=== PATIENT | male | born 1945 | race Caucasian/White ===

== ENCOUNTER 2024-04-16 18:08 | Emergency (ER) | payer OTHER, SELFPAY ==
[2024-04-16] VITALS (7 sets, daily range): BP systolic 122–151; BP diastolic 74–101; PULSE 83–89; BMI 29.6
--- NOTE | 2024-04-16 18:21 | ED.GENMED ---
History of Present Illness
General
Chief Complaint: Fainting/Passed Out
Source: patient
Exam Limitations: none
Time Seen by Provider: 04/16/24 18:09
History of Present Illness
History of Present Illness:
This is a 78 year old male that comes in with c/o dizziness and near syncope. States that he was carving the [place] and everything started to go black. States that he sat down in a chair and he was shaking. States that he remembers people around him
and putting a cool cloth on his head. States that they were asking him if he could hear them and the told them he could. States that he felt like he was outside of his body. States that he was dizzy. States that he felt a little SOB, had some dry
heaves, slight headache and dizziness. States that he was sweating. Denies any fever, chills, chest pain, abd pain, nausea, diarrhea, urinary burning
Past History
Past History
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
ED Past Surgical History: Cholecystectomy, Orthopedic (Bilateral knee surgery) and Tonsilectomy
Social History
Tobacco: Former smoker
Alcohol: None
Personal:
Living: with family
Family History
Family History: Unable to obtain
Review of Systems
Review of Systems
All Other Systems: ROS reviewed and negative except as documented in HPI and ROS
Constitutional: Reports other (Sweating, ); Denies fever or chills
EENT: Reports no symptoms
Respiratory: Reports trouble breathing; Denies cough
Cardiac: Reports no symptoms; Denies chest pain
ABD/GI: Reports other (Dry heaves); Denies abdominal pain, nausea or diarrhea
: Reports no symptoms; Denies dysuria, frequency or urgency
Musculoskeletal: Reports no symptoms
Skin: Reports no symptoms
Neurological: Reports dizzy and headache (Slight)
Psychiatric: Reports no symptoms
Phy Exam
General Physical Exam
General Presentation: no apparent distress
General age: appears stated age
General Skin: warm and dry
General Habitus: elderly
General Mental: alert
General Hydration: appears well hydrated
ENT Exam
ENT Exam: TM's normal, pharynx normal and neck supple
Eye Exam
Eye Exam: EOMI
Cardiovascular Exam
Cardiovascular Exam: regular rate/rhythm, no edema, no murmur and normal peripheral pulses
Pulmonary Exam
Pulmonary Exam: no respiratory distress, no rales, chest non tender, no crackles, no rhonchi, no cough and other (Faint exp wheezing noted on the left)
Gastrointestinal Exam
Gastrointestinal Exam: normal bowel sounds, non tender, soft, no organomegaly, no pulsatile mass and non distended
Musculoskeletal Exam
Musculoskeletal Exam: full ROM and no edema
Skin Exam
Skin Exam: normal color, warm/dry, no rash and no petechia
Psychiatric Exam
Psychiatric Exam: normal mood/affect
Course
Orders/Labs/Results
Orders:
Orders
04/16/24 18:15
Electrocardiogram (*1) Urgent
Reason for Study: Syncope
04/16/24 18:16
EKG- Treatment ONCE
04/16/24 18:20
0.9% Sodium Chloride 1000 ml [Nss] 1,000 ml IV BOLUS
04/16/24 18:21
CT Head W/o Iv Contrast Urgent
Comment:
Reason For Exam: Dizzines, headache
Urinalysis Reflex To Culture Urgent
04/16/24 18:30
Basic Metabolic Panel Urgent
Complete Blood Count/With Diff Urgent
04/16/24 19:21
Add On- LAB Urgent
Tests Added?: Liver enzymes
04/16/24 21:00
Troponin I Urgent
04/16/24 21:47
Comprehensive Metabolic Panel Urgent
04/16/24 21:54
Orthostatic VS- Treatment ONCE
Abnormal Lab Results
04/16/24 04/16/24
18:30 18:38
RBC 3.74 L 10^6/uL
(4.70-6.10)
Hgb 12.7 L g/dL
(13.0-18.0)
Hct 37.5 L %
(39.0-52.0)
MCV 100.3 H fL
(80.0-94.0)
MCH 34.0 H pg
(27.0-31.0)
MPV 10.6 H fL
(7.4-10.4)
Carbon Dioxide 20 L mmol/L
(22-30)
Glucose 122 H mg/dl
(70-99)
POC Glucose 116 H mg/dl
(70-99)
04/16/24 18:30
h/h SLIGHTLY LOW. Anemic, hyperglycemia. troponin <0.012,
Vital Signs
Initial and Last Documented VS:
Initial Vital Signs
Temp Pulse Resp Pulse Ox
98.7 F 71 16 100
04/16/24 18:10 04/16/24 18:10 04/16/24 18:10 04/16/24 18:10
Last Documented Vital Signs
Temp Pulse Resp BP Pulse Ox
98.7 F 73 17 139/101 99
04/16/24 18:10 04/16/24 20:00 04/16/24 20:00 04/16/24 20:00 04/16/24 20:00
MDM/Problems Addressed
Differential Diagnosis Includes:
Dehydration, Syncope, Hypoglycemia
MDM/Problems Addressed:
This is a 78 year old male that comes in with c/o near syncope. 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 States that he sat down in the chair. States that he is not sure if he passed out but EMS told nursing that
the patient did pass out
Will check labs, CT head, give IV fluids, ECG.
Back into see patient. Explained that the CT of his head is normal. Patient states that he is not dizzy any longer. Explained to patient that he needs to eat and drink during the day so his body has something to work with. Patient was able to get
OOB and walk around the room and is very stable. Will discharge home.
Chronic conditions affecting care:
history of CVA,
Acute Exacerbation and/or Progression of Chronic Illness:
NA
*Radiology
Radiology exam reviewed: radiology read reviewed (CT head- night hawk- No acute intracranial process. No intracranial bleed. No calvarial fracture. Unchanged mild parenchymal volume loss)
*Pulse Oximetry
Patient hypoxic: no
*[employer] Interpretation
Rate: normal
Heart Rate: 79
Rhythm: sinus
*Critical Care Note
Total Time (30-74mins, 75-104mins- exclusive of procedures): Not Applicable
ED Attending Note
-
Portions of this chart may have been created with voice recognition software.� Occasional wrong word or��sound alike� substitutions may have occurred due to the inherent limitations of voice recognition software.
Discharge Plan
Departure
Patient Disposition: Home (Routine Discharge)
Date of Disposition: 04/16/24
Time of Disposition: 22:08
Patient with high blood pressure during this ER visit?: Yes
Condition: Good
Covid-19: Not Applicable
Discharge Problem:
Near syncope, Dizziness
Instructions: Syncope (Fainting) (DC), Dizziness, Nonvertigo, (DC), BLOOD PRESSURE
Prescriptions:
No Action
simvastatin [Zocor] 10 mg Tablet
10 mg PO HS
amlodipine [Norvasc] 5 mg Tablet
5 mg PO DAILY
famotidine [Pepcid] 20 mg Tablet
20 mg PO DAILYPRN PRN (Reason: gerd)
levothyroxine [Synthroid] 50 mcg Tablet
50 mcg PO DAILY
montelukast [Singulair] 10 mg Tablet
10 mg PO HS
allopurinol 300 mg Tablet
300 mg PO DAILY
albuterol sulfate [ProAir HFA] 90 mcg/actuation Hfa Aerosol Inhaler
2 puff INHALATION R QIDPRN PRN (Reason: sob)
lisinopril 40 mg Tablet
40 mg PO DAILY
fluoxetine 20 mg Capsule
20 mg PO BID
Referrals:
Jessica Do, DO [Family Provider] - Call in 1-3 days for appt
Activity Restrictions/Additional Instructions:
As discussed, your CT of the head is negative for any acute process. Your Blood work shows that you are a little anemic but otherwise normal. Please increase your water intake to 8-8oz glasses daily. Please eat three meals daily or 6 small meals
daily as your body needs something to work with. Follow up with the family doctor for recheck. IF YOU HAVE INCREASED DIZZINESS, OR YOU HAVE ANY OTHER CONCERNS PLEASE RETURN TO THE EMERGENCY ROOM.
Interventions
Interventions:
*Risk Screen - Suicide Last Done: 04/16/24 18:10
*General Assessment Last Done: 04/16/24 18:10
*Neglect/Abuse Screening Last Done: 04/16/24 18:10
*ED COVID-19 Vaccine History Last Done: 04/16/24 18:10
ED- Cardiac Assessment Last Done: 04/16/24 18:48
ED- Neurological Assessment Last Done: 04/16/24 18:48
Discharge Date and Time
Print Language: TURKMEN
[2024-04-16] MEDS: NSS 1000 IV (18:28)
[2024-04-16 18:39] LABS: % Basophils 0.9 % (0-2); % Eosinophils 1.3 % (0-6); % Immature Granulocytes 0.4 % (0-0.5); % Lymphocytes 20.9 % (20.5-51.1); % Monocytes 6.9 % (1.7-9.3); % Neutrophils 69.6 % (42.2-75.2); Absolute Basophils 0.1 10^3/uL (0-0.2); Absolute Eosinophils 0.1 10^3/uL (0-0.7); Absolute Monocytes 0.6 10^3/uL (0.1-0.6); Absolute Neutrophils 6.5 10^3/uL (1.4-6.5); Hematocrit 37.5 % (39.0-52.0); Hemoglobin 12.7 g/dL (13.0-18.0); Mean Corp Hgb Conc. 33.9 g/dL (33.0-37.0); Mean Corpuscular Volume 100.3 fL (80.0-94.0); Mean Platelet Volume 10.6 fL (7.4-10.4); Nucleated Red Blood Cells % 0.2 % (-); Platelet Count 196 10^3/uL (130-400); Red Blood Cell Count 3.74 10^6/uL (4.70-6.10); Red Cell Dist. Width 13.2 % (11.5-14.5); White Blood Cell Count 9.3 10^3/uL (4.8-10.8)
[2024-04-16 18:40] LABS: Glucose - Point of Care 116 mg/dl (70-99)
[2024-04-16 18:56] LABS: Blood Urea Nitrogen 19 mg/dl (9-20); Calcium 9.5 mg/dl (8.4-10.2); Carbon Dioxide 20 mmol/L (22-30); Chloride 104 mmol/L (98-107); Estimated Creatinine Clearance 47 ml/min; Glucose 122 mg/dl (70-99); Sodium 139 mmol/L (135-145); eGFR 55.53
[2024-04-16 21:27] LABS: Troponin I < 0.012 ng/ml
== END 2024-04-16 23:13 | disposition home or self-care (01) ==
LOC: EMR 18:08
PROVIDERS: Clinical Nurse Specialist Family Health; EMERGENCY PHYSICIAN Emergency Medicine; FAMILY PHYSICIAN Family Medicine
DX: R55 Syncope and collapse (principal); R42 Dizziness and giddiness; I10 Essential (primary) hypertension; Z87.891 Personal history of nicotine dependence
CPT/HCPCS: 96360; 70450; 80048; 82962; 84484; 85025; 93005; 99285

== ENCOUNTER 2024-06-15 22:33 | Inpatient (IN) | payer OTHER, SELFPAY ==
[2024-06-15] VITALS (7 sets, daily range): BP systolic 133–161; BP diastolic 58–84; BMI 29.5
--- NOTE | 2024-06-15 16:44 | ED.GENMED ---
ED Provider Triage
<David Pizano PA-C - Last Filed: 06/15/24 16:45>
-
Patient seen by provider in Triage?: Seen in Triage
Attestation: A medical screening examination has been initiated by a qualified medical provider. Based on the assessment performed at this time, it has been determined that an emergent medical condition may exist and the patient has been informed
that further medical evaluation and possible additional diagnostic testing may be needed.
HPI: 79-year-old male sent to the emergency department by primary care provider for URI-like symptoms x 1 week. At office today found to be hypoxic. Sent to the ER for further evaluation. Pulse ox 86% on room air here. Placed on 2 L via nasal
cannula. Labs and chest x-ray ordered.
GENERAL: Alert , in no apparent distress
EYE: No visual abnormalities.
NECK: Trachea midline
ENT: No visible abnormalities.
LUNGS: No acute respiratory distress
NEUROLOGICAL: Alert and oriented
SKIN: Skin intact. No visible changes.
MUSCULOSKELETAL: Moving extremities normally
PSYCH: Normal and appropriate interaction.
This is a medical evaluation conducted in person to initiate diagnostic evaluation and provide initial therapeutics. Please see further documentation by the treating clinician.
History of Present Illness
<David Pizano PA-C - Last Filed: 06/15/24 16:45>
General
Chief Complaint: Breathing Problem
Time Seen by Provider: 06/15/24 18:20
<Dhruv Weinstein MD - Last Filed: 06/15/24 21:13>
General
Source: patient, family (Daughter) and physician (Discussed directly with his primary physician)
Exam Limitations: none
Nursing documentation reviewed up to this point in time: agreed with
History of Present Illness
History of Present Illness:
79-year-old male with a past medical history of hypertension and hyperlipidemia, mild asthma presents to the emergency room with his daughter�referred by his primary physician for evaluation of worsening cough and dyspnea, hypoxia. Patient reports
that he started feeling unwell with 'a cold' about 2 weeks ago�he says that he had nasal congestion/rhinorrhea, watery eyes. About a week later he started to develop a cough and he was seen by his primary doctor and prescribed benzonatate and
Robitussin DM for symptomatic relief and told to use a [place] pot. He says that he did these things but unfortunately he has had worsening cough and shortness of breath and so he scheduled a follow-up appointment. According to his primary
physician at the follow-up appointment he was labored with his breathing and hypoxic and he was referred directly to the ER. In addition to respiratory complaints he also reports nausea with occasional vomiting and diarrhea over the past week. He
says that he noticed some swelling around his ankles. He has not noted any fever. He denies any chest pain. He denies any abdominal pain. He denies any other complaints.
Past History
<David Pizano PA-C - Last Filed: 06/15/24 16:45>
Past History
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
ED Past Surgical History: Cholecystectomy, Orthopedic (Bilateral knee surgery) and Tonsilectomy
Social History
Tobacco: Former smoker
Alcohol: None
Personal:
Living: with family
Family History
Family History: Unable to obtain
Review of Systems
<Dhruv Weinstein MD - Last Filed: 06/15/24 21:13>
Review of Systems
All Other Systems: ROS reviewed and negative except as documented in HPI and ROS
Constitutional: Reports fatigue; Denies fever
EENT: Reports runny nose
Respiratory: Reports cough and trouble breathing
Cardiac: Denies chest pain or palpitations
ABD/GI: Reports nausea, vomiting and diarrhea; Denies abdominal pain
: Denies flank pain
Musculoskeletal: Reports edema; Denies neck pain or back pain
Neurological: Denies dizzy or headache
Phy Exam
<Dhruv Weinstein MD - Last Filed: 06/15/24 21:13>
Physical Exam
Physical Exam:
General: Awake, alert, oriented x3; no acute distress
Head: Normocephalic, atraumatic
Eyes: Conjunctiva normal
Throat: Airway intact, handling secretions
Neck: Trachea midline, supple without meningismus
Lungs: Mild tachypnea, normal work of breathing; pulse ox in the 80s requiring 6 L nasal cannula here; he has rales at the lung bases right greater than left and hacking cough throughout exam
Heart: Regular rate and rhythm, no murmurs, gallops, or rubs
Abd: Soft, non distended, nontender
Neuro: No gross deficits
Extremities: Trace edema around the ankles, equal pulses in all extremities
Scores
<Dhruv Weinstein MD - Last Filed: 06/15/24 21:13>
Heart Failure Risk
Heart Failure Risk Score: Not Applicable
Heart Score for Chest Pain Patients
STEMI patient?: Not applicable
Withdrawal Assessment of Alcohol
Withdrawal Assessment Completed?: Not applicable
Course
<David Pizano PA-C - Last Filed: 06/15/24 16:45>
Orders/Labs/Results
Orders:
Orders
06/15/24 17:02
COVID-19 Antigen Urgent
Source: Nasal Swab
Complete Blood Count/With Diff Urgent
Comprehensive Metabolic Panel Urgent
NT-proBNP Urgent
Influenza A+B Rapid Molecular Urgent
PHANI Source: Nasal Swab
Specimen Description:
06/15/24 18:21
CR Chest Portable - 1 View Urgent
Comment:
Reason For Exam: sob
Reason Study Needs to be Portable: Unable to Transport
06/15/24 18:44
Electrocardiogram (*1) Urgent
Reason for Study: Shortness of Breath
EKG- Treatment ONCE
06/15/24 19:07
Troponin I Urgent
06/15/24 19:48
CT Chest PE Study Urgent
Comment:
Reason For Exam: sob, hypoxia
PTT Urgent
Prothrombin Time Urgent
06/15/24 20:27
Cefepime HCl [Maxipime] 1,000 mg IV NOW STA
Vancomycin [Vancocin] 2,000 mg 0.9% Sodium Chloride 500 ml [Nss] 500 ml IV NOW
06/15/24 20:28
0.9% Sodium Chloride 1000 ml [Nss] 1,000 ml IV BOLUS
06/15/24 20:30
Blood Culture Q30M
PHANI Source: Blood/Venous
Specimen Description:
06/15/24 21:00
Blood Culture Q30M
PHANI Source: Blood/Venous
Specimen Description:
06/15/24 21:01
Ipratropium/Albuterol Sulfate [Duoneb] 3 ml INH R NOW ONE
Abnormal Lab Results
06/15/24 06/15/24
17:02 19:07
RBC 3.34 L 10^6/uL
(4.70-6.10)
Hgb 11.3 L g/dL
(13.0-18.0)
Hct 33.0 L %
(39.0-52.0)
MCV 98.8 H fL
(80.0-94.0)
MCH 33.8 H pg
(27.0-31.0)
Absolute Neuts (auto) 7.5 H 10^3/uL
(1.4-6.5)
Absolute Lymphs (auto) 0.9 L 10^3/uL
(1.2-3.4)
Absolute Monos (auto) 0.9 H 10^3/uL
(0.1-0.6)
Neutrophils % 79.9 H %
(42.2-75.2)
Lymphocytes % 9.7 L %
(20.5-51.1)
Monocytes % 10.0 H %
(1.7-9.3)
Sodium 132 L mmol/L
(135-145)
Chloride 94 L mmol/L
(98-107)
BUN 46 H mg/dl
(9-20)
Creatinine 1.6 H mg/dL
(0.7-1.3)
Glucose 126 H mg/dl
(70-99)
Troponin I 1.110 H* ng/ml
06/15/24 17:02
06/15/24 17:02
Vital Signs
Initial and Last Documented VS:
Initial Vital Signs
Temp Pulse Resp BP Pulse Ox
37.1 C 87 20 133/64 93
06/15/24 16:44 06/15/24 16:44 06/15/24 16:44 06/15/24 16:44 06/15/24 16:44
Last Documented Vital Signs
Temp Pulse Resp BP Pulse Ox
37.1 C 99 27 153/58 90
06/15/24 16:44 06/15/24 19:45 06/15/24 19:45 06/15/24 19:00 06/15/24 19:30
<Dhruv Weinstein MD - Last Filed: 06/15/24 21:13>
Orders/Labs/Results
Orders:
Orders
06/15/24 17:02
COVID-19 Antigen Urgent
Source: Nasal Swab
Complete Blood Count/With Diff Urgent
Comprehensive Metabolic Panel Urgent
NT-proBNP Urgent
Influenza A+B Rapid Molecular Urgent
PHANI Source: Nasal Swab
Specimen Description:
06/15/24 18:21
CR Chest Portable - 1 View Urgent
Comment:
Reason For Exam: sob
Reason Study Needs to be Portable: Unable to Transport
06/15/24 18:44
Electrocardiogram (*1) Urgent
Reason for Study: Shortness of Breath
EKG- Treatment ONCE
06/15/24 19:07
Troponin I Urgent
06/15/24 19:48
CT Chest PE Study Urgent
Comment:
Reason For Exam: sob, hypoxia
PTT Urgent
Prothrombin Time Urgent
06/15/24 20:27
Cefepime HCl [Maxipime] 1,000 mg IV NOW STA
Vancomycin [Vancocin] 2,000 mg 0.9% Sodium Chloride 500 ml [Nss] 500 ml IV NOW
06/15/24 20:28
0.9% Sodium Chloride 1000 ml [Nss] 1,000 ml IV BOLUS
06/15/24 20:30
Blood Culture Q30M
PHANI Source: Blood/Venous
Specimen Description:
06/15/24 21:00
Blood Culture Q30M
PHANI Source: Blood/Venous
Specimen Description:
06/15/24 21:01
Ipratropium/Albuterol Sulfate [Duoneb] 3 ml INH R NOW ONE
Abnormal Lab Results
06/15/24 06/15/24
17:02 19:07
RBC 3.34 L 10^6/uL
(4.70-6.10)
Hgb 11.3 L g/dL
(13.0-18.0)
Hct 33.0 L %
(39.0-52.0)
MCV 98.8 H fL
(80.0-94.0)
MCH 33.8 H pg
(27.0-31.0)
Absolute Neuts (auto) 7.5 H 10^3/uL
(1.4-6.5)
Absolute Lymphs (auto) 0.9 L 10^3/uL
(1.2-3.4)
Absolute Monos (auto) 0.9 H 10^3/uL
(0.1-0.6)
Neutrophils % 79.9 H %
(42.2-75.2)
Lymphocytes % 9.7 L %
(20.5-51.1)
Monocytes % 10.0 H %
(1.7-9.3)
Sodium 132 L mmol/L
(135-145)
Chloride 94 L mmol/L
(98-107)
BUN 46 H mg/dl
(9-20)
Creatinine 1.6 H mg/dL
(0.7-1.3)
Glucose 126 H mg/dl
(70-99)
Troponin I 1.110 H* ng/ml
06/15/24 17:02
06/15/24 17:02
Vital Signs
Initial and Last Documented VS:
Initial Vital Signs
Temp Pulse Resp BP Pulse Ox
37.1 C 87 20 133/64 93
06/15/24 16:44 06/15/24 16:44 06/15/24 16:44 06/15/24 16:44 06/15/24 16:44
Last Documented Vital Signs
Temp Pulse Resp BP Pulse Ox
37.1 C 99 27 153/58 90
06/15/24 16:44 06/15/24 19:45 06/15/24 19:45 06/15/24 19:00 06/15/24 19:30
<Dhruv Weinstein MD - Last Filed: 06/15/24 21:13>
MDM/Problems Addressed
Differential Diagnosis Includes:
Pneumonia, bronchitis, myocarditis with CHF, PE less likely
MDM/Problems Addressed:
79-year-old male presents for evaluation of worsening cough and shortness of breath in the setting of recent URI symptoms. Found to be hypoxic and tachypneic at PCPs office. Vitals and exam as above. Will send off labs including a CBC and a CMP.
Check proBNP and troponin. Will check COVID swab and flu. Will check chest x-ray. Check an EKG. Monitor closely reassess after the above.
Labs reviewed: CBC shows no leukocytosis, marginal anemia. CMP shows creatinine of 1.6�mild CHELSEA compared to baseline. Elevated BUN as well suggesting possible dehydration. Chest x-ray reviewed by me appears to show left retrocardiac pneumonia.
COVID and flu negative. Will send off blood cultures and cover with antibiotics. Certainly this would account for his hypoxia and cough/shortness of breath however his troponin came back markedly elevated at 1.11�certainly this could be demand
ischemia in the setting of marked hypoxia and renal insufficiency however given this finding we will check a CTA to rule out pulmonary embolism as well.
CTA negative for pulmonary embolism but does confirm multifocal pneumonia. Patient given fluids and antibiotics. CAD was noted on CT and troponin was elevated but patient is not having any chest pain and has had profound hypoxia from multifocal
pneumonia which I think is causing a demand ischemia; low suspicion for acute coronary syndrome but will trend troponins. Case discussed with hospitalist for admission.
Chronic conditions affecting care:
Asthma
<Dhruv Weinstein MD - Last Filed: 06/15/24 21:13>
*Radiology
Radiology exam reviewed: preliminary read by ED provider (Left retrocardiac pneumonia) and radiology read reviewed
*Pulse Oximetry
Patient hypoxic: yes
*EKG
Interpreted by ED Provider?: Yes
Heart Rate: 101
Rate: tachycardiac
Rhythm: sinus tachycardia
[place]: normal axis
Interval: normal interval
QRS Pattern: right bundle branch block
Ischemia: non-specific ST changes
*Critical Care Note
Total Time (30-74mins, 75-104mins- exclusive of procedures): 30
comment:
Critical care statement: A total of 30 minutes of critical care time was provided for this patient. This includes management of unstable vital signs, evaluation of the patient at bedside, frequent reassessment, discussion with
consultants/hospitalist, and review of pertinent medical records. This time was separate from time utilized to perform any aforementioned documented procedures
Data Reviewed
Review of Other/Old Records Reveals: Labs and Records
Source: patient, records and physician
<Dhruv Weinstein MD - Last Filed: 06/15/24 21:13>
Patient Management
Discussion with other providers: Hospitalist (Discussed with hospitalist)
Escalation/DeEscalation of care consider admission/obs:
Admission indicated
ED Attending Note
<David Pizano PA-C - Last Filed: 06/15/24 16:45>
-
Portions of this chart may have been created with voice recognition software.� Occasional wrong word or��sound alike� substitutions may have occurred due to the inherent limitations of voice recognition software.
Discharge Plan
Departure
Patient Disposition: Admit
Date of Disposition: 06/15/24
Time of Disposition: 21:11
Admit to doctor: [facility]
Presentation/result/management discussed w/ accepting MD/DO: Hospitalist
Discharge Problem:
Acute hypoxic respiratory failure, Pneumonia, Elevated troponin
Prescriptions:
No Action
simvastatin [Zocor] 10 mg Tablet
10 mg PO HS
amlodipine [Norvasc] 5 mg Tablet
5 mg PO DAILY
famotidine [Pepcid] 20 mg Tablet
20 mg PO DAILYPRN PRN (Reason: gerd)
levothyroxine [Synthroid] 50 mcg Tablet
50 mcg PO DAILY
montelukast [Singulair] 10 mg Tablet
10 mg PO HS
allopurinol 300 mg Tablet
300 mg PO DAILY
albuterol sulfate [ProAir HFA] 90 mcg/actuation Hfa Aerosol Inhaler
2 puff INHALATION R QIDPRN PRN (Reason: sob)
lisinopril 40 mg Tablet
40 mg PO DAILY
fluoxetine 20 mg Capsule
20 mg PO BID
Referrals:
Jessica Do, [Family Provider] -
Interventions
Interventions:
*Risk Screen - Suicide Last Done: 06/15/24 18:05
*General Assessment Last Done: 06/15/24 16:44
*Neglect/Abuse Screening Last Done: 06/15/24 18:05
ED- Fall Risk Assessment Last Done: 06/15/24 18:05
*ED COVID-19 Vaccine History Last Done: 06/15/24 18:05
ED- Cardiac Assessment Last Done: 06/15/24 18:05
ED- Pulmonary Assessment Last Done: 06/15/24 18:05
Discharge Date and Time
Print Language: FINNISH
[2024-06-15 17:22] LABS: Hemoglobin 11.3 g/dL (13.0-18.0); Mean Corp Hgb Conc. 34.2 g/dL (33.0-37.0); Mean Corpuscular Hgb 33.8 pg (27.0-31.0); Mean Corpuscular Volume 98.8 fL (80.0-94.0); Mean Platelet Volume 10.3 fL (7.4-10.4); Platelet Count 176 10^3/uL (130-400); Red Blood Cell Count 3.34 10^6/uL (4.70-6.10); Red Cell Dist. Width 13.3 % (11.5-14.5); White Blood Cell Count 9.4 10^3/uL (4.8-10.8)
[2024-06-15 17:40] LABS: % Basophils 0.2 % (0-2); % Immature Granulocytes 0.2 % (0-0.5); % Lymphocytes 9.7 % (20.5-51.1); % Neutrophils 79.9 % (42.2-75.2); Absolute Lymphocytes 0.9 10^3/uL (1.2-3.4); Absolute Monocytes 0.9 10^3/uL (0.1-0.6); Absolute Neutrophils 7.5 10^3/uL (1.4-6.5); Nucleated Red Blood Cells % 0 % (-)
[2024-06-15 17:41] LABS: NT-proBNP 922 pg/ml
[2024-06-15 17:59] LABS: COVID-19 Antigen Negative (Negative)
[2024-06-15 18:12] LABS: ALT (SGPT) 37 U/L (0-50); AST (SGOT) 41 U/L (17-59); Albumin 3.9 g/dl (3.5-5.0); Alkaline Phosphatase 98 U/L (38-126); Blood Urea Nitrogen 46 mg/dl (9-20); Calcium 8.9 mg/dl (8.4-10.2); Carbon Dioxide 25 mmol/L (22-30); Chloride 94 mmol/L (98-107); Estimated Creatinine Clearance 37 ml/min; Glucose 126 mg/dl (70-99); Potassium 4.2 mmol/L (3.5-5.1); Sodium 132 mmol/L (135-145); Total Bilirubin 1.1 mg/dl (0.2-1.3); Total Protein 6.6 g/dl (6.3-8.2); eGFR 43.02
[2024-06-15] MEDS: MAXIPIME 1000 MG IV (21:18)
[2024-06-15] MEDS: DUONEB 3 ML INH (21:19)
[2024-06-15] MEDS: NSS 1000 IV (21:19)
[2024-06-15 21:31] LABS: PT 15.5 Sec (11.4-14.6)
[2024-06-15 21:32] LABS: APTT 29.8 Sec (23.4-35.0)
[2024-06-15] MEDS: VANCOCIN 540 MG IV (21:42)
[2024-06-15 22:06] LABS: Troponin I 0.802 ng/ml
--- NOTE | 2024-06-15 22:12 | HPS.HSE ---
Family Physician
-
Family Physician: Jessica Do
Chief Complaint
-
upper respiratory symptoms
History of Present Illness
79-year-old male past medical history of hypertension, hyperlipidemia, mild asthma, skin cancer, CVA balance difficulty on right side, depression, back pain, herniated disc/bulging disc, IBS, eczema, presenting with URI symptoms for 1 week. He was
found to be hypoxemic at office today. Sent to the ER. Pulse ox 86% on room air. Patient been having cough, shortness of breath and hypoxia. He started feeling like he had a cold 2 weeks ago with nasal congestion, rhinorrhea and watery eyes. A
week later he developed cough and was seen by his primary care doctor prescribed benzonatate and Robitussin for symptomatic relief and told to use [place] pot. He has had worsening symptoms despite this. As per primary he had labored breathing and
hypoxia so was sent to the ER.
He is also been having chills and intermittent fevers, sore throat.
He also has nausea, occasional vomiting and diarrhea over the past week. Denies abdominal pain. He has some swelling around the ankles. Denies any chest pain.
He does not smoke. He quit alcohol 4 years ago.
His daughter and their family recently had upper respiratory symptoms and recently had flu.
Medical History
Past Medical History
Past Medical History: Reports Other (hypertension, hyperlipidemia, mild asthma, skin cancer, CVA balance difficulty on right side, depression, back pain, herniated disc/bulging disc, IBS, eczema)
Past Surgical History: Reports Other (Cholecystectomy, Orthopedic (Bilateral knee surgery) and Tonsilectomy)
Social History
Tobacco: Non-smoker
Alcohol: Former
Drug: None
Family History
Family History: Not pertinent
Allergies / Home Medications
Allergies reflects when Allergies were last updated in [facility].
Home Medications with original date entered in [facility]
Allergy/Medication List:
Allergies
Allergy/AdvReac Type Severity Reaction Status Date / Time
No Known Allergies Allergy Verified 06/15/24 16:44
Home Medications
albuterol sulfate 90 mcg/actuation aerosol inhaler 2 puff inhalation R QIDPRN PRN sob 04/16/24
allopurinol 300 mg tablet 300 mg PO DAILY 04/16/24
amlodipine 5 mg tablet (Norvasc) 5 mg PO DAILY 04/16/24
famotidine 20 mg tablet (Pepcid) 20 mg PO DAILYPRN PRN gerd 04/16/24
fluoxetine 20 mg capsule 20 mg PO BID 04/16/24
levothyroxine 50 mcg tablet (Synthroid) 50 mcg PO DAILY 04/16/24
lisinopril 40 mg tablet 40 mg PO DAILY 04/16/24
montelukast 10 mg tablet (Singulair) 10 mg PO HS 04/16/24
simvastatin 10 mg tablet (Zocor) 10 mg PO HS 04/16/24
Review of Systems
-
History Source: Patient
A 12 point ROS was completed and negative except as noted: Yes
Constitutional: Reports No Symptoms
EENT: Reports No Symptoms
Respiratory: Reports See HPI
Cardiac: Reports No Symptoms
Abdomen/GI: Reports No Symptoms
: Reports No Symptoms
Musculoskeletal: Reports No Symptoms
Skin: Reports No Symptoms
Neurological: Reports No Symptoms
Endocrine: Reports No Symptoms
Hematologic/Lymphatic: Reports No Symptoms
Psych: Reports No Symptoms
Physical Exam
Vital Signs
Vital Signs
Temp Pulse Resp BP Pulse Ox
98.7 F 119 32 147/60 88
06/15/24 16:44 06/15/24 21:45 06/15/24 21:45 06/15/24 21:02 06/15/24 21:45
Physical Exam
General: Well Developed, Well Nourished and No Apparent Distress
HEENT: NormoCephalic, Moist mucous membranes and Atraumatic
Respiratory: Wheezes
Cardiac: S1/S2 and Regular Rhythm; No Murmur or Rub
GI: Soft, Non Tender, Non Distended and Normal Bowel Sounds; No Organomegaly
Rectal: Deferred by Provider
Musculoskeletal: No Clubbing, No Cyanosis and No Edema
Skin: No Rash
Neuro: Nonfocal/grossly intact
Laboratory Results
-
06/15/24 17:02
06/15/24 17:02
Laboratory Results
PT 15.5 Sec (11.4-14.6) H 06/15/24 21:09
INR 1.20 06/15/24 21:09
APTT 29.8 Sec (23.4-35.0) 06/15/24 21:09
Total Bilirubin 1.1 mg/dl (0.2-1.3) 06/15/24 17:02
AST 41 U/L (17-59) 06/15/24 17:02
ALT 37 U/L (0-50) 06/15/24 17:02
Alkaline Phosphatase 98 U/L (38-126) 06/15/24 17:02
Troponin I 0.802 ng/ml H* D 06/15/24 21:20
Data Reviewed
-
Lab Data: Labs Reviewed by me
Impression/Plan
-
IMPRESSION:
PLAN:
# Multifocal pneumonia/acute viral bronchitis
-Patchy parenchymal opacity within both lung lobes as per chest x-ray
-CT PE shows confluent parenchymal airspace opacity within both lower lobes likely multifocal pneumonia
-COVID and influenza negative
-Blood cultures pending
-IV fluids
-Sputum culture
-Vancomycin/cefepime given in ER will switch to ceftriaxone/doxycycline
-Check strep antigen, Legionella, MRSA
-DuoNebs every 6 hours
# Acute kidney injury
-Continue IV fluids
-Hold lisinopril
# Nonischemic myocardial injury
-Troponin of 1
-Trend troponins
-No chest pain
-EKG shows sinus tachycardia with right bundle branch block, right bundle is old
Mild asthma
-Continue albuterol
-Continue montelukast
Essential hypertension
-Continue amlodipine
-Hold lisinopril
Hyperlipidemia
-Continue statin
Skin cancer
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
Depression
-Continue fluoxetine
Chronic back pain
Herniated disc/bulging disc
History of IBS
Eczema
Gout
-Continue allopurinol
Hypothyroidism
-Continue levothyroxine
Full code
DVT prophylaxis�heparin
Regular diet
[2024-06-16] VITALS (24 sets, daily range): BP systolic 118–156; BP diastolic 50–88; BMI 28.3
[2024-06-16] MEDS: NSS 1000 IV (03:31)
[2024-06-16] MEDS: VIBRAMYCIN 260 MG IV ×2 (04:20→16:50)
[2024-06-16] MEDS: STERILE WATER FOR INJECTION 10 ML IV (06:27)
[2024-06-16] MEDS: ROCEPHIN 1000 MG IV (06:27)
[2024-06-16 07:15] LABS: Hematocrit 29.3 % (39.0-52.0); Mean Corp Hgb Conc. 34.1 g/dL (33.0-37.0); Mean Corpuscular Hgb 33.6 pg (27.0-31.0); Mean Corpuscular Volume 98.3 fL (80.0-94.0); Platelet Count 170 10^3/uL (130-400); Red Blood Cell Count 2.98 10^6/uL (4.70-6.10); White Blood Cell Count 9.7 10^3/uL (4.8-10.8)
[2024-06-16 07:24] LABS: ALT (SGPT) 35 U/L (0-50); AST (SGOT) 53 U/L (17-59); Albumin 2.8 g/dl (3.5-5.0); Alkaline Phosphatase 84 U/L (38-126); Blood Urea Nitrogen 36 mg/dl (9-20); Carbon Dioxide 22 mmol/L (22-30); Chloride 103 mmol/L (98-107); Estimated Creatinine Clearance 54 ml/min; Glucose 107 mg/dl (70-99); Potassium 3.8 mmol/L (3.5-5.1); Sodium 136 mmol/L (135-145); Total Bilirubin 0.7 mg/dl (0.2-1.3); Total Protein 5.3 g/dl (6.3-8.2); eGFR > 60.00
[2024-06-16] MEDS: HEPARIN 5000 UNITS SC (08:23)
[2024-06-16] MEDS: LOW STRENGTH ASPIRIN 324 MG PO (08:47)
[2024-06-16 09:08] LABS: APTT 31.7 Sec (23.4-35.0)
--- NOTE | 2024-06-16 09:20 | CON.CAR ---
Addendum entered and electronically signed by Carlos Gtz MD 06/16/24 09:41:
I saw and examined the patient.
The BOOKS BINDER's note was reviewed and I agree with the note.
Comment: 79-year-old male with hypertension, dyslipidemia, and asthma who presented to the emergency department with hypoxia. He saw his PCP, Dr. Jessica Do and was found to be hypoxic. In the ER he has been found to have multifocal pneumonia
and troponin elevation to 8.
He does not endorse symptoms of angina or other concerning symptoms for ACS. I suspect this is likely due to his significant multifocal PNA and significant hypoxia requiring oxygen. However, we will obtain an echocardiogram and place him on
heparin for 48 hrs, and give him aspirin. Pending echocardiogram likely outpt stress test unless significant LV dysfunction.
- echo pending, if significant LV dysfunction then would plan for coronary angiography while in hospital, but recovering from multifocal PNA
- heparin gtt 48 hrs
- aspirin statin for risk factor modification
Original Note:
Consultation
Consultation Request
Date/Time Consultation Requested: 06/16/2024 08:30
Date/Time Consultation Performed: 06/16/2024 08:45
Requesting Provider: Dr. Laughlin
Performing Provider: HAZEL Liu for Dr. Tucker
Reason for Consultation: Abnormal troponin
Medical History
-
Chief Complaint: Shortness of breath
History of Present Illness:
Seymour Landa is an 79-year-old male with hypertension, dyslipidemia, and asthma who presented to the emergency department with hypoxia. He saw his PCP, Dr. Jessica Do and was found to be hypoxic. Seymour reports feeling unwell for almost 2 weeks.
He had a viral illness and thought every day he would get better but he actually continued to worsen. He has been very weak and using a wheelchair. He is admitted with multifocal pneumonia. Cardiology was consulted for an abnormal troponin.
Troponin currently 8.109. He has no chest pain. He has a chronic right bundle branch block on his EKG.
Past Medical History
Past Medical History: Asthma, HTN, Hypercholesterolemia and Hypothyroidism
Past Surgical History: Cholecystectomy and Tonsilectomy
Social History
Tobacco: Former Smoker
Personal:
Living: With Family (Daughter)
Employment: Retired (Finance)
Family History
Family History: Reviewed & Not Pertinent
Allergies / Home Medications
Allergy/AdvReac Type Severity Reaction Status Date / Time
No Known Allergies Allergy Verified 06/15/24 16:44
�Medication �Instructions �Recorded �Confirmed �Type
albuterol sulfate 90 mcg/actuation 2 puff inhalation R QIDPRN PRN sob 04/16/24 06/16/24 History
aerosol inhaler
allopurinol 300 mg tablet 300 mg PO DAILY 04/16/24 06/16/24 History
amlodipine 5 mg tablet (Norvasc) 5 mg PO DAILY 04/16/24 06/16/24 History
famotidine 20 mg tablet (Pepcid) 20 mg PO DAILYPRN PRN gerd 04/16/24 06/16/24 History
fluoxetine 20 mg capsule 20 mg PO BID 04/16/24 06/16/24 History
levothyroxine 50 mcg tablet 50 mcg PO DAILY 04/16/24 06/16/24 History
(Synthroid)
lisinopril 40 mg tablet 40 mg PO DAILY 04/16/24 06/16/24 History
montelukast 10 mg tablet 10 mg PO DAILYPRN PRN SOB 04/16/24 06/16/24 History
(Singulair)
simvastatin 10 mg tablet (Zocor) 10 mg PO HS 04/16/24 06/16/24 History
Review of Systems
-
History Source: Patient
All other systems: Negative unless noted
Constitutional: Fatigue and Chills
EENT: No Symptoms
Respiratory: Cough and Trouble Breathing
Cardiac: No Symptoms
Abdomen/GI: No Symptoms
: No Symptoms
Musculoskeletal: No Symptoms
Skin: No Symptoms
Neurological: Weakness
Endocrine: No Symptoms
Hematologic/Lymphatic: No Symptoms
Physical Exam
Vital Signs
Temp Pulse Resp BP Pulse Ox
98.7 F 98 24 146/81 93
06/15/24 16:44 06/16/24 08:21 06/16/24 07:38 06/16/24 08:21 06/16/24 08:21
Lab Results
06/16/24 06:42
Troponin I 8.190 ng/ml H* D 06/16/24 06:42
Plh-J-Sswescztirp Pept 922 pg/ml 06/15/24 17:02
Physical Exam
General: Well Developed, Well Nourished and Comfortable
HEENT: Normocephalic, Anicteric and Moist Mucous Membranes
Respiratory: Rhonchi and Accessory Resp Muscle Use
Cardiac: S1/S2, Regular Rhythm and Peripheral Edema (+1 B/L LE edema)
Breast: Deferred by me
GI: Soft, Non Tender, Non Distended and Normal Bowel Sounds
Rectal: Deferred by Provider
Genito-urinary: No Costovertebral Tender
Musculoskeletal: No Clubbing and No Cyanosis
Skin: Warm and Dry
Neuro: AO x 3
Hematologic/Lymphatic: No Lymphadenopathy
Psych: Calm
Impression / Plan
-
IMPRESSION/PLAN: 79M with hypertension, dyslipidemia, and asthma who presented to the emergency department with hypoxia
Acute hypoxemic respiratory failure - in the setting of multifocal pneumonia
-Requiring 15 L nasal cannula
-Antibiotics per primary
Abnormal troponin, likely type II HI in the setting of demand ischemia
-He has no chest pain
-Trend troponin to peak
-ASA 324 x 1 now, start heparin drip
-Echocardiogram
Hypertension
-BP slightly elevated, continue amlodipine, hold Linsionopril
Dyslipidemia, fasting lipid panel in a.m.
Coronary artery calcifications on CT
Former smoker, continue cessation recommended
Data Reviewed
-
EKG: Report Reviewed by me
CT Scan: Report Reviewed by me
Labs: Labs Reviewed by me
Old Records: Reviewed
[2024-06-16] MEDS: HEPARIN 25000 UNITS/250 ML IV (09:34)
[2024-06-16 10:22] LABS: Absolute Neutrophils -Man Diff 8.4 10^3/uL (1.4-6.5); Band Neutrophils 31 % (0-3); Lymphocytes 5 % (20-51); Metamyelocytes 4 % (-); Monocytes 4 % (2-9); Normal RBC Morphology Yes; Platelets Checked Yes; Segmented Neutrophils 56 % (42-75); Total Cells Counted 100
[2024-06-16] MEDS: NORVASC 5 MG PO (13:07)
[2024-06-16] MEDS: ROBITUSSIN DM 10 ML PO ×2 (13:49→23:41)
--- NOTE | 2024-06-16 15:07 | W.PN.HOSP.TC ---
Today's Communication/Plan
-
abx
incentive dinesh, acapella
hep ggt, asa
anticipate LHC
Assessment / Plan
Assessment / Plan
Physical Exam
General: Well Developed, Well Nourished and No Apparent Distress
HEENT: NormoCephalic, Moist mucous membranes and Atraumatic
Respiratory: Wheezes
Cardiac: S1/S2 and Regular Rhythm; No Murmur or Rub
GI: Soft, Non Tender, Non Distended and Normal Bowel Sounds; No Organomegaly
Rectal: Deferred by Provider
Musculoskeletal: No Clubbing, No Cyanosis and No Edema
Skin: No Rash
Neuro: Nonfocal/grossly intact
#Acute hypoxic respiratory failure
# Multifocal pneumonia
-CT PE shows confluent parenchymal airspace opacity within both lower lobes likely multifocal pneumonia
-COVID and influenza negative
-Blood cultures pending
-IVF
-Sputum culture
-Vancomycin/cefepime given in ER will switch to ceftriaxone/doxycycline
-strep antigen, Legionella negative;
-DuoNebs every 6 hours
-Incentive dinesh
#NSTEMI
-LV ejection fraction is approximately 55%. Apical akinesis/dyskinesis. Severe
basal inferior hypokinesis.
-Hep ggt
-ASA
-Cards consulted
-anticipate LHC
�Trend to peak
# Acute kidney injury, resolved
-Continue IV fluids
-Hold lisinopril
Mild asthma
-Continue albuterol
-Continue montelukast
Essential hypertension
-Continue amlodipine
-Hold lisinopril
Hyperlipidemia
-Continue statin
Skin cancer
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
Depression
-Continue fluoxetine
Chronic back pain
Herniated disc/bulging disc
History of IBS
Eczema
Gout
-Continue allopurinol
Hypothyroidism
-Continue levothyroxine
Full code
DVT prophylaxis�heparin
Regular diet
Total time spent on today's encounter was 50 minutes which included time spent in counseling the patient/family regarding diagnosis and treatment plan as listed above, goals of care, and symptom management. Case was discussed with nursing staff,
specialists, and care coordinators/case management. All labs and imaging personally reviewed by me. Remainder the time spent in detailed review of previous records, lab data, imaging, and other medical provider documentation.
Anticipated Discharge: > 48 hours
Subjective/Interval History
-
Date of Service: June 16, 2024
Requiring increased oxygen, 15 L, multifocal pneumonia
Objective Data
-
Labs:
Laboratory Results
06/16/24 06/16/24 06/16/24
06:42 08:28 08:44
WBC 9.7 Pending
Hgb 10.0 L Pending
Hct 29.3 L Pending
Plt Count 170 Pending
APTT 31.7
Sodium 136
Potassium 3.8
Chloride 103
Carbon Dioxide 22
BUN 36 H
Creatinine 1.1
Glucose 107 H
Calcium 8.0 L
Total Bilirubin 0.7
AST 53
ALT 35
Alkaline Phosphatase 84
06/16/24
15:04
WBC
Hgb
Hct
Plt Count
APTT Pending
Sodium
Potassium
Chloride
Carbon Dioxide
BUN
Creatinine
Glucose
Calcium
Total Bilirubin
AST
ALT
Alkaline Phosphatase
Vital Signs:
Vital Signs
Temp Pulse Resp BP Pulse Ox
98.7 F 86 24 122/88 94
06/15/24 16:44 06/16/24 09:59 06/16/24 07:38 06/16/24 13:07 06/16/24 13:58
Review of Systems
-
History Source: Patient
All other systems: Not reviewed unless documented
Data Reviewed
-
Diagnostic Radiology: Report Reviewed by me
CT Scan: Report Reviewed by me
Medical Tests (Nuc Med, Echo etc): Report Reviewed by me
Labs: Labs Reviewed by me
[2024-06-16 15:24] LABS: APTT 38.3 Sec (23.4-35.0)
--- NOTE | 2024-06-16 16:20 | PTCARENOTE ---
Pt received on 15L MFNC. Breath sounds with rhonchi nursing home up. Pt complains of frequent cough productive of dark sputum per pt. Pt assisted up to the chair with a 1 person standby assist. After getting into the chair, coached pt on the use of IS.
Now able to wean pt down on his O2, currently 12L MFNC. Family at bedside, all questions answered.
[2024-06-16 22:08] LABS: APTT 67.5 Sec (23.4-35.0)
[2024-06-17] VITALS (27 sets, daily range): BP systolic 93–146; BP diastolic 42–105
--- NOTE | 2024-06-17 01:11 | W.PN.UPDATE ---
Addendum entered and electronically signed by HAZEL Ashford 06/17/24 06:07:
At approx 5:45, patient back in afib, HR 140's. Cardizem gtt started.
Original Note:
Update Note
Progress Note Update
Approximately 0014, patient HR increased to 120-140's, EKG showed afib w/RVR and RBBB. No hx of afib, confirmed with patient. TT Cardiology, reviewed with Dr. Salamanca, appreciate her recommendations. Ordered Cardizem gtt.
TT received from RN, patient converted back to NSR at approx 1:30 am. Cardizem gtt was not initiated, RN was just about to hang. Will continue to monitor off Cardizem gtt for now.
[2024-06-17] MEDS: CARDIZEM IV (01:38)
[2024-06-17] MEDS: TESSALON PERLES 100 MG PO ×2 (01:38→09:10)
--- NOTE | 2024-06-17 02:12 | PTCARENOTE ---
Pt noted to be in rapid afib at 00:15. OUT PATIENT THERAPIST notified via [facility]. EKG showed afib with RVR and R BBB. Pt slightly more SOB but otherwise asymptomatic. HR sustaining 140-150s. Cardizem gtt ordered and verified by pharmacy at 01:30. Pt converted to
NSR spontaneously at 01:35, before the cardizem gtt was started. OUT PATIENT THERAPIST notified. EKG done to verify. EKG showed NSR with R BBB. HR 93. All other VSS. Cardizem gtt held at this time.
[2024-06-17 04:39] LABS: Hemoglobin 10.4 g/dL (13.0-18.0); Mean Corp Hgb Conc. 34.7 g/dL (33.0-37.0); Mean Corpuscular Hgb 33.8 pg (27.0-31.0); Mean Corpuscular Volume 97.4 fL (80.0-94.0); Mean Platelet Volume 10.8 fL (7.4-10.4); Platelet Count 199 10^3/uL (130-400); Red Blood Cell Count 3.08 10^6/uL (4.70-6.10); Red Cell Dist. Width 13.1 % (11.5-14.5); White Blood Cell Count 15.1 10^3/uL (4.8-10.8)
[2024-06-17 04:53] LABS: APTT 66.8 Sec (23.4-35.0)
[2024-06-17 05:10] LABS: ALT (SGPT) 43 U/L (0-50); AST (SGOT) 64 U/L (17-59); Albumin 2.9 g/dl (3.5-5.0); Alkaline Phosphatase 102 U/L (38-126); Blood Urea Nitrogen 32 mg/dl (9-20); Calcium 7.9 mg/dl (8.4-10.2); Carbon Dioxide 22 mmol/L (22-30); Chloride 102 mmol/L (98-107); Estimated Creatinine Clearance 60 ml/min; Glucose 106 mg/dl (70-99); Magnesium 2.3 mg/dl (1.6-2.3); Potassium 3.8 mmol/L (3.5-5.1); Sodium 135 mmol/L (135-145); Total Bilirubin 0.8 mg/dl (0.2-1.3); Total Protein 5.3 g/dl (6.3-8.2); eGFR > 60.00
[2024-06-17] MEDS: VIBRAMYCIN 260 MG IV ×2 (05:11→17:28)
[2024-06-17] MEDS: STERILE WATER FOR INJECTION 10 ML IV (05:14)
[2024-06-17] MEDS: ROCEPHIN 1000 MG IV (05:14)
[2024-06-17] MEDS: CARDIZEM 125 IV ×2 (05:44→12:44)
[2024-06-17] MEDS: HEPARIN 25000 UNITS/250 ML IV ×2 (05:50→21:26)
--- NOTE | 2024-06-17 06:01 | PTCARENOTE ---
Pt back in afib @ 05:30. Cardizem gtt started.
--- NOTE | 2024-06-17 08:19 | W.PN.CD ---
Today's Communication / Plan
-
- Discontinue Amlodipine
- Hold Losartan
- Start Diltiazem 60 tid
- Digoxin 250 IV x1 and then PO
- Start Metoprolol 12.5 mg BID
- Continue ASA and heparin
- Plan for cath before discharge after PNA treatment.
Impression / Plan
-
IMPRESSION/PLAN: 79M with hypertension, dyslipidemia, and asthma who presented to the emergency department with hypoxia
Atrial fibrillation
- AF / flutter with RVR
- Now in atypical atrial flutter with variable conduction with mostly 2:1 at 150 bpm
- On heparin and Diltiazem gtt
- Rates are poorly controlled.
- Cr and K is normal, will start Digoxin and wean off Dilt gtt
- ECHO 06/16/24 - LV ejection fraction is approximately 55%. Apical akinesis/dyskinesis. Severe basal inferior hypokinesis.
Acute hypoxemic respiratory failure - in the setting of multifocal pneumonia
-Requiring 15 L nasal cannula
-Antibiotics per primary
Abnormal troponin, likely type II UT in the setting of demand ischemia
-He has no chest pain
-Trop went from 1.7 to peaked at 8.1 and then 7.1 on 06/16
-s/p ASA 324
-Now on ASA and heparin drip
-Echocardiogram 06/16/24 - LV ejection fraction is approximately 55%. Apical akinesis/dyskinesis. Severe basal inferior hypokinesis.
-Treating PNA now. Will need cardiac cath before discharge.
Hypertension
-BP stable now
- Hold amlodipine, and Lisinopril
- Weill switch amlodipine to Diltiazem
- Add Metoprolol and Digoxin.
Dyslipidemia, fasting lipid panel in a.m.
Coronary artery calcifications on CT
Former smoker, continue cessation recommended
Physical Exam
Vital Signs/Labs
Vital Signs
Temp Pulse Resp BP Pulse Ox
98.1 F 141 24 114/69 92
06/17/24 04:45 06/17/24 06:30 06/17/24 06:30 06/17/24 06:30 06/17/24 06:30
06/16/24 06/17/24 06/18/24
06:59 06:59 06:59
Actual Weight 93.1 kg 89.358 kg
06/17/24 04:28
06/17/24 04:28
PT 15.5 Sec (11.4-14.6) H 06/15/24 21:09
INR 1.20 06/15/24 21:09
APTT 66.8 Sec (23.4-35.0) H 06/17/24 04:28
Magnesium 2.3 mg/dl (1.6-2.3) 06/17/24 04:28
06/15/24
17:02
Hqq-Q-Txrflhnwmep Pept 922
LAB Results
06/15/24 06/15/24 06/16/24
19:07 21:20 01:25
Troponin I 1.110 H* 0.802 H* D 1.770 H* D
06/16/24 06/16/24
06:42 15:05
Troponin I 8.190 H* D 7.100 H*
Physical Exam
Constitutional: No acute distress, Comfortable and Other (cough and on oxygen)
EENT: Anicteric and Moist mucous membranes
Cardiovascular: Rhythm/rate is irregular, JVD present and Systolic murmur present
Respiratory: Labored respirations, Crackles Present and Rhonchi Present
GI: Soft, Non tender and Normal bowel sounds
Neuro/Psych: Alert, Oriented and AO x 3
Data Reviewed
-
Date of Service: June 17, 2024
Medical Decision Making: Reviewed Test Results, Test Interpretation and Review of Case with other Provider
EKG: Tracing Personally Visualized and interpreted
Echo: Report Reviewed by me
Labs: Labs Reviewed by me
Old Records: Reviewed
Critical Care Time (in minutes): 35
[2024-06-17] MEDS: ASPIR LOW (ENTERIC COATED) 81 MG PO (09:11)
[2024-06-17] MEDS: LOPRESSOR 12.5 MG PO ×2 (09:11→20:14)
[2024-06-17] MEDS: LANOXIN 250 MCG IV (09:11)
[2024-06-17] MEDS: NORVASC PO (09:14)
[2024-06-17] MEDS: ROBITUSSIN DM 10 ML PO ×4 (09:15→21:27)
--- NOTE | 2024-06-17 10:24 | PTCARENOTE ---
Received this am tele shows AFib rates 130s-150s, BP 130/60 RR 26 on 14L midflow O2 sao2 94%- Relayed to providers. IV Digoxin, po Metoprolol given as ordered currently Tele shows AF 70s-80s BP 105/72 RR 19. Condom cath placed for energy
conservation. Constantly feeling like he needs to have bm attempted bedpan unsuccessful- will try to get up once rates stable. Freq. harsh non prod cough- PRN Robitussin and Tessalon Perles given.
[2024-06-17] MEDS: LANOXIN 250 MCG PO (12:44)
[2024-06-17 12:50] LABS: APTT 60.6 Sec (23.4-35.0)
--- NOTE | 2024-06-17 13:36 | PTCARENOTE ---
AFIB rates 70s-80s - tapered IV Cardizem to 10mg/hr.
--- NOTE | 2024-06-17 14:45 | W.PN.HOSP.TC ---
Today's Communication/Plan
-
wean o2 as tolerated
incentive dinesh
Repeat blood cultures
Antibiotics
A-fib control as per cardiology
Aspirin, heparin drip
Ultimately, will need left heart cath prior to discharge
Assessment / Plan
Assessment / Plan
Physical Exam
General: Well Developed, Well Nourished and No Apparent Distress
HEENT: NormoCephalic, Moist mucous membranes and Atraumatic
Respiratory: exp Wheezes
Cardiac: S1/S2 and irregular Rhythm; No Murmur or Rub
GI: Soft, Non Tender, Non Distended and Normal Bowel Sounds; No Organomegaly
Rectal: Deferred by Provider
Musculoskeletal: No Clubbing, No Cyanosis and No Edema
Skin: No Rash
Neuro: Nonfocal/grossly intact
#Acute hypoxic respiratory failure
# Multifocal pneumonia
-CT PE shows confluent parenchymal airspace opacity within both lower lobes likely multifocal pneumonia
-COVID and influenza negative
-Blood cultures pending
-IVF
-Sputum culture
-Vancomycin/cefepime given in ER will switch to ceftriaxone/doxycycline
-strep antigen, Legionella negative;
-MRSA negative
-DuoNebs every 6 hours
-Incentive dinesh
#Sepsis
-Multifocal Pneumonia
-Bacteremia
-Staph aureus in the blood, f/u final cultures
-repeat blood cultures
-cont abx
-MRSA neg
#NSTEMI
-LV ejection fraction is approximately 55%. Apical akinesis/dyskinesis. Severe
basal inferior hypokinesis.
-Hep ggt
-ASA
-Cards consulted
-anticipate LHC once hypoxia improves
#Afib
-hep ggt
-Diltiazem ggt
-Start diltiazem 60mg tid
-dig x 1 then PO
-Toprol 12.mg bid
# Acute kidney injury, resolved
-Continue IV fluids
-Hold lisinopril
Mild asthma
-Continue albuterol
-Continue montelukast
Essential hypertension
-Continue amlodipine
-Hold lisinopril
Hyperlipidemia
-Continue statin
Skin cancer
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
Depression
-Continue fluoxetine
Chronic back pain
Herniated disc/bulging disc
History of IBS
Eczema
Gout
-Continue allopurinol
Hypothyroidism
-Continue levothyroxine
Full code
DVT prophylaxis�heparin
Regular diet
Total time spent on today's encounter was 55 minutes which included time spent in counseling the patient/family regarding diagnosis and treatment plan as listed above, goals of care, and symptom management. Case was discussed with nursing staff,
specialists, and care coordinators/case management. All labs and imaging personally reviewed by me. Remainder the time spent in detailed review of previous records, lab data, imaging, and other medical provider documentation.
Anticipated Discharge: > 48 hours
Subjective/Interval History
-
Date of Service: June 17, 2024
ppm placed, ascitic fluid and stool on ct
Objective Data
-
Labs:
Laboratory Results
06/17/24 06/17/24 06/17/24
04:28 12:28 19:30
WBC 15.1 H
Hgb 10.4 L
Hct 30.0 L
Plt Count 199
APTT 66.8 H 60.6 H Pending
Sodium 135
Potassium 3.8
Chloride 102
Carbon Dioxide 22
BUN 32 H
Creatinine 1.0
Glucose 106 H
Calcium 7.9 L
Total Bilirubin 0.8
AST 64 H
ALT 43
Alkaline Phosphatase 102
Vital Signs:
Vital Signs
Temp Pulse Resp BP Pulse Ox
98.2 F 84 24 120/58 93
06/17/24 11:00 06/17/24 12:01 06/17/24 12:01 06/17/24 12:01 06/17/24 12:01
I&O
06/16/24 06/17/24 06/18/24
06:59 06:59 06:59
Intake Total 880 / 880
Output Total 450 / 450
Balance 430 / 430
Review of Systems
-
History Source: Patient
All other systems: Not reviewed unless documented
Data Reviewed
-
Diagnostic Radiology: Report Reviewed by me
CT Scan: Report Reviewed by me
Medical Tests (Nuc Med, Echo etc): Report Reviewed by me
Labs: Labs Reviewed by me
[2024-06-17] MEDS: CARDIZEM 60 MG PO ×2 (17:25→21:27)
[2024-06-17] MEDS: TESSALON PERLES 200 MG PO ×2 (17:28→21:27)
--- NOTE | 2024-06-17 18:38 | PTCARENOTE ---
AFib rates remained 70s-80s- IV Cardizem gtt tapered down then po dose Cardizem given then dcd. IV Heparin gtt per protocol. BC drawn and sent to lab. OROSCOE to chair this pm assist x1. Condom cath fell off- will replace if needed when back in
bed. No stool today. Appetite poor- being very cautious. Tolerating po fluids.
[2024-06-17 20:06] LABS: APTT 72.7 Sec (23.4-35.0)
[2024-06-18] VITALS (12 sets, daily range): BP systolic 116–149; BP diastolic 49–126; BMI 28.8
--- NOTE | 2024-06-18 01:19 | PTCARENOTE ---
assumed care of patient. pt is AAOx3, able to make needs known. pt remains on 14L MF, oxygen 91-94%. pt can be SOB on exertion but more so when coughing. pt does have a dry moist cough. PRN meds given. pt sitting in chair at beginning of shift, went
back to bed x1 assist. no c/o pain. care ongoing.
[2024-06-18 03:38] LABS: Hematocrit 29.4 % (39.0-52.0); Hemoglobin 10.4 g/dL (13.0-18.0); Mean Corp Hgb Conc. 35.4 g/dL (33.0-37.0); Mean Corpuscular Hgb 33.8 pg (27.0-31.0); Mean Corpuscular Volume 95.5 fL (80.0-94.0); Mean Platelet Volume 10.6 fL (7.4-10.4); Platelet Count 239 10^3/uL (130-400); Red Blood Cell Count 3.08 10^6/uL (4.70-6.10); Red Cell Dist. Width 13.2 % (11.5-14.5); White Blood Cell Count 18.8 10^3/uL (4.8-10.8)
[2024-06-18 03:51] LABS: ALT (SGPT) 49 U/L (0-50); AST (SGOT) 55 U/L (17-59); Albumin 2.7 g/dl (3.5-5.0); Alkaline Phosphatase 117 U/L (38-126); Blood Urea Nitrogen 35 mg/dl (9-20); Calcium 8.2 mg/dl (8.4-10.2); Carbon Dioxide 20 mmol/L (22-30); Chloride 103 mmol/L (98-107); Estimated Creatinine Clearance 60 ml/min; Glucose 108 mg/dl (70-99); Magnesium 2.3 mg/dl (1.6-2.3); Potassium 3.7 mmol/L (3.5-5.1); Sodium 134 mmol/L (135-145); Total Bilirubin 0.7 mg/dl (0.2-1.3); Total Protein 5.3 g/dl (6.3-8.2); eGFR > 60.00
[2024-06-18] MEDS: VIBRAMYCIN 260 MG IV (04:43)
[2024-06-18] MEDS: ROCEPHIN 1000 MG IV (04:45)
[2024-06-18] MEDS: STERILE WATER FOR INJECTION 10 ML IV (04:45)
--- NOTE | 2024-06-18 05:32 | PTCARENOTE ---
pt continues with dry hacking cough throughout the night. pt refusing cough medicine at this time. states it makes him 'nauseous' and 'it doesn't work anyways.' pt remains on 14L MF 92-96%.
[2024-06-18] MEDS: ASPIR LOW (ENTERIC COATED) 81 MG PO (07:55)
[2024-06-18] MEDS: LOPRESSOR 12.5 MG PO ×2 (07:55→20:19)
[2024-06-18] MEDS: CARDIZEM 60 MG PO (07:55)
[2024-06-18] MEDS: TESSALON PERLES 200 MG PO ×2 (10:15→20:20)
[2024-06-18 10:25] LABS: APTT 59.9 Sec (23.4-35.0)
--- NOTE | 2024-06-18 10:52 | CM ---
Patient with Dx PNA, Afib, VT. O2 14-15L midflow. Receiving IV Abx, Heparin gtt, Cardizem now PO. Per nursing, has been OOB to chair.
Met with patient and spoke with daughter Neva by phone;
the patient resides with his daughter in a 2 story condo with 1 [address] and 14 inside stairs.
He has been independent in ADLs and ambulation.
The patient was active, driving, going out shopping on his own.
The patient has no DME.
No prior VN or SNF.
PCP - Jessica oD
Pharmacy - [facility]
Patient may benefit from PT Eval when less medically acute.
Plan follow patient's mobility and O2 needs.
Plan probable home.
--- NOTE | 2024-06-18 12:35 | W.PN.CD ---
Today's Communication / Plan
-
- Switch short acting dilt to 240 mg QD.
- Plan for cardiac cath before discharge
Impression / Plan
-
IMPRESSION/PLAN: 79M with hypertension, dyslipidemia, and asthma who presented to the emergency department with hypoxia
Atrial fibrillation
- AF / flutter with RVR - now in sinus
- at 11 am converted to sinus.
- On heparin
- Will stop Diltiazem gtt
- Will switch Diltiazem to 240 mg qd.
- Continue Digoxin and Metoprolol
- ECHO 06/16/24 - LV ejection fraction is approximately 55%. Apical akinesis/dyskinesis. Severe basal inferior hypokinesis.
Acute hypoxemic respiratory failure - in the setting of multifocal pneumonia
-Requiring 15 L nasal cannula
-Antibiotics per primary
Abnormal troponin, likely type II PR in the setting of demand ischemia
-He has no chest pain
-Trop went from 1.7 to peaked at 8.1 and then 7.1 on 06/16
-s/p ASA 324
-Now on ASA and heparin drip
-Echocardiogram 06/16/24 - LV ejection fraction is approximately 55%. Apical akinesis/dyskinesis. Severe basal inferior hypokinesis.
-Treating PNA now. Will need cardiac cath before discharge.
Hypertension
- BP stable now
- Hold amlodipine, and Lisinopril
- Weill switch amlodipine to Diltiazem
- Continue Metoprolol and Digoxin.
Dyslipidemia, fasting lipid panel in a.m.
Coronary artery calcifications on CT
Former smoker, continue cessation recommended
Physical Exam
Vital Signs/Labs
Vital Signs
Temp Pulse Resp BP Pulse Ox
98.4 F 86 20 121/71 93
06/18/24 07:36 06/18/24 10:12 06/18/24 10:12 06/18/24 10:12 06/18/24 10:12
06/17/24 06/18/24 06/19/24
06:59 06:59 06:59
Actual Weight 89.358 kg 91.2 kg
06/18/24 02:29
06/18/24 02:29
PT 15.5 Sec (11.4-14.6) H 06/15/24 21:09
INR 1.20 06/15/24 21:09
APTT 59.9 Sec (23.4-35.0) H 06/18/24 09:19
Magnesium 2.3 mg/dl (1.6-2.3) 06/18/24 02:29
06/15/24
17:02
Fcx-A-Kyukntrjfel Pept 922
LAB Results
06/15/24 06/15/24 06/16/24
19:07 21:20 01:
Troponin I 1.110 H* 0.802 H* D 1.770 H* D
06/16/24 06/16/24
06:42 15:05
Troponin I 8.190 H* D 7.100 H*
Physical Exam
Constitutional: No acute distress and Comfortable
EENT: Anicteric and Moist mucous membranes
Cardiovascular: Rhythm & rate is regular, Pedal edema is absent, JVD present and Systolic murmur present
Respiratory: Respiratory effort normal and Crackles Present
GI: Soft, Non tender and Normal bowel sounds
Neuro/Psych: Alert, Oriented, AO x 3 and Motor deficits absent
Data Reviewed
-
Date of Service: June 18, 2024
Medical Decision Making: Reviewed Test Results, Test Interpretation and Review of Case with other Provider
EKG: Tracing Personally Visualized and interpreted
Echo: Report Reviewed by me
Labs: Labs Reviewed by me
Old Records: Reviewed
--- NOTE | 2024-06-18 12:37 | PN.CDI ---
CDI
- -
CDI:
Physician Documentation Request
Admit Date: 06/15/24 22:33
Dear Doctor Truman,
Patient admitted for multifocal pneumonia 06/15.
06/17 hospitalist progress note contains a diagnosis of sepsis.
Patient had remained afebrile.
06/15 HR ranged 87-116,
Presenting respiratory rates 18-40
Laboratory Tests
06/15/24 06/16/24 06/17/24
17:02 06:42 04:28
WBC 9.4 9.7 15.1 H
06/18/24
02:
WBC 18.8 H
Please clarify the following:
Sepsis was present on admission
Sepsis was not present on admission
Unable to determine
Use of terms such as suspected, likely, concern for, or probable (associated with a specific diagnosis that is being evaluated, monitored, or treated as if it exists) are acceptable and can be coded in the inpatient setting, when documented at the
time of discharge.
Thank you,
Mary Sosa RN, BSN
CDI Specialist
tiger text
Please use your independent medical judgment in providing your response.
[2024-06-18] MEDS: LANOXIN 250 MCG PO (12:44)
--- NOTE | 2024-06-18 12:45 | PN.CDI ---
CDI
- -
CDI:
Physician Documentation Request
Admit Date: 06/15/24 22:33
Dear Doctor Truman,
Patient admitted for management of pneumonia.
initial sodium results :
Laboratory Tests
06/15/24 06/16/24
17:02 06:42
Sodium 132 L 136
Could you please provide a diagnosis that supports the above lab abnormalities and additional evaluation/monitoring:
Hyponatremia
Abnormal lab value clinically insignificant
Other
Use of terms such as suspected, likely, concern for, or probable (associated with a specific diagnosis that is being evaluated, monitored, or treated as if it exists) are acceptable and can be coded in the inpatient setting, when documented at the
time of discharge.
Thank you,
Mary Sosa RN, BSN
CDI Specialist
tiger text
Please use your independent medical judgment in providing your response.
[2024-06-18] MEDS: HEPARIN 25000 UNITS/250 ML IV (13:11)
--- NOTE | 2024-06-18 14:44 | W.PN.HOSP.TC ---
Today's Communication/Plan
-
wean o2 as tolerated
xr
hep ggt
dilt PO to transition off of drip
Assessment / Plan
Assessment / Plan
Physical Exam
General: Well Developed, Well Nourished and No Apparent Distress
HEENT: NormoCephalic, Moist mucous membranes and Atraumatic
Respiratory: exp Wheezes
Cardiac: S1/S2 and irregular Rhythm; No Murmur or Rub
GI: Soft, Non Tender, Non Distended and Normal Bowel Sounds; No Organomegaly
Rectal: Deferred by Provider
Musculoskeletal: No Clubbing, No Cyanosis and No Edema
Skin: No Rash
Neuro: Nonfocal/grossly intact
#Acute hypoxic respiratory failure
# Multifocal pneumonia
-CT PE shows confluent parenchymal airspace opacity within both lower lobes likely multifocal pneumonia
-COVID and influenza negative
-Blood cultures pending
-IVF
-Sputum culture
-Vancomycin/cefepime given in ER will switch to ceftriaxone/doxycycline - if wbc continues to trend up will change to zosyn
-strep antigen, Legionella negative;
-MRSA negative
-DuoNebs every 6 hours
-Incentive dinesh
-CXR today
#Sepsis
-Multifocal Pneumonia
-Bacteremia
-Staph aureus in the blood, f/u final cultures
-repeat blood cultures
-cont abx
-MRSA neg
#NSTEMI
-LV ejection fraction is approximately 55%. Apical akinesis/dyskinesis. Severe
basal inferior hypokinesis.
-Hep ggt
-ASA
-Cards consulted
-anticipate LHC once hypoxia improves
#Afib
-hep ggt
-Diltiazem ggt
-Start diltiazem 60mg tid
-dig x 1 then PO
-Toprol 12.mg bid
# Acute kidney injury, resolved
-Continue IV fluids
-Hold lisinopril
#Hyponatremia
-most likely siadh
-monitor
Mild asthma
-Continue albuterol
-Continue montelukast
Essential hypertension
-Continue amlodipine
-Hold lisinopril
Hyperlipidemia
-Continue statin
Skin cancer
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
Depression
-Continue fluoxetine
Chronic back pain
Herniated disc/bulging disc
History of IBS
Eczema
Gout
-Continue allopurinol
Hypothyroidism
-Continue levothyroxine
Full code
DVT prophylaxis�heparin
Regular diet
Total time spent on today's encounter was 51 minutes which included time spent in counseling the patient/family regarding diagnosis and treatment plan as listed above, goals of care, and symptom management. Case was discussed with nursing staff,
specialists, and care coordinators/case management. All labs and imaging personally reviewed by me. Remainder the time spent in detailed review of previous records, lab data, imaging, and other medical provider documentation.
Anticipated Discharge: > 48 hours
Subjective/Interval History
-
Date of Service: June 18, 2024
no acute events
Objective Data
-
Labs:
Laboratory Results
06/18/24 06/18/24 06/18/24
02:29 09:19 16:48
WBC 18.8 H
Hgb 10.4 L
Hct 29.4 L
Plt Count 239 D
APTT 87.0 H 59.9 H Pending
Sodium 134 L
Potassium 3.7
Chloride 103
Carbon Dioxide 20 L
BUN 35 H
Creatinine 1.0
Glucose 108 H
Calcium 8.2 L
Total Bilirubin 0.7
AST 55
ALT 49
Alkaline Phosphatase 117
Vital Signs:
Vital Signs
Temp Pulse Resp BP Pulse Ox
98.2 F 68 20 121/71 93
06/18/24 11:40 06/18/24 12:44 06/18/24 10:12 06/18/24 10:12 06/18/24 10:12
I&O
06/17/24 06/18/24 06/19/24
06:59 06:59 06:59
Intake Total 880 / 880 1220 / 1220
Output Total 450 / 450 950 / 950
Balance 430 / 430 270 / 270
Review of Systems
-
History Source: Patient
All other systems: Not reviewed unless documented
Data Reviewed
-
Diagnostic Radiology: Report Reviewed by me
CT Scan: Report Reviewed by me
Medical Tests (Nuc Med, Echo etc): Report Reviewed by me
Labs: Labs Reviewed by me
[2024-06-18] MEDS: CARDIZEM CD 240 MG PO (15:19)
[2024-06-18 18:59] LABS: APTT 25.4 Sec (23.4-35.0)
--- NOTE | 2024-06-18 19:20 | VATNOTE ---
Called by pt's primary RN to check pt's R arm IV as she stated some swelling noted. Upon assessment, this VAT RN noticed R arm was grossly swollen above and below pt's IV site. Pt had been getting heparin infusion through that IV. Infusion stopped
and IV D/C'd. R arm elevated and it was recommended that ice be applied to R arm. Will continue to monitor.
--- NOTE | 2024-06-18 19:49 | PTCARENOTE ---
Patient IV heparin infiltrated at right INT site, very swollen. IV team notified. Right arm elevated with two pillows and ice pack applied. Report passed to night RN. IV heparin infusing via left FA.
[2024-06-18] MEDS: VIBRAMYCIN 100 MG PO (20:20)
--- NOTE | 2024-06-18 22:25 | PTCARENOTE ---
assumed care of patient. pt sitting in chair with daughter at bedside. IV heparin site had infiltrated, unsure how long patient not getting IV heparin. PTT drawn at 1830, result came back low 25.4, IV heparin increased per protocol. notified [place]
covering CAMPGROUND MANAGER of above. PTT was due for 0120, but changed to 2300 to check sooner. pt aware of above. condom cath #25 fell off, replaced. pt with no complaints of pain. dry cough noted. PRN cough medication given per JUL. pt wanting to sit in
recliner for night as it helps with his breathing. still on 14L MF, 95%, SOB on exertion. call damon within reach, care ongoing.
[2024-06-18 23:30] LABS: APTT 75.8 Sec (23.4-35.0)
[2024-06-19] VITALS (15 sets, daily range): BP systolic 101–143; BP diastolic 44–85
[2024-06-19] MEDS: HEPARIN 25000 UNITS/250 ML IV (01:58)
--- NOTE | 2024-06-19 02:03 | PTCARENOTE ---
pt sitting in recliner, stating that everything/every position he is in is uncomfortable cause he keeps coughing. offered to get patient melatonin to sleep, to help him get back into bed, all declined. pt declining robitussin stating it does not
work and makes his stomach upset. tessalon pearles given in beginning of shift. care ongoing.
[2024-06-19] MEDS: ROCEPHIN 1000 MG IV (05:52)
[2024-06-19] MEDS: STERILE WATER FOR INJECTION 10 ML IV (05:52)
[2024-06-19 06:19] LABS: Hemoglobin 9.4 g/dL (13.0-18.0); Mean Corp Hgb Conc. 34.8 g/dL (33.0-37.0); Mean Corpuscular Hgb 33.9 pg (27.0-31.0); Mean Corpuscular Volume 97.5 fL (80.0-94.0); Mean Platelet Volume 10.6 fL (7.4-10.4); Platelet Count 270 10^3/uL (130-400); Red Blood Cell Count 2.77 10^6/uL (4.70-6.10); Red Cell Dist. Width 13.1 % (11.5-14.5); White Blood Cell Count 18.3 10^3/uL (4.8-10.8)
[2024-06-19 06:21] LABS: APTT 130.5 Sec (23.4-35.0)
[2024-06-19 07:14] LABS: ALT (SGPT) 55 U/L (0-50); AST (SGOT) 49 U/L (17-59); Albumin 2.7 g/dl (3.5-5.0); Alkaline Phosphatase 119 U/L (38-126); Blood Urea Nitrogen 32 mg/dl (9-20); Calcium 7.7 mg/dl (8.4-10.2); Carbon Dioxide 23 mmol/L (22-30); Chloride 102 mmol/L (98-107); Estimated Creatinine Clearance 66 ml/min; Glucose 115 mg/dl (70-99); Sodium 135 mmol/L (135-145); Total Bilirubin 0.9 mg/dl (0.2-1.3); Total Protein 5.4 g/dl (6.3-8.2); eGFR > 60.00
[2024-06-19] MEDS: VIBRAMYCIN 100 MG PO ×2 (09:50→21:38)
[2024-06-19] MEDS: CARDIZEM CD 240 MG PO (09:52)
[2024-06-19] MEDS: LOPRESSOR 12.5 MG PO (09:52)
[2024-06-19] MEDS: ASPIR LOW (ENTERIC COATED) 81 MG PO (09:54)
--- NOTE | 2024-06-19 13:39 | W.PN.CD ---
Today's Communication / Plan
-
Given slow improvement I will add 2.5 days of empiric diuresis
- If he has dramatic improvement in dyspnea/CXR/pBNP we can conclude that part of his symptoms were from heart failure ([id number] would increase)
Continue ASA + Heparin
Stop BB b/c of wheezing
Stop Digoxin to decrease risk of toxicity
Add statin
Anticipate cath prior to discharge if he is in good enough shape
Impression / Plan
-
Background: 79M with hypertension, dyslipidemia, and asthma who presented to the emergency department with hypoxia
Respiratory insufficiency
- Former heavy smoker
- Left lower lobe pneumonia suspected
- Wheezing on exam => will stop BB
- [place]agen zone pBNP of 922
- Will see response to empiric IV Lasix (start today 06/19/2024)
Suspected pneumonia
- On ATBs
Suspected NSTEMI, peak trop 8.2, precipitated by AFib and pneumonia
- Echo with significant wall motion abnormalities suggestive of CAD/AL
- EKG with new anterior T inversions
- ASA
- Hope he will be a candidate for cath prior to discharge
- Check lipids, add statin
- No BB b/c of wheezing
Atrial fibrillation/flutter
- Paroxysmal: Still in sinus
- Stop digoxin to minimize toxicity risk
- Will stop metoprolol (low dose) b/c wheezing
- Anticoagulation: IV heparin, later Eliquis if co-pay acceptable
- [id number] at least 4 (HTN, age2, vascular disease); and if HF confirmed then increase by 1 point
Hypertension => moved amlodipine to dilt (rate control should AFib recur)
Dyslipidemia, still needs lipid panel => ordered
Coronary artery calcifications on CT
Former smoker, continue cessation recommended
RBBB
Subjective:
Still with significant dyspnea
Echo: 1/28/25 - LVEF55%. Apical akinesis/dyskinesis. Severe basal inferior hypo, mild MR, mild-mod TR, est PASP 35-40 mmHg.
Physical Exam
Vital Signs/Labs
Vital Signs
Temp Pulse Resp BP Pulse Ox
98.4 F 62 23 115/57 95
06/19/24 08:35 06/19/24 12:00 06/19/24 12:00 06/19/24 11:27 06/19/24 10:00
06/18/24 06/19/24 06/20/24
06:59 06:59 06:59
Actual Weight 91.2 kg
06/19/24 05:57
06/19/24 05:57
PT 15.5 Sec (11.4-14.6) H 06/15/24 21:09
INR 1.20 06/15/24 21:09
APTT 130.5 Sec (23.4-35.0) H 06/19/24 05:57
Magnesium 2.3 mg/dl (1.6-2.3) 06/18/24 02:29
06/15/24
17:02
Oxx-B-Ysfjbdqcsxm Pept 922
LAB Results
06/16/24
15:05
Troponin I 7.100 H*
Data Reviewed
-
Date of Service: June 19, 2024
[2024-06-19] MEDS: LANOXIN 250 MCG PO (13:41)
--- NOTE | 2024-06-19 13:58 | VATNOTE ---
Right arm heparin drip infiltrate remains unchanged. Ice bag in place. Arm elevated on pillows
[2024-06-19 14:40] LABS: HDL Cholesterol 26 mg/dl; LDL Cholesterol, Calculated 39 mg/dl; Total Cholesterol 85 mg/dl (50-199); Triglyceride 101 mg/dl (10-149); Very Low Density Lipoprotein 20 mg/dl (0-30)
--- NOTE | 2024-06-19 15:20 | W.PN.HOSP.TC ---
Addendum entered and electronically signed by Aj Laughlin MD 06/19/24 17:19:
Sepsis was present on admission
Hyponatremia
Original Note:
Today's Communication/Plan
-
wean o2
stop hep ggt
start eliquis
cardiology trialing lasix
abx
f/u repeat blood cultures
Assessment / Plan
Assessment / Plan
Physical Exam
General: Well Developed, Well Nourished and No Apparent Distress
HEENT: NormoCephalic, Moist mucous membranes and Atraumatic
Respiratory: exp Wheezes, mild - improving
Cardiac: S1/S2 and irregular Rhythm; No Murmur or Rub
GI: Soft, Non Tender, Non Distended and Normal Bowel Sounds; No Organomegaly
Rectal: Deferred by Provider
Musculoskeletal: No Clubbing, No Cyanosis and No Edema
Skin: No Rash
Neuro: Nonfocal/grossly intact
#Acute hypoxic respiratory failure
# Multifocal pneumonia
-CT PE shows confluent parenchymal airspace opacity within both lower lobes likely multifocal pneumonia
-COVID and influenza negative
-Blood cultures pending
-IVF
-Sputum culture
-Vancomycin/cefepime given in ER will switch to ceftriaxone/doxycycline - if wbc continues to trend up will change to zosyn
-strep antigen, Legionella negative;
-MRSA negative
-DuoNebs every 6 hours
-Incentive dinesh
#Sepsis
-Multifocal Pneumonia
-Bacteremia, MSSA
-Staph aureus in the blood, f/u final cultures
-repeat blood cultures
-cont abx
-MRSA neg
-Cont abx
#NSTEMI
-LV ejection fraction is approximately 55%. Apical akinesis/dyskinesis. Severe
basal inferior hypokinesis.
-Hep ggt - received 48 hours - can stop
-ASA
-Cards consulted
-anticipate LHC once hypoxia improves
#Afib
-switch to eliquis
- diltiazem 60mg tid
Stop BB b/c of wheezing
Stop Digoxin to decrease risk of toxicity
# Acute kidney injury, resolved
-Continue IV fluids
-Hold lisinopril
#Hyponatremia
-most likely siadh
-monitor
Mild asthma
-Continue albuterol
-Continue montelukast
Essential hypertension
-Continue amlodipine
-Hold lisinopril
Hyperlipidemia
-Continue statin
Skin cancer
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
Depression
-Continue fluoxetine
Chronic back pain
Herniated disc/bulging disc
History of IBS
Eczema
Gout
-Continue allopurinol
Hypothyroidism
-Continue levothyroxine
Full code
DVT prophylaxis�heparin
Regular diet
Total time spent on today's encounter was 53 minutes which included time spent in counseling the patient/family regarding diagnosis and treatment plan as listed above, goals of care, and symptom management. Case was discussed with nursing staff,
specialists, and care coordinators/case management. All labs and imaging personally reviewed by me. Remainder the time spent in detailed review of previous records, lab data, imaging, and other medical provider documentation.
Anticipated Discharge: > 48 hours
Subjective/Interval History
-
Date of Service: June 19, 2024
bruising at hep site
Objective Data
-
Labs:
Laboratory Results
06/19/24 06/19/24
05:57 12:35
WBC 18.3 H
Hgb 9.4 L
Hct 27.0 L
Plt Count 270
APTT 130.5 H Pending
Sodium 135
Potassium 4.0
Chloride 102
Carbon Dioxide 23
BUN 32 H
Creatinine 0.9
Glucose 115 H
Calcium 7.7 L
Total Bilirubin 0.9
AST 49
ALT 55 H
Alkaline Phosphatase 119
Vital Signs:
Vital Signs
Temp Pulse Resp BP Pulse Ox
98.4 F 64 23 115/57 95
06/19/24 08:35 06/19/24 13:41 06/19/24 12:00 06/19/24 11:27 06/19/24 10:00
I&O
06/18/24 06/19/24 06/20/24
06:59 06:59 06:59
Intake Total 1220 / 1220 1215 / 1215 1005 / 1005
Output Total 950 / 950 1050 / 1050 980 / 980
Balance 270 / 270 165 / 165
Review of Systems
-
History Source: Patient
All other systems: Not reviewed unless documented
Data Reviewed
-
Diagnostic Radiology: Report Reviewed by me
CT Scan: Report Reviewed by me
Medical Tests (Nuc Med, Echo etc): Report Reviewed by me
Labs: Labs Reviewed by me
--- NOTE | 2024-06-19 15:47 | CM ---
Patient with Dx PNA, Afib, MO. O2 12L. Receiving IV Abx, IV Lasix, started on Eliquis. Per nurse assessment; forgetful, weak gait transfers, activity OOB chair with RW.
Message to Dr Laughlin: Please order PT Eval for him, he has a flight of inside stairs to get into his condo & is using a RW now here.
Plan watch for home O2 needs.
Plan follow up after seen by PT/OT.
[2024-06-19] MEDS: ELIQUIS 5 MG PO (16:25)
[2024-06-19] MEDS: LASIX 40 MG IV (16:26)
[2024-06-19] MEDS: TESSALON PERLES 200 MG PO (16:26)
[2024-06-19] MEDS: LIPITOR 40 MG PO (16:26)
[2024-06-19] MEDS: FLUSH (NSS) 1 FLUSH IV (16:27)
--- NOTE | 2024-06-19 17:00 | PTCARENOTE ---
IV heparin drip discontinued and eliquis 5 mg given as per MD order. Patient o2 weaned down to 11 L midflow. Lungs coarse with non-productive moist cough. Patient out of bed to chair with assistance x1. VS stable, afebrile. SR on monitor.
[2024-06-19] MEDS: TYLENOL 650 MG PO (23:16)
--- NOTE | 2024-06-19 23:50 | PTCARENOTE ---
Pt c/o 6/10 chest pain which he describes as tightness and pressure 'as if something is sitting on (his) chest'. Repeat EKG completed. Pt also is c/o bilateral 8/10 leg pain he describes as 'pulled muscles' PRN Tylenol admin. He has +2 nonpitting
lower extremity edema. Pt stated they look more swollen compared to earlier in the day. Pt is aaox3, nondiaphoretic. Pt is orthopnic and is sitting on side of bed. Notified SHARRI James. CLOTH BOOKER came and assessed pt at bedside. Rx received for Ultram (see
JUL). Notified RT and pt recieved PRN neb tx. Pt stated that the pressure in his chest has improved after tx.
[2024-06-20] VITALS (13 sets, daily range): BP systolic 80–138; BP diastolic 50–103; PULSE 82; O2SAT 89–92; BMI 29.9
[2024-06-20] MEDS: ULTRAM 25 MG PO (00:05)
[2024-06-20] MEDS: DUONEB 3 ML INH (00:05)
[2024-06-20] MEDS: ROBITUSSIN DM 10 ML PO (00:05)
[2024-06-20] MEDS: ROCEPHIN 1000 MG IV (05:09)
[2024-06-20] MEDS: STERILE WATER FOR INJECTION 10 ML IV (05:09)
[2024-06-20 05:12] LABS: Hematocrit 26.3 % (39.0-52.0); Hemoglobin 9.5 g/dL (13.0-18.0); Mean Corp Hgb Conc. 36.1 g/dL (33.0-37.0); Mean Corpuscular Hgb 35.1 pg (27.0-31.0); Mean Platelet Volume 10.7 fL (7.4-10.4); Platelet Count 288 10^3/uL (130-400); Red Blood Cell Count 2.71 10^6/uL (4.70-6.10); Red Cell Dist. Width 13.2 % (11.5-14.5); White Blood Cell Count 16.7 10^3/uL (4.8-10.8)
[2024-06-20 05:31] LABS: ALT (SGPT) 58 U/L (0-50); AST (SGOT) 42 U/L (17-59); Albumin 2.7 g/dl (3.5-5.0); Alkaline Phosphatase 121 U/L (38-126); Blood Urea Nitrogen 37 mg/dl (9-20); Calcium 8.4 mg/dl (8.4-10.2); Carbon Dioxide 23 mmol/L (22-30); Chloride 99 mmol/L (98-107); Estimated Creatinine Clearance 54 ml/min; Glucose 125 mg/dl (70-99); Potassium 4.1 mmol/L (3.5-5.1); Sodium 133 mmol/L (135-145); Total Bilirubin 0.9 mg/dl (0.2-1.3); Total Protein 5.3 g/dl (6.3-8.2); eGFR > 60.00
--- NOTE | 2024-06-20 08:40 | PTCARENOTE ---
Patient received from mold shifter. Patient resting comfortably in bed. AAO, VSS. No events noted overnight. Complaints of pain/discomfort in B/L legs, see MAR, and right arm. Right arm with Heparin gtt infiltrate the other day, large bruised
area and edema. Currently on 5L Midflow N/C, will wean as tolerated. No IVF through IV. No tests scheduled at this time. Call damon in reach.
[2024-06-20] MEDS: LASIX 40 MG IV ×2 (08:47→17:04)
[2024-06-20] MEDS: CARDIZEM CD 240 MG PO (08:47)
[2024-06-20] MEDS: ASPIR LOW (ENTERIC COATED) 81 MG PO (08:48)
[2024-06-20] MEDS: BenGay-Like 1 APPLIC TOPICAL ×3 (08:48→20:57)
[2024-06-20] MEDS: ELIQUIS 5 MG PO ×2 (08:48→20:56)
[2024-06-20] MEDS: VIBRAMYCIN 100 MG PO (08:48)
--- NOTE | 2024-06-20 10:08 | W.PN.CD ---
Today's Communication / Plan
-
- Continue antibiotics as per primary team.
- Continue Lasix 40 mg IV BID.
- Possible diagnostic cardiac catheterization prior to discharge; otherwise, could perform stress test prior to discharge (patient has not had anginal symptoms).
Impression / Plan
-
Background: 79M with hypertension, dyslipidemia, and asthma who presented to the emergency department with hypoxia
Respiratory insufficiency/PNA
- Former heavy smoker
- Left lower lobe pneumonia suspected
- Continue antibiotics as per primary team.
Acute HFpEF:
- Continue Lasix 40 mg IV BID.
Suspected NSTEMI, peak trop 8.2, precipitated by AFib and pneumonia
- Echo with significant wall motion abnormalities suggestive of CAD/NE
- EKG with new anterior T inversions
- Continue ASA
- Possible diagnostic cardiac catheterization prior to discharge; otherwise, could perform stress test prior to discharge (patient has not had anginal symptoms).
- Continue atorvastatin.
- No BB secondary to wheezing.
Atrial fibrillation/flutter
- Paroxysmal: Still in sinus
- Stopped digoxin to minimize toxicity risk
- Metoprolol tartrate discontinued secondary to wheezing.
- Anticoagulation: Continue IV heparin for now; transition to NOAC prior to discharge.
- [id number] at least 4 (HTN, age2, vascular disease); and if HF confirmed then increase by 1 point
Hypertension:
-Fairly controlled.
-Continue current dose of Cardizem CD.
-Continue Lasix as above.
Dyslipidemia:
-Cholesterol is well-controlled (LDL 39).
-Continue atorvastatin 40 mg daily.
Coronary artery calcifications on CT:
-Likely has underlying CAD.
-Plan as above.
Former smoker:
-Continued cessation recommended.
RBBB:
-Chronic; stable.
Subjective:
No major events overnight. Dyspnea improving slowly.
Echo: 06/16/24 - LVEF55%. Apical akinesis/dyskinesis. Severe basal inferior hypo, mild MR, mild-mod TR, est PASP 35-40 mmHg.
Physical Exam
Vital Signs/Labs
Vital Signs
Temp Pulse Resp BP Pulse Ox
97.6 F 71 17 129/66 96
06/20/24 04:01 06/20/24 08:47 06/20/24 08:00 06/20/24 08:47 06/20/24 09:08
06/19/24 06/20/24 06/21/24
06:59 06:59 06:59
Actual Weight 94.5 kg
06/20/24 04:45
06/20/24 04:45
PT 15.5 Sec (11.4-14.6) H 06/15/24 21:09
INR 1.20 06/15/24 21:09
APTT Cancelled 06/19/24 12:35
Magnesium 2.3 mg/dl (1.6-2.3) 06/18/24 02:29
Triglycerides 101 mg/dl (10-149) 06/19/24 05:57
LDL Cholesterol, Calc 39 mg/dl 06/19/24 05:57
VLDL Cholesterol, Calc 20 mg/dl (0-30) 06/19/24 05:57
HDL Cholesterol 26 mg/dl 06/19/24 05:57
06/15/24
17:02
Mht-X-Ijlylaskafg Pept 922
Physical Exam
Constitutional: No acute distress and Comfortable
EENT: Anicteric
Cardiovascular: Rhythm & rate is regular, Systolic murmur absent, Pedal edema present (Trace) and S1S2 is normal
Respiratory: Respiratory effort normal, Wheeze Absent and Crackles Present
GI: Soft
Neuro/Psych: AO x 3
Other: Skin (Warm, dry)
Data Reviewed
-
Date of Service: June 20, 2024
EKG: Tracing Personally Visualized and interpreted (Telemetry: Sinus rhythm)
Labs: Labs Reviewed by me
--- NOTE | 2024-06-20 11:05 | CON.ID ---
Consultation
-
Date/Time Consultation Requested: 06/20/24 8:09
Date/Time Consultation Performed: 06/20/24 11:21
Requesting Provider: Dr Laughlin
Performing Provider: Dr Joel
Reason for Consultation: upper respiratory symptoms
Chief Complaint / Past History
Chief Complaint
MSSA pneumonia, bacteremia
History of Present Illness
Mr Landa is an 79 year old male with history of CVA with residual balance difficulty, who presented here 06/15 from PCP office where he was found to be hypoxemic and with labored breathing. He was complaining of respiratory symptoms first nasal
congestion, rhinorrhea and watery eyes two weeks before, saw PCP treated symptomatically, then after a week progressing to cough, shortness of breath, fever, chills, sore throat, nausea, vomiting without abdominal pain revisited PCP who noted the
hypoxemia and dyspnea and referred him to the ER. Of note daughter and her family recently diagnosed with influenza.
Since arrival here he has been afebrile, bp overall stable, on arrival requiring 15L NC now down to 5L, wbc on arrival 9.7 peaked at 18.8 and today 16.7, hgb 9.5, plt 288, no recent differential and not needed from my perspective, cr 1.1, covid ag
negative, influenza pcr negative 06.15, blood cultures x2 on 06/15 MSSA, 06/15 resp culture - contaminated, single repeat blood culture done 06/17 no growth at 48 hours, 06/16 LVEF 55% and apical dyskinesis, no evidence of vegetation, 06/19 CXR: probable
LLL pneumonia, 06/15 CTA chest: no PE, multifocal pneumonia on admission was started on vancomycin cefepime, then switched to ceftriaxone/doxycycline which he currently remains on these. ID is consulted for assistance with management. No changes
in vision or new back pain
Past History
Additional Past Medical History:
hypertension, hyperlipidemia, mild asthma, skin cancer, CVA balance difficulty on right side, depression, back pain, herniated disc/bulging disc, IBS, eczema
Additional Past Surgical History:
Cholecystectomy, Orthopedic (Bilateral knee surgery) and Tonsilectomy
Allergy History:
No Known Allergies Allergy (Verified 06/15/24 16:44)
Medications Reviewed: Yes
Social History
Tobacco: Non-Smoker
Alcohol: Former
Drug: None
Family History
Family History: Not Pertinent
Review of Systems
Review of Systems
General: Fever and Chills
All systems: All other systems were reviewed and were negative
Vital Signs
Temp Pulse Resp BP Pulse Ox
97.4 F 71 17 129/66 96
06/20/24 07:40 06/20/24 08:47 06/20/24 08:00 06/20/24 08:47 06/20/24 09:08
Physical Exam
Physical Exam
Constitutional: Chronically Ill
Cardiovascular: Regular Rate and S1/S2; Negative Murmur or Rub
Pulmonary: Clear and Symmetric; Negative Wheezes, Rales or Rhonchi
Gastrointestinal: Soft, Non Tender, Non Distended and Normal Bowel Sounds
Extremities: Other (no osler nodes); Negative Splinter Hemorrhage or Janeway Lesions
Skin: Warm and Dry; Negative Rash or Jaundice
Lab / Diagnostic Study Results
06/20/24 04:45
06/20/24 04:45
Abs Immat Gran (auto) 0.0 10^3/uL (0-0.05) 06/15/24 17:02
Absolute Neuts (auto) 7.5 10^3/uL (1.4-6.5) H 06/15/24 17:02
Absolute Lymphs (auto) 0.9 10^3/uL (1.2-3.4) L 06/15/24 17:02
Absolute Monos (auto) 0.9 10^3/uL (0.1-0.6) H 06/15/24 17:02
Absolute Basos (auto) 0.0 10^3/uL (0-0.2) 06/15/24 17:02
Total Counted 100 06/16/24 06:42
Immature Gran % 0.2 % (0-0.5) 06/15/24 17:02
Neutrophils % 79.9 % (42.2-75.2) H 06/15/24 17:02
Lymphocytes % 9.7 % (20.5-51.1) L 06/15/24 17:02
Monocytes % 10.0 % (1.7-9.3) H 06/15/24 17:02
Eosinophils % 0.0 % (0-6) 06/15/24 17:02
Basophils % 0.2 % (0-2) 06/15/24 17:02
Abs Neuts (Manual) 8.4 10^3/uL (1.4-6.5) H 06/16/24 06:42
Segmented Neutrophils 56 % (42-75) 06/16/24 06:42
Band Neutrophils 31 % (0-3) H 06/16/24 06:42
Lymphocytes (Manual) 5 % (20-51) L 06/16/24 06:42
PT 15.5 Sec (11.4-14.6) H 06/15/24 21:09
INR 1.20 06/15/24 21:09
Microbiology Results
Micro:
06/17/24 16:02 Blood Culture - Preliminary
Blood/Venous No Growth in 48 hours- Final report to follow
06/15/24 21:09 Blood Culture - Preliminary
Blood/Venous S aureus-Methicillin Sensitive
Gram Stain - Preliminary
06/15/24 21:09 Blood Culture - Final
Blood/Venous S aureus-Methicillin Sensitive
Gram Stain - Final
06/16/24 21:49 Nasal Screen MRSA (PCR) - Final
Nose MRSA not detected - performed by PCR methodology.
06/15/24 23:06 MRSA Screen - Final
Nose No Methicillin Resistant Staphylococcus aureus isolated.
06/15/24 23:06 Respiratory Culture - Final
Sputum Gram Stain - Final
06/15/24 23:06 Legionella Urinary Antigen - Final
Urine Negative for Legionella pneumophila Serogroup 1 antigen.
A negative result does not rule out the possiblity of
Legionella infection due to other serogroups or species of
Legionella. Clinical correlation is recommended.
Streptococcus pneumoniae Antigen (M - Final
Negative for Streptococcus pneumoniae antigen.
A negative result does not exclude infection with
Streptococcus pneumoniae. Clinical correlation is
recommended.
06/15/24 17:02 Influenza Types A & B (DEMETRIA) - Final
Nasal Swab Negative for Influenza A & B, NAAT
Negative results must be combined with clinical observations
and patient history.
Nucleic Acid Amplification test (NAAT)performed on the
[employer] platform.
Blood Culture Final 06/18/24-828
Positive for S aureus-Methicillin Sensitive.
Performed by PCR methodology.
Organism 1 S aureus-Methicillin Sensitive
1. S aureus-Methicillin Sensitive
M.I.C. RX
--------- ---
Amoxicillin/Potas. Clavulanate <=4/2 S
Ampicillin <=2 R
Clindamycin <=0.5 R
This isolate is presumed to be resistant based on the
detection of inducible clindamycin resistance. Clindamycin
may still be effective in some patients.
Gentamicin <=4 S
Erythromycin >4 R
Levofloxacin <=1 S
Oxacillin <=0.25 S
Tetracycline <=4 S
Trimethoprim/Sulfamethoxazole <=0.5/9.5 S
Vancomycin 1 S
Assessment / Plan
Probable MSSA Pneumonia
MSSA Bacteremia
Acute HRpER
NSTEMI
Bilateral knee surgery
- complaining of orthopnea - on lasix
- suspect patient initially had influenza along with his daughter, note that Flu ag testing is 50-70% sensitive and frequently used outpatient; MSSA pneumonia in the weeks after influenza infection commonly reported
- repeat a second set of blood cultures today, along with the set from 06/17, these two sets together will confirm clearance of bacteremia
- recommend MAYRA when feasible, along with blood cultures, will assist with duration of therapy; TTE with regional wall motion abnormalities, no valvular vegetations
- day 6 of effective rx, repeat sputum culture at this point would be low yield
- will need at least two weeks of IV therapy - possibly longer pending above workup
- start cefazolin 2 gm IV q8hrs
- possible midline placement saturday
[2024-06-20] MEDS: ANCEF 10 IV ×2 (13:24→20:56)
[2024-06-20] MEDS: BenGay-Like TOPICAL ×2 (13:24→18:33)
--- NOTE | 2024-06-20 13:43 | VATNOTE ---
Right arm heparin infiltrate reassessed. Remains unchanged. Ice pack reapplied and encouraged arm elevation as much as possible.
[2024-06-20] MEDS: TESSALON PERLES 200 MG PO (14:18)
--- NOTE | 2024-06-20 14:57 | W.PN.HOSP.TC ---
Today's Communication/Plan
-
switch to cefazolin
MAYRA by cards
Repeat blood cultures
iv lasix
lhc v stress test prior to dc
wean o2 as tolerated
av anand blockade
Assessment / Plan
Assessment / Plan
Physical Exam
General: Well Developed, Well Nourished and No Apparent Distress
HEENT: NormoCephalic, Moist mucous membranes and Atraumatic
Respiratory: exp Wheezes, mild - improving
Cardiac: S1/S2 and irregular Rhythm; No Murmur or Rub
GI: Soft, Non Tender, Non Distended and Normal Bowel Sounds; No Organomegaly
Rectal: Deferred by Provider
Musculoskeletal: No Clubbing, No Cyanosis and No Edema
Skin: No Rash
Neuro: Nonfocal/grossly intact
#Acute hypoxic respiratory failure
# Multifocal pneumonia, MSSA
-CT PE shows confluent parenchymal airspace opacity within both lower lobes likely multifocal pneumonia
-COVID and influenza negative
-Blood cultures pending
-IVF
-Sputum culture
-Vancomycin/cefepime given -> ceftriaxone/doxycycline switch to Cefazoling for Confirmed MSSA
-strep antigen, Legionella negative;
-MRSA negative
-DuoNebs every 6 hours
-Incentive dinesh
#Sepsis
-Multifocal Pneumonia, MSSA
-Bacteremia, MSSA
-Staph aureus in the blood, f/u final cultures
-repeat blood cultures - ngtd; repeat
-cont abx - cephazolin
-MRSA neg
-Cont abx
-Will need MAYRA when feasbile
#NSTEMI
-LV ejection fraction is approximately 55%. Apical akinesis/dyskinesis. Severe
basal inferior hypokinesis.
-Hep ggt - received 48 hours - can stop
-ASA
-Cards consulted
-anticipate LHC once hypoxia improves
#Afib
-switch to eliquis
- diltiazem 60mg tid
Stop BB b/c of wheezing
Stop Digoxin to decrease risk of toxicity
#Acute HFpEF
-cont diuresis fornow
# Acute kidney injury, resolved
-Continue IV fluids
-Hold lisinopril
#Hyponatremia
-most likely siadh
-monitor
Mild asthma
-Continue albuterol
-Continue montelukast
Essential hypertension
-Continue amlodipine
-Hold lisinopril
Hyperlipidemia
-Continue statin
Skin cancer
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
Depression
-Continue fluoxetine
Chronic back pain
Herniated disc/bulging disc
History of IBS
Eczema
Gout
-Continue allopurinol
Hypothyroidism
-Continue levothyroxine
Full code
DVT prophylaxis�heparin
Regular diet
Total time spent on today's encounter was 55 minutes which included time spent in counseling the patient/family regarding diagnosis and treatment plan as listed above, goals of care, and symptom management. Case was discussed with nursing staff,
specialists, and care coordinators/case management. All labs and imaging personally reviewed by me. Remainder the time spent in detailed review of previous records, lab data, imaging, and other medical provider documentation.
Anticipated Discharge: > 48 hours
Subjective/Interval History
-
Date of Service: June 20, 2024
o2 improved
Objective Data
-
Labs:
Laboratory Results
06/20/24
04:45
WBC 16.7 H
Hgb 9.5 L
Hct 26.3 L
Plt Count 288
Sodium 133 L
Potassium 4.1
Chloride 99
Carbon Dioxide 23
BUN 37 H
Creatinine 1.1
Glucose 125 H
Calcium 8.4
Total Bilirubin 0.9
AST 42
ALT 58 H
Alkaline Phosphatase 121
Vital Signs:
Vital Signs
Temp Pulse Resp BP Pulse Ox
97.4 F 71 17 129/66 96
06/20/24 07:40 06/20/24 08:47 06/20/24 08:00 06/20/24 08:47 06/20/24 09:08
I&O
06/19/24 06/20/24 06/21/24
06:59 06:59 06:59
Intake Total 1215 / 1215 2320 / 2320 360 / 360
Output Total 1050 / 1050 1500 / 1500 750 / 750
Balance 165 / 165 820 / 820 -390 / -390
Review of Systems
-
History Source: Patient
All other systems: Not reviewed unless documented
Data Reviewed
-
Diagnostic Radiology: Report Reviewed by me
CT Scan: Report Reviewed by me
Medical Tests (Nuc Med, Echo etc): Report Reviewed by me
Labs: Labs Reviewed by me
[2024-06-20] MEDS: LIPITOR 40 MG PO (17:05)
--- NOTE | 2024-06-20 20:00 | PTCARENOTE ---
Received pt from day shift RN. Pt aaox3, sitting in the chair with chair alarm on. Daughter at bedside. NSR on monitor. 96% on 4L NC. Rt arm heparin infiltrate remains swollen and ecchymotic. Elevated right arm on pillows and ice placed on arm PRN.
Pt resting in bed with call damon in reach.
[2024-06-21] VITALS (12 sets, daily range): BP systolic 103–145; BP diastolic 54–108
[2024-06-21] MEDS: ANCEF 10 IV ×3 (04:48→20:13)
[2024-06-21 05:52] LABS: Hematocrit 22.4 % (39.0-52.0); Hemoglobin 7.8 g/dL (13.0-18.0); Mean Corp Hgb Conc. 34.8 g/dL (33.0-37.0); Mean Corpuscular Hgb 33.3 pg (27.0-31.0); Mean Corpuscular Volume 95.7 fL (80.0-94.0); Mean Platelet Volume 10.9 fL (7.4-10.4); Platelet Count 337 10^3/uL (130-400); Red Blood Cell Count 2.34 10^6/uL (4.70-6.10); Red Cell Dist. Width 13.2 % (11.5-14.5)
[2024-06-21] MEDS: ROBITUSSIN DM 10 ML PO (06:13)
[2024-06-21] MEDS: TESSALON PERLES 200 MG PO (06:13)
[2024-06-21 06:27] LABS: ALT (SGPT) 53 U/L (0-50); AST (SGOT) 43 U/L (17-59); Albumin 3.5 g/dl (3.5-5.0); Alkaline Phosphatase 129 U/L (38-126); Blood Urea Nitrogen 37 mg/dl (9-20); Calcium 8.6 mg/dl (8.4-10.2); Carbon Dioxide 24 mmol/L (22-30); Chloride 99 mmol/L (98-107); Estimated Creatinine Clearance 54 ml/min; Glucose 122 mg/dl (70-99); Potassium 3.8 mmol/L (3.5-5.1); Sodium 135 mmol/L (135-145); Total Bilirubin 0.8 mg/dl (0.2-1.3); Total Protein 6.7 g/dl (6.3-8.2); eGFR > 60.00
[2024-06-21] MEDS: CARDIZEM CD 240 MG PO (08:17)
[2024-06-21] MEDS: ELIQUIS 5 MG PO ×2 (08:17→20:13)
[2024-06-21] MEDS: ASPIR LOW (ENTERIC COATED) 81 MG PO (08:17)
[2024-06-21] MEDS: BenGay-Like 1 APPLIC TOPICAL ×2 (08:18→20:13)
[2024-06-21] MEDS: LASIX 40 MG IV ×2 (08:18→16:00)
--- NOTE | 2024-06-21 11:06 | CM ---
Chart reviewed and physical therapy are recommending skilled placement, options reviewed with patient and he has selected [facility], and [facility]], bilingual patient support caseworker reached out to patient's daughter Neva as requested by patient and patient's daughter,
Neva has selected [facility] as 1st choice.
Plan; Skilled placement at [facility] when patient is medically stable.
[2024-06-21] MEDS: BenGay-Like TOPICAL ×2 (12:01→17:38)
--- NOTE | 2024-06-21 12:17 | W.PN.ID1 ---
Date of Service
Date of Service: June 21, 2024
Today's Communication
- recommend MAYRA when feasible, along with blood cultures, will assist with duration of therapy; TTE with regional wall motion abnormalities, no valvular vegetations
- will need at least two weeks of IV therapy - possibly longer pending above workup
- start cefazolin 2 gm IV q8hrs, day 7 of effective rx
Assessment / Plan
Probable MSSA Pneumonia
MSSA Bacteremia
Acute HRpER
NSTEMI
Bilateral knee surgery
- complaining of orthopnea - on lasix
- suspect patient initially had influenza along with his daughter, note that Flu ag testing is 50-70% sensitive and frequently used outpatient; MSSA pneumonia in the weeks after influenza infection commonly reported
- repeat a second set of blood cultures today, along with the set from 06/17, these two sets together will confirm clearance of bacteremia
- recommend MAYRA when feasible, along with blood cultures, will assist with duration of therapy; TTE with regional wall motion abnormalities, no valvular vegetations
- will need at least two weeks of IV therapy - possibly longer pending above workup
- start cefazolin 2 gm IV q8hrs, day 7 of effective rx
- possible midline placement saturday
Chief Complaint
-: Pneumonia and Bacteremia
Subjective / Review of Systems
afebrile
bp stable
on midflow NC at 4L
right arm heparin site swollen
Vital Signs / Physical Exam
Vital Signs
Vital Signs
Temp Pulse Resp BP Pulse Ox
97.8 F 85 15 134/63 93
06/21/24 07:58 06/21/24 10:00 06/21/24 10:00 06/21/24 10:06/21/24 11:49
Physical Exam
Constitutional: No Acute Distress
Cardiovascular: Regular Rate and S1/S2; Negative Murmur or Rub
Pulmonary: Clear and Symmetric; Negative Wheezes or Rales
Gastrointestinal: Soft, Non Tender, Non Distended and Normal Bowel Sounds
Extremities: Other (bilateral knees, no erythema, warmth, swelling or tenderness)
Skin: Warm and Dry; Negative Rash or Jaundice
Objective Data
Lab Data
Lab Results
06/21/24 05:44
06/21/24 05:42
PT 15.5 Sec (11.4-14.6) H 06/15/24 21:09
INR 1.20 06/15/24 21:09
APTT Cancelled 06/19/24 12:35
Estimated Creat Clear 54 ml/min 06/21/24 05:42
Total Bilirubin 0.8 mg/dl (0.2-1.3) 06/21/24 05:42
AST 43 U/L (17-59) 06/21/24 05:42
ALT 53 U/L (0-50) H 06/21/24 05:42
Alkaline Phosphatase 129 U/L (38-126) H 06/21/24 05:42
Most recent labs reviewed.
Micro Results:
06/17/24 16:02 Blood Culture - Preliminary
Blood/Venous No Growth in 72 hours- Final report to follow
06/20/24 13:03 Blood Culture - Pending
Blood/Venous
06/15/24 21:09 Blood Culture - Preliminary
Blood/Venous S aureus-Methicillin Sensitive
Gram Stain - Preliminary
06/15/24 21:09 Blood Culture - Final
Blood/Venous S aureus-Methicillin Sensitive
Gram Stain - Final
06/16/24 21:49 Nasal Screen MRSA (PCR) - Final
Nose MRSA not detected - performed by PCR methodology.
06/15/24 23:06 MRSA Screen - Final
Nose No Methicillin Resistant Staphylococcus aureus isolated.
06/15/24 23:06 Respiratory Culture - Final
Sputum Gram Stain - Final
06/15/24 23:06 Legionella Urinary Antigen - Final
Urine Negative for Legionella pneumophila Serogroup 1 antigen.
A negative result does not rule out the possiblity of
Legionella infection due to other serogroups or species of
Legionella. Clinical correlation is recommended.
Streptococcus pneumoniae Antigen (M - Final
Negative for Streptococcus pneumoniae antigen.
A negative result does not exclude infection with
Streptococcus pneumoniae. Clinical correlation is
recommended.
06/15/24 17:02 Influenza Types A & B (DEMETRIA) - Final
Nasal Swab Negative for Influenza A & B, NAAT
Negative results must be combined with clinical observations
and patient history.
Nucleic Acid Amplification test (NAAT)performed on the
[employer] platform.
--- NOTE | 2024-06-21 14:28 | W.PN.HOSP.TC ---
Today's Communication/Plan
-
abx
lasix
MAYRA and LHC v Stress test when feasible
Anemia work up
Eliquis
wean o2
Assessment / Plan
Assessment / Plan
Physical Exam
General: Well Developed, Well Nourished and No Apparent Distress
HEENT: NormoCephalic, Moist mucous membranes and Atraumatic
Respiratory: exp Wheezes, mild - improving
Cardiac: S1/S2 and irregular Rhythm; No Murmur or Rub
GI: Soft, Non Tender, Non Distended and Normal Bowel Sounds; No Organomegaly
Rectal: Deferred by Provider
Musculoskeletal: No Clubbing, No Cyanosis and No Edema
Skin: No Rash
Neuro: Nonfocal/grossly intact
#Acute hypoxic respiratory failure
# Multifocal pneumonia, MSSA
-CT PE shows confluent parenchymal airspace opacity within both lower lobes likely multifocal pneumonia
-COVID and influenza negative
-Blood cultures pending
-IVF
-Sputum culture
-Vancomycin/cefepime given -> ceftriaxone/doxycycline switch to Cefazolin for Confirmed MSSA
-strep antigen, Legionella negative;
-MRSA negative
-DuoNebs every 6 hours
-Incentive dinesh
#Sepsis
-Multifocal Pneumonia, MSSA
-Bacteremia, MSSA
-Staph aureus in the blood, f/u final cultures
-repeat blood cultures - ngtd; repeat
-cont abx - cephazolin
-MRSA neg
-Cont abx
-Will need MAYRA when feasbile
#NSTEMI
-LV ejection fraction is approximately 55%. Apical akinesis/dyskinesis. Severe
basal inferior hypokinesis.
-Hep ggt - received 48 hours - can stop
-ASA
-Cards consulted
-anticipate LHC once hypoxia improves
#Afib
-switch to eliquis
- diltiazem 60mg tid
Stop BB b/c of wheezing
Stop Digoxin to decrease risk of toxicity
#Acute HFpEF
-cont diuresis fornow
#Acute Anemia
-no clear source on black stools, has not had scope anytime recently
-f/u anemia panel
# Acute kidney injury, resolved
-Continue IV fluids
-Hold lisinopril
#Hyponatremia
-most likely siadh
-monitor
Mild asthma
-Continue albuterol
-Continue montelukast
Essential hypertension
-Continue amlodipine
-Hold lisinopril
Hyperlipidemia
-Continue statin
Skin cancer
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
Depression
-Continue fluoxetine
Chronic back pain
Herniated disc/bulging disc
History of IBS
Eczema
Gout
-Continue allopurinol
Hypothyroidism
-Continue levothyroxine
Full code
DVT prophylaxis�heparin
Regular diet
Total time spent on today's encounter was 52 minutes which included time spent in counseling the patient/family regarding diagnosis and treatment plan as listed above, goals of care, and symptom management. Case was discussed with nursing staff,
specialists, and care coordinators/case management. All labs and imaging personally reviewed by me. Remainder the time spent in detailed review of previous records, lab data, imaging, and other medical provider documentation.
Anticipated Discharge: > 48 hours
Subjective/Interval History
-
Date of Service: June 21, 2024
Weaning O2
Objective Data
-
Labs:
Laboratory Results
06/21/24 06/21/24
05:42 05:44
WBC 14.0 H
Hgb 7.8 L
Hct 22.4 L
Plt Count 337
Sodium 135
Potassium 3.8
Chloride 99
Carbon Dioxide 24
BUN 37 H
Creatinine 1.1
Glucose 122 H
Calcium 8.6
Total Bilirubin 0.8
AST 43
ALT 53 H
Alkaline Phosphatase 129 H
Vital Signs:
Vital Signs
Temp Pulse Resp BP Pulse Ox
97.8 F 85 15 134/63 93
06/21/24 11:30 06/21/24 10:00 06/21/24 10:00 06/21/24 10:00 06/21/24 11:49
I&O
06/20/24 06/21/24 06/22/24
06:59 06:59 06:59
Intake Total 2320 / 2320 360 / 360
Output Total 1500 / 1500 1130 / 1130 1375 / 1375
Balance 820 / 820 -770 / -770 -1375 / -1375
Review of Systems
-
History Source: Patient
All other systems: Not reviewed unless documented
Data Reviewed
-
Diagnostic Radiology: Report Reviewed by me
CT Scan: Report Reviewed by me
Medical Tests (Nuc Med, Echo etc): Report Reviewed by me
Labs: Labs Reviewed by me
--- NOTE | 2024-06-21 14:47 | W.PN.CD ---
Today's Communication / Plan
-
- Continue antibiotics as per primary team.
- MSSA bacteremia: ID requesting MAYRA--will arrange for tomorrow.
- NPO after midnight.
- Continue Lasix 40 mg IV BID.
- Patient will require at least 2 weeks of antibiotics, per ID.
- Recommend outpatient stress test at some point (patient has not had anginal symptoms)--outpatient follow-up with Cardiology to determine timing.
Impression / Plan
-
Background: 79M with hypertension, dyslipidemia, and asthma who presented to the emergency department with hypoxia
Respiratory insufficiency/PNA
- Former heavy smoker
- Left lower lobe pneumonia suspected
- Continue antibiotics as per primary team.
MSSA bacteremia:
-ID requesting MAYRA--will arrange for tomorrow.
-NPO after midnight.
Acute HFpEF:
-Volume status slowly improving.
- Continue Lasix 40 mg IV BID.
Suspected NSTEMI, peak trop 8.2, precipitated by AFib and pneumonia
- Echo with significant wall motion abnormalities suggestive of CAD/AK
- EKG with new anterior T inversions
- Continue ASA
-Patient will require at least 2 weeks of antibiotics, per ID.
-Recommend outpatient stress test at some point (patient has not had anginal symptoms)--outpatient follow-up with Cardiology to determine timing.
- Continue atorvastatin.
- No BB secondary to wheezing.
Atrial fibrillation/flutter
- Paroxysmal: Still in sinus
- Stopped digoxin to minimize toxicity risk
- Metoprolol tartrate discontinued secondary to wheezing.
- Continue Cardizem CD 240 mg daily
- Anticoagulation: Continue Eliquis.
- [id number] at least 4 (HTN, age2, vascular disease); and if HF confirmed then increase by 1 point
Hypertension:
-Remains fairly controlled.
-Continue current dose of Cardizem CD.
-Continue Lasix as above.
Dyslipidemia:
-Cholesterol is well-controlled (LDL 39).
-Continue atorvastatin 40 mg daily.
Coronary artery calcifications on CT:
-Likely has underlying CAD.
-Plan as above; eventual outpatient stress test.
Former smoker:
-Continued cessation recommended.
RBBB:
-Chronic; stable.
Echo: 06/16/24 - LVEF55%. Apical akinesis/dyskinesis. Severe basal inferior hypo, mild MR, mild-mod TR, est PASP 35-40 mmHg.
Physical Exam
Vital Signs/Labs
Vital Signs
Temp Pulse Resp BP Pulse Ox
97.8 F 85 15 134/63 93
06/21/24 11:30 06/21/24 10:00 06/21/24 10:00 06/21/24 10:00 06/21/24 11:49
06/20/24 06/21/24 06/22/24
06:59 06:59 06:59
Actual Weight 94.5 kg
06/21/24 05:44
06/21/24 05:42
PT 15.5 Sec (11.4-14.6) H 06/15/24 21:09
INR 1.20 06/15/24 21:09
APTT Cancelled 06/19/24 12:35
Magnesium 2.3 mg/dl (1.6-2.3) 06/18/24 02:29
Triglycerides 101 mg/dl (10-149) 06/19/24 05:57
LDL Cholesterol, Calc 39 mg/dl 06/19/24 05:57
VLDL Cholesterol, Calc 20 mg/dl (0-30) 06/19/24 05:57
HDL Cholesterol 26 mg/dl 06/19/24 05:57
06/15/24
17:02
Yax-[id number]-Mspymzyqtdw Pept 922
Physical Exam
Constitutional: No acute distress and Comfortable
EENT: Anicteric
Cardiovascular: Rhythm & rate is regular, Pedal edema present (Trace), Systolic murmur present (05/25) and S1S2 is normal
Respiratory: Respiratory effort normal, Wheeze Absent and Crackles Absent
GI: Soft
Neuro/Psych: AO x 3
Other: Skin (Warm, dry)
Data Reviewed
-
Date of Service: June 21, 2024
EKG: Tracing Personally Visualized and interpreted (Telemetry: Sinus rhythm)
Labs: Labs Reviewed by me
--- NOTE | 2024-06-21 17:33 | PTCARENOTE ---
Pt sat up in chair since lunch time. Pt's daughter at bedside late afternoon and all questions answered per RN ability. Pt's R arm still with ecchymosis and edema. Pt reports some soreness to touch, elevated on pillows. He remains on 4L NC with an
occasional, nonproductive, dry cough. Otherwise pt has no complaints. Assessment, care and VS as charted.
[2024-06-21] MEDS: LIPITOR 40 MG PO (17:39)
--- NOTE | 2024-06-21 19:30 | PTCARENOTE ---
Assumed care of pt at change of shift. Pt aaox3. NSR on monitor. 95% on 4L NC. VSS. Pt resting in chair with chair alarm on and call damon in reach.
[2024-06-21] MEDS: PROZAC 20 MG PO (20:13)
[2024-06-22] VITALS (9 sets, daily range): BP systolic 104–149; BP diastolic 53–129; PULSE 72; O2SAT 95
[2024-06-22] MEDS: ANCEF 10 IV ×3 (03:00→23:17)
[2024-06-22 03:50] LABS: Hematocrit 27.3 % (39.0-52.0); Hemoglobin 9.6 g/dL (13.0-18.0); Mean Corp Hgb Conc. 35.2 g/dL (33.0-37.0); Mean Corpuscular Hgb 33.8 pg (27.0-31.0); Mean Corpuscular Volume 96.1 fL (80.0-94.0); Mean Platelet Volume 10.3 fL (7.4-10.4); Platelet Count 383 10^3/uL (130-400); Red Blood Cell Count 2.84 10^6/uL (4.70-6.10); Red Cell Dist. Width 13.3 % (11.5-14.5); White Blood Cell Count 12.4 10^3/uL (4.8-10.8)
[2024-06-22 03:56] LABS: Blood Urea Nitrogen 33 mg/dl (9-20); Calcium 8.6 mg/dl (8.4-10.2); Carbon Dioxide 31 mmol/L (22-30); Chloride 96 mmol/L (98-107); Estimated Creatinine Clearance 60 ml/min; Glucose 121 mg/dl (70-99); Iron 66 ug/dl (49-181); Potassium 3.8 mmol/L (3.5-5.1); Sodium 135 mmol/L (135-145); eGFR > 60.00
[2024-06-22 04:27] LABS: TSH 2.29 uIU/ml (0.47-4.68)
[2024-06-22 05:03] LABS: Folate 8.5 ng/ml (2.76-20); Vitamin B12 808 pg/ml (239-931)
--- NOTE | 2024-06-22 07:55 | W.PN.HOSP.TC ---
Today's Communication/Plan
-
see A/P
MAYRA today
Assessment / Plan
Assessment / Plan
A/P:
# Acute hypoxic respiratory failure
# Multifocal pneumonia 2/2 MSSA
# Sepsis POA with MSSA bacteremia and Multifocal pneumonia
Currently on 4L NC, wean as tolerated, pt not on home O2
CT PE shows confluent parenchymal airspace opacity within both lower lobes likely multifocal pneumonia
Blood cultures x2 positive for MSSA, repeat blood cultures negative
COVID and influenza negative, strep antigen, Legionella negative; MRSA screen negative
Vancomycin/cefepime -> ceftriaxone/doxycycline -> Cefazolin for confirmed MSSA
TTE with regional wall motion abnormalities, no valvular vegetations
ID recc MAYRA, planned for 2/3
DuoNebs every 6 hours, Incentive dinesh
# NSTEMI
LV ejection fraction approximately 55%. Apical akinesis/dyskinesis. Severe basal inferior hypokinesis.
s/p Hep ggt 48 hours- stopped
ASA
Cards on board, recommend outpatient stress test at some point (patient has not had anginal symptoms), outpatient follow-up with Cardiology to determine timing.
# Paroxysmal Afib
Holding Eliquis for MAYRA
Cont Cardizem 240 mg daily
Off BB 2/2 wheezing
Off Digoxin to decrease risk of toxicity
# Acute HFpEF
s/p Lasix 40 mg IV BID.
# Anemia 2/2 ACD
iron panel reviewed
# Acute kidney injury, resolved
s/p IV fluids
Hold lisinopril
# Hyponatremia, resolved
# Mild asthma
Continue albuterol
Continue montelukast
# Essential hypertension
Continue Cardizem
# Hyperlipidemia
Continue statin
# Skin cancer
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
# Depression
Continue fluoxetine
# Chronic back pain
# Herniated disc/bulging disc
# History of IBS
# Eczema
# Gout
Continue allopurinol
# Hypothyroidism
Continue levothyroxine
Full code
DVT prophylaxis� Eliquis
DW RN
left voice mail to daughter
total time spent 51 min
Anticipated Discharge: > 48 hours
Subjective/Interval History
-
Date of Service: June 22, 2024
Objective Data
-
Labs:
Laboratory Results
06/22/24
03:01
WBC 12.4 H
Hgb 9.6 L D
Hct 27.3 L
Plt Count 383
Sodium 135
Potassium 3.8
Chloride 96 L
Carbon Dioxide 31 H
BUN 33 H
Creatinine 1.0
Glucose 121 H
Calcium 8.6
Vital Signs:
Vital Signs
Temp Pulse Resp BP Pulse Ox
36.8 C 75 17 104/81 94
06/22/24 04:29 06/22/24 06:00 06/22/24 06:00 06/22/24 04:00 06/22/24 06:00
I&O
06/21/24 06/22/24 06/23/24
06:59 06:59 06:59
Intake Total 360 / 360 960 / 960
Output Total 1130 / 1130 1625 / 1625
Balance -770 / -770 -665 / -665
Review of Systems
-
All other systems: Reviewed and negative
Physical Exam
-
General: Well Developed, Well Nourished, Comfortable, Respiratory Distress, Conversant and Appears Chronically Ill
HEENT: Normocephalic, Atraumatic, Nose Appears Normal, Ears Appear Normal and Oxygen (4L NC)
Respiratory: Clear to Auscultation and Non Labored Respirations; Negative Accessory Resp Muscle Use
Cardiac: Regular Rhythm and S1/S2
GI: Soft, Nontender, Nondistended and Normal Bowel Sounds
Musculoskeletal: Edema, Right Lower Extrem (mild) and Edema, Left Lower Extrem (mild)
Skin: Warm and Dry
Neuro: Awake, Alert and Oriented
Psych: Calm and Intact Judgement/Insight
Data Reviewed
-
Labs: Labs Reviewed by me
[2024-06-22] MEDS: CARDIZEM CD 240 MG PO (08:29)
[2024-06-22] MEDS: BenGay-Like 1 APPLIC TOPICAL ×2 (08:29→17:19)
[2024-06-22] MEDS: ASPIR LOW (ENTERIC COATED) 81 MG PO (08:29)
[2024-06-22] MEDS: PROZAC 20 MG PO ×2 (08:29→21:33)
--- NOTE | 2024-06-22 08:49 | W.PN.CD ---
Today's Communication / Plan
-
MAYRA for workup of MSSA bacteremia
cont. eliquis without interruption
lasix 40 IV bid today then 40 PO tomorrow
Impression / Plan
-
Background: 79M with hypertension, dyslipidemia, and asthma who presented to the emergency department with hypoxia, TTE concerning for endocarditis.
Respiratory insufficiency/PNA
- Former heavy smoker
- Left lower lobe pneumonia suspected
- Continue antibiotics as per primary team.
MSSA bacteremia:
-MAYRA: preliminary report without endocarditis
Acute HFpEF:
-Volume status slowly improving.
-Continue Lasix 40 mg IV BID for 1 more day then convert to lasx 40 PO qD
Suspected NSTEMI, peak trop 8.2, precipitated by AFib and pneumonia
- Echo with significant wall motion abnormalities suggestive of CAD/NC
- EKG with new anterior T inversions
- Continue ASA
-Patient will require at least 2 weeks of antibiotics, per ID.
-Recommend outpatient stress test at some point (patient has not had anginal symptoms)--outpatient follow-up with Cardiology to determine timing. If no severe/acute coronary disesae identified can consider discontinuing asa while on eliquis.
- Continue atorvastatin.
- No BB secondary to wheezing.
Atrial fibrillation/flutter
- Paroxysmal: Still in sinus
- Stopped digoxin to minimize toxicity risk
- Metoprolol tartrate discontinued secondary to wheezing.
- Continue Cardizem CD 240 mg daily
- Anticoagulation: Continue Eliquis.
- [id number] at least 4 (HTN, age2, vascular disease); and if HF confirmed then increase by 1 point
Hypertension:
-Remains fairly controlled.
-Continue current dose of Cardizem CD.
-Continue Lasix as above.
Dyslipidemia:
-Cholesterol is well-controlled (LDL 39).
-Continue atorvastatin 40 mg daily.
Coronary artery calcifications on CT:
-Likely has underlying CAD.
-Plan as above; eventual outpatient stress test.
Former smoker:
-Continued cessation recommended.
RBBB:
-Chronic; stable.
Echo: 06/16/24 - LVEF55%. Apical akinesis/dyskinesis. Severe basal inferior hypo, mild MR, mild-mod TR, est PASP 35-40 mmHg.
Physical Exam
Vital Signs/Labs
Vital Signs
Temp Pulse Resp BP Pulse Ox
36.8 C 67 16 138/61 95
06/22/24 04:29 06/22/24 08:29 06/22/24 08:00 06/22/24 08:29 06/22/24 06:39
06/22/24 03:01
06/22/24 03:01
PT 15.5 Sec (11.4-14.6) H 06/15/24 21:09
INR 1.20 06/15/24 21:09
APTT Cancelled 06/19/24 12:35
Magnesium 2.3 mg/dl (1.6-2.3) 06/18/24 02:29
Triglycerides 101 mg/dl (10-149) 06/19/24 05:57
LDL Cholesterol, Calc 39 mg/dl 06/19/24 05:57
VLDL Cholesterol, Calc 20 mg/dl (0-30) 06/19/24 05:57
HDL Cholesterol 26 mg/dl 06/19/24 05:57
TSH 2.29 uIU/ml (0.47-4.68) 06/22/24 03:01
06/15/24
17:02
Rii-B-Jfjmuovfieg Pept 922
Data Reviewed
-
Date of Service: June 22, 2024
Medical Decision Making: Reviewed Test Results
EKG: Tracing Personally Visualized and interpreted
Echo: Tracing Personally Visualized and interpreted
Labs: Labs Reviewed by me
[2024-06-22] MEDS: BenGay-Like TOPICAL ×3 (12:24→21:39)
[2024-06-22] MEDS: LASIX 40 MG IV ×2 (12:31→17:21)
[2024-06-22] MEDS: LIPITOR 40 MG PO (17:20)
[2024-06-22] MEDS: ANCEF IV (22:36)
[2024-06-23 00:31] VITALS: BP 156/61
[2024-06-23 03:32] VITALS: BP 149/61
[2024-06-23] MEDS: ANCEF 10 IV ×2 (06:08→13:00)
[2024-06-23 06:45] VITALS: BMI 28.0
[2024-06-23 07:00] VITALS: BP 161/66
[2024-06-23 07:55] LABS: Hematocrit 29.1 % (39.0-52.0); Hemoglobin 10.1 g/dL (13.0-18.0); Mean Corp Hgb Conc. 34.7 g/dL (33.0-37.0); Mean Corpuscular Hgb 34.1 pg (27.0-31.0); Mean Corpuscular Volume 98.3 fL (80.0-94.0); Mean Platelet Volume 10.2 fL (7.4-10.4); Platelet Count 421 10^3/uL (130-400); Red Blood Cell Count 2.96 10^6/uL (4.70-6.10); Red Cell Dist. Width 13.7 % (11.5-14.5); White Blood Cell Count 12.8 10^3/uL (4.8-10.8)
[2024-06-23] MEDS: LASIX 40 MG PO (08:29)
[2024-06-23] MEDS: CARDIZEM CD 240 MG PO (08:29)
[2024-06-23] MEDS: ASPIR LOW (ENTERIC COATED) 81 MG PO (08:29)
[2024-06-23] MEDS: PROZAC 20 MG PO (08:29)
[2024-06-23] MEDS: BenGay-Like 1 APPLIC TOPICAL ×2 (08:29→12:59)
--- NOTE | 2024-06-23 08:30 | W.PN.CD ---
Today's Communication / Plan
-
- MAYRA negative for endocarditis yesterday.
- Now transitioned to Lasix 40 mg PO daily, which should be home dose.
- Outpatient stress test at some point (patient has not had anginal symptoms)--outpatient follow-up with Cardiology to determine timing.
- No further cardiac recommendations at this time; outpatient follow-up with Cardiology.
Impression / Plan
-
Background: 79M with hypertension, dyslipidemia, and asthma who presented to the emergency department with hypoxia, TTE concerning for endocarditis.
Respiratory insufficiency/PNA
- Former heavy smoker
- Left lower lobe pneumonia suspected
- Continue antibiotics as per primary team.
MSSA bacteremia:
-MAYRA negative for endocarditis yesterday.
Acute HFpEF:
-Volume status slowly improving.
-Now transitioned to Lasix 40 mg PO daily, which should be home dose.
Suspected NSTEMI, peak trop 8.2, precipitated by AFib and pneumonia
- Echo with significant wall motion abnormalities suggestive of CAD/TN
- EKG with new anterior T inversions
- Continue ASA
- Patient will require at least 2 weeks of antibiotics, per ID.
- Outpatient stress test at some point (patient has not had anginal symptoms)--outpatient follow-up with Cardiology to determine timing.
- Continue atorvastatin.
- No BB secondary to wheezing.
Atrial fibrillation/flutter
- Paroxysmal: Still in sinus
- Stopped digoxin to minimize toxicity risk
- Metoprolol tartrate discontinued secondary to wheezing.
- Continue Cardizem CD 240 mg daily
- Anticoagulation: Continue Eliquis.
- [id number] at least 4 (HTN, age2, vascular disease); and if HF confirmed then increase by 1 point
Hypertension:
-Fairly controlled.
-Continue current dose of Cardizem CD.
-Lasix as above.
Dyslipidemia:
-Cholesterol is well-controlled (LDL 39).
-Continue atorvastatin 40 mg daily.
Coronary artery calcifications on CT:
-Likely has underlying CAD.
-Plan as above; eventual outpatient stress test.
Former smoker:
-Continued cessation recommended.
RBBB:
-Chronic; stable.
Echo: 06/16/24 - LVEF55%. Apical akinesis/dyskinesis. Severe basal inferior hypo, mild MR, mild-mod TR, est PASP 35-40 mmHg.
Physical Exam
Vital Signs/Labs
Vital Signs
Temp Pulse Resp BP Pulse Ox
97.3 F 71 20 161/66 95
06/23/24 07:00 06/23/24 07:00 06/23/24 07:00 06/23/24 07:00 06/23/24 07:00
06/22/24 06/23/24 06/24/24
06:59 06:59 06:59
Actual Weight 88.649 kg
06/23/24 07:32
PT 15.5 Sec (11.4-14.6) H 06/15/24 21:09
INR 1.20 06/15/24 21:09
APTT Cancelled 06/19/24 12:35
Magnesium 2.3 mg/dl (1.6-2.3) 06/18/24 02:29
Triglycerides 101 mg/dl (10-149) 06/19/24 05:57
LDL Cholesterol, Calc 39 mg/dl 06/19/24 05:57
VLDL Cholesterol, Calc 20 mg/dl (0-30) 06/19/24 05:57
HDL Cholesterol 26 mg/dl 06/19/24 05:57
TSH 2.29 uIU/ml (0.47-4.68) 06/22/24 03:01
06/15/24
17:02
Gck-J-Wpyxsxwgjwz Pept 922
Physical Exam
Constitutional: No acute distress and Comfortable
EENT: Anicteric
Cardiovascular: Rhythm & rate is regular, Pedal edema is absent, Systolic murmur present (05/25) and S1S2 is normal
Respiratory: Respiratory effort normal and Rhonchi Present
GI: Soft
Neuro/Psych: AO x 3
Other: Skin (warm)
Data Reviewed
-
Date of Service: June 23, 2024
EKG: Tracing Personally Visualized and interpreted (Sinus rhythm, PVCs)
Labs: Labs Reviewed by me
[2024-06-23 08:37] LABS: Blood Urea Nitrogen 34 mg/dl (9-20); Calcium 8.5 mg/dl (8.4-10.2); Carbon Dioxide 33 mmol/L (22-30); Chloride 94 mmol/L (98-107); Estimated Creatinine Clearance 50 ml/min; Glucose 134 mg/dl (70-99); Magnesium 2.2 mg/dl (1.6-2.3); Potassium 3.8 mmol/L (3.5-5.1); Sodium 137 mmol/L (135-145); eGFR > 60.00
--- NOTE | 2024-06-23 08:54 | W.PN.HOSP.TC ---
Addendum entered and electronically signed by Arelis Manning MD 06/23/24 14:30:
total DC time 40 min
Original Note:
Today's Communication/Plan
-
dispo planning
Assessment / Plan
Assessment / Plan
A/P:
# Acute hypoxic respiratory failure
# Multifocal pneumonia 2/2 MSSA
# Sepsis POA with MSSA bacteremia and Multifocal pneumonia
Currently on 4L NC, wean as tolerated, pt not on home O2
CT PE shows confluent parenchymal airspace opacity within both lower lobes likely multifocal pneumonia
Blood cultures x2 positive for MSSA, repeat blood cultures negative
COVID and influenza negative, strep antigen, Legionella negative; MRSA screen negative
Vancomycin/cefepime -> ceftriaxone/doxycycline -> Cefazolin for confirmed MSSA
TTE with regional wall motion abnormalities, no valvular vegetations
s/p MAYRA 2/3, negative for endocarditis.
ID on board recc Ancef for 2 weeks from negative blood culture
DuoNebs every 6 hours, Incentive dinesh
# NSTEMI
LV ejection fraction approximately 55%. Apical akinesis/dyskinesis. Severe basal inferior hypokinesis.
s/p Hep ggt 48 hours- stopped
ASA
Cards on board, recommend outpatient stress test at some point (patient has not had anginal symptoms), outpatient follow-up with Cardiology to determine timing.
# Paroxysmal Afib
Cont Cardizem 240 mg daily
Off BB 2/2 wheezing
Off Digoxin to decrease risk of toxicity
resumed Eliquis
# Acute HFpEF
s/p Lasix 40 mg IV BID, transitioned to Lasix 40 mg PO daily (home dose going forward)
Outpatient stress test with Card
# Anemia 2/2 ACD
iron panel reviewed
# Acute kidney injury, resolved
s/p IV fluids
Hold lisinopril
# Hyponatremia, resolved
# Mild asthma
Continue albuterol
Continue montelukast
# Essential hypertension
Continue Cardizem
# Hyperlipidemia
Continue statin
# Skin cancer
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
# Depression
Continue fluoxetine
# Chronic back pain
# Herniated disc/bulging disc
# History of IBS
# Eczema
# Gout
Continue allopurinol
# Hypothyroidism
Continue levothyroxine
Full code
DVT prophylaxis� Eliquis
DW RN
DW CM
updated daughter on the phone
total time spent 51 min
Anticipated Discharge: Within 24 hours
Subjective/Interval History
-
Date of Service: June 23, 2024
Objective Data
-
Labs:
Laboratory Results
06/23/24
07:32
WBC 12.8 H
Hgb 10.1 L
Hct 29.1 L
Plt Count 421 H
Sodium 137
Potassium 3.8
Chloride 94 L
Carbon Dioxide 33 H
BUN 34 H
Creatinine 1.2
Glucose 134 H
Calcium 8.5
Vital Signs:
Vital Signs
Temp Pulse Resp BP Pulse Ox
36.3 C 71 20 161/66 95
06/23/24 07:00 06/23/24 07:00 06/23/24 07:00 06/23/24 07:00 06/23/24 07:00
I&O
06/22/24 06/23/24 06/24/24
06:59 06:59 06:59
Intake Total 960 / 960 480 / 480 240 / 240
Output Total 1625 / 1625 575 / 575
Balance -665 / -665 -95 / -95 240 / 240
Review of Systems
-
All other systems: Reviewed and negative
Physical Exam
-
General: Well Developed, Well Nourished, Comfortable, Respiratory Distress (mild) and Conversant
HEENT: Normocephalic, Atraumatic, Nose Appears Normal, Ears Appear Normal and Oxygen (4L NC)
Respiratory: Clear to Auscultation and Non Labored Respirations; Negative Accessory Resp Muscle Use
Cardiac: Regular Rhythm and S1/S2
GI: Soft, Nontender, Nondistended and Normal Bowel Sounds
Musculoskeletal: Edema, Right Lower Extrem (mild) and Edema, Left Lower Extrem (mild)
Skin: Warm and Dry
Neuro: Awake, Alert and Oriented
Psych: Calm and Intact Judgement/Insight
Data Reviewed
-
Labs: Labs Reviewed by me
--- NOTE | 2024-06-23 14:07 | CM ---
Addendum entered by Eri Sargent 06/23/24 14:40:
Patient seen, aware of discharge plan to [facility], 5:00 p.m. ambulance transport. IMM verbally reviewed, agreeable to discharge, provided with copy, placed in chart.
Original Note:
CM reviewed chart, spoke with patients daughter, Neva, agreeable to additional referrals placed to [facility] and Kevin, and Justyn Lenz. Daughter agreeable to [facility], reports her mother toured facility and is agreeable. Phone call
to [employer], auth approved 06/23-06/29, next review 06/29 to [phone], auth #[id number]. Updates to Emelina at [facility]. Patient will require ambulance transport, currently on 4L, new to O2. CM will continue to follow for all discharge planning
needs.
Plan; discharge to [facility], ambulance transport
[facility]:
Report: [phone]
--- NOTE | 2024-06-23 14:13 | W.DCSUMMARY ---
Discharge Summary
Discharge Data
Date of Admission: 06/15/24
Date of Discharge: 06/23/24
-
Pending Results: No
Hospital Course
Principal Diagnosis:
Acute hypoxic respiratory failure due to MSSA multifocal pneumonia
Sepsis due to MSSA bacteremia and multifocal pneumonia
Non-ST elevation myocardial infarction (NSTEMI)
Paroxysmal atrial fibrillation
Acute HFpEF
Acute kidney injury, resolved. Prior to admission lisinopril stopped
Chronic Diagnoses:�
Anemia of chronic disease
Mild asthma
Essential hypertension
Hyperlipidemia
Skin cancer
History of stroke with residual balance difficulty on the right
Depression on Fluoxetine
Chronic back pain
Herniated disc/bulging disc
History of IBS
Eczema
Gout, on allopurinol
Hypothyroidism
Consultations:�
Cardiology
Infectious disease
Procedures:�
None
Clinical course:�
This is a 79-year-old male with past medical history as stated above, who presented with hypoxia.
Problem 1:
Acute hypoxic respiratory failure due to MSSA multifocal pneumonia.
Of note, the patient also had MSSA bacteremia.
His CT PE showed confluent parenchymal airspace opacity within both lower lobes likely multifocal pneumonia
At the time of discharge, he was still requiring 4L nasal cannula which he can continue to wean as tolerated at SNF. He was not on oxygen at home.
His initial blood cultures x2 were positive for MSSA, repeat blood cultures were negative from 06/17/2024.
Following confirmation of MSSA, IV antibiotic was switched to Ancef which he can continue for 2 weeks per ID from date of negative blood culture.
He had both TTE and MAYRA done; both were negative for endocarditis.
Problem 2:
NSTEMI.
His echo showed EF 55%. Apical akinesis/dyskinesis. Severe basal inferior hypokinesis.
He was placed on heparin drip initially for 48 hours, which was subsequently discontinued.
He can continue with aspirin going forward.
He can follow-up with cardiology outpatient for outpatient stress testing.
Problem 3:
Paroxysmal Afib.
He can continue Cardizem 240 mg daily and Eliquis 5 mg twice daily going forward.
Did not tolerate beta-blayne due to wheezing, and off of digoxin to decrease risk of toxicity.
Problem 4:
Acute HFpEF.
He received IV Lasix 40 mg twice daily while in the hospital, and was discharged with oral Lasix 40 mg daily to continue going forward.
As for the rest of his medical problems, they were stable during his hospital stay.
Discharge Plan
-
Patient Disposition: Alf/SNF
Discharge Diagnosis/Procedures: Acute hypoxic respiratory failure (now on 4L NC);
Sepsis with MSSA bacteremia and Multifocal pneumonia (currently on Ancef)
Condition: Fair
Diet: As tolerated, Low Fat, Low Cholesterol and Low Sodium
Activity: As tolerated
Driving Restrictions: Not until seen by your Dr
Referrals:
Eri Alvarenga CRNP [Specified Professional Personl] - 07/15/24 1:00 pm
Jessica Do DO [Family Provider] - in less than 1 week
Additional Discharge Medication Instructions: Continue IV Antibiotic Ancef for 2 weeks
Prescriptions:
New
cefazolin 10 gram Recon Soln
2 g IV Q8H Qty: 10 0RF
furosemide 40 mg Tablet
40 mg PO DAILY Qty: 30 0RF
atorvastatin 40 mg Tablet
40 mg PO QPM Qty: 30 0RF
Eliquis 5 mg Tablet
5 mg PO BID Qty: 60 0RF
diltiazem HCl 240 mg Capsule,Extended Release 24hr
240 mg PO DAILY Qty: 30 0RF
aspirin 81 mg Tablet,Delayed Release (Dr/Ec)
81 mg PO DAILY Qty: 30 0RF
Continued
simvastatin [Zocor] 10 mg Tablet
10 mg PO HS
amlodipine [Norvasc] 5 mg Tablet
5 mg PO DAILY
famotidine [Pepcid] 20 mg Tablet
20 mg PO DAILYPRN PRN (Reason: gerd)
levothyroxine [Synthroid] 50 mcg Tablet
50 mcg PO DAILY
montelukast [Singulair] 10 mg Tablet
10 mg PO DAILYPRN PRN (Reason: SOB)
allopurinol 300 mg Tablet
300 mg PO DAILY
albuterol sulfate 90 mcg/actuation Hfa Aerosol Inhaler
2 puff INHALATION R QIDPRN PRN (Reason: sob)
fluoxetine 20 mg Capsule
20 mg PO BID
Discontinued
lisinopril 40 mg Tablet
40 mg PO DAILY
Discharge Orders:
Discharge Patient (As Directed); Ordered 06/23/24
Ordered By: Arelis Manning
Discharge Date and Time
Print Language: TURKISH
[2024-06-23 16:52] VITALS: BP 146/65
[2024-06-23] MEDS: BenGay-Like TOPICAL (17:01)
[2024-06-23] MEDS: LIPITOR 40 MG PO (17:02)
== END 2024-06-23 18:42 | DRG 871 ==
LOC: 4 WEST ACU 22:33
PROVIDERS: Internal Medicine; Internal Medicine Cardiovascular Disease; Physician Assistant Medical; Registered Nurse; ADMITTING PHYSICIAN Hospitalist; ATTENDING PHYSICIAN Internal Medicine; CONSULT PHYSICIAN Student in an Organized Health Care Education/Training Program; EMERGENCY PHYSICIAN Emergency Medicine; FAMILY PHYSICIAN Family Medicine; OTHER PHYSICIAN Internal Medicine Cardiovascular Disease
PROC: B24BZZ4 Ultrasonography of Heart with Aorta, Transesophageal (ICD-10-PCS; 2024-06-22)
DX: A41.01 Sepsis due to Methicillin susceptible Staphylococcus aureus (principal); I21.4 Non-ST elevation (NSTEMI) myocardial infarction; J15.211 Pneumonia due to Methicillin susceptible Staphylococcus aureus; J96.01 Acute respiratory failure with hypoxia; I50.31 Acute diastolic (congestive) heart failure; N17.9 Acute kidney failure, unspecified; E87.1 Hypo-osmolality and hyponatremia; J45.20 Mild intermittent asthma, uncomplicated; I11.0 Hypertensive heart disease with heart failure; D63.8 Anemia in other chronic diseases classified elsewhere; I45.10 Unspecified right bundle-branch block; G89.29 Other chronic pain; E78.00 Pure hypercholesterolemia, unspecified; E03.9 Hypothyroidism, unspecified; M10.9 Gout, unspecified; F32.A Depression, unspecified; K21.9 Gastro-esophageal reflux disease without esophagitis; I48.0 Paroxysmal atrial fibrillation; Z20.822 Contact with and (suspected) exposure to COVID-19; I69.398 Other sequelae of cerebral infarction; Z87.891 Personal history of nicotine dependence; Z85.828 Personal history of other malignant neoplasm of skin; Z79.899 Other long term (current) drug therapy; Z79.890 Hormone replacement therapy
CPT/HCPCS: 71045; 71046; 71275; 80048; 80053; 80061; 82607; 82728; 82746; 83540; 83735; 83880; 84443; 84484; 85025; 85027; 85610; 85730; 87040; 87070; 87150; 87186; 87205; 87449; 87502; 87641; 87811; 87899; 93005; 93306; 93312; 93320; 93325; 94640; 96365; 96366; 96375; 97116; 97162; 97167; 97530; 97535; 99291; J1160; Q9967

== ENCOUNTER 2024-08-06 15:32 | Inpatient (IN) | payer OTHER, SELFPAY ==
[2024-08-06] VITALS (7 sets, daily range): BP systolic 122–147; BP diastolic 51–72; BMI 27.4; BMI 26.3
[2024-08-06] MEDS: NSS 500 IV (13:10)
[2024-08-06 13:29] LABS: % Basophils 0.6 % (0-2); % Eosinophils 1.2 % (0-6); % Immature Granulocytes 0.3 % (0-0.5); % Lymphocytes 18.9 % (20.5-51.1); Absolute Basophils 0.1 10^3/uL (0-0.2); Absolute Eosinophils 0.1 10^3/uL (0-0.7); Absolute Lymphocytes 1.6 10^3/uL (1.2-3.4); Absolute Monocytes 0.6 10^3/uL (0.1-0.6); Absolute Neutrophils 6.2 10^3/uL (1.4-6.5); Hematocrit 20.9 % (39.0-52.0); Hemoglobin 6.6 g/dL (13.0-18.0); Mean Corp Hgb Conc. 31.6 g/dL (33.0-37.0); Mean Corpuscular Hgb 33.3 pg (27.0-31.0); Mean Corpuscular Volume 105.6 fL (80.0-94.0); Nucleated Red Blood Cells % 0 % (-); Platelet Count 293 10^3/uL (130-400); Red Blood Cell Count 1.98 10^6/uL (4.70-6.10); Red Cell Dist. Width 14.9 % (11.5-14.5); White Blood Cell Count 8.6 10^3/uL (4.8-10.8)
[2024-08-06 13:30] LABS: Blood Urea Nitrogen 22 mg/dl (9-20); Calcium 9.1 mg/dl (8.4-10.2); Carbon Dioxide 27 mmol/L (22-30); Chloride 100 mmol/L (98-107); Estimated Creatinine Clearance 60 ml/min; Glucose 113 mg/dl (70-99); Sodium 137 mmol/L (135-145); eGFR > 60.00
--- NOTE | 2024-08-06 13:31 | ED.GENMED ---
History of Present Illness
General
Chief Complaint: Abnormal Lab Value
Source: patient and family
Exam Limitations: none
Time Seen by Provider: 08/06/24 12:38
Nursing documentation reviewed up to this point in time: agreed with
History of Present Illness
History of Present Illness:
79-year-old male with testicle history of A-fib currently on Eliquis also on a baby aspirin daily, hypertension hyperlipidemia presenting to the emergency department with concerns of a low hemoglobin that was drawn as an outpatient. Patient was
recently admitted to the hospital and diagnosed with multifocal pneumonia NSTEMI and A-fib. He was started on Eliquis at the time. Was having a slightly downtrending hemoglobin. Was getting this checked routinely as an outpatient and found to
have a hemoglobin of 6.7. He has had gradually worsening generalized weakness fatigue some intermittent lightheadedness only with exertion otherwise at rest he feels okay. No chest pain. He has noticed that his stool has been increasingly dark
brown.
Past History
Past History
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
ED Past Surgical History: Cholecystectomy, Orthopedic (Bilateral knee surgery) and Tonsilectomy
Social History
Tobacco: Former smoker
Alcohol: None
Personal:
Living: with family
Family History
Family History: Unable to obtain
Review of Systems
Review of Systems
Allergies reviewed?: Yes
All Other Systems: ROS reviewed and negative except as documented in HPI and ROS
Phy Exam
Physical Exam
Physical Exam:
GENERAL: Alert , in no apparent distress
EYE: pupils equal and reactive
NECK: Supple, no significant adenopathy.
ENT: o/p clr, mmm.
CARDIAC: Regular rate and rhythm .
LUNGS: Clear breath sounds bilaterally, no acute respiratory distress, no wheezes/rales/rhonchi
ABDOMEN: Rectal examination with dark brown stool guaiac positive abdomen soft, without focal tenderness, no r/g, no cvat
NEUROLOGICAL: Alert and oriented, no focal neuro deficits
SKIN: Warm and dry, skin intact.
MUSCULOSKELETAL: No edema, well perfused.
PSYCH: Normal and appropriate interaction.
Course
Orders/Labs/Results
Orders:
Orders
08/06/24 12:39
IV Insert/Care/Rem.- Treatment PRN
0.9% Sodium Chloride 500 ml [Nss] 500 ml IV BOLUS
08/06/24 13:03
Type+Screen Urgent
Basic Metabolic Panel Urgent
Complete Blood Count/With Diff Urgent
08/06/24 13:15
Pantoprazole [Protonix IV] 80 mg IV NOW STA
08/06/24 13:31
* Blood Bank Products Urgent
Blood Bank Products: *Packed RBC Leuko(PRBC's)
Quantity: 1
Transfuse Today: Yes
Reason: Bleeding
08/06/24 13:58
ABO2 Routine
BBK Wristband Number:
Associate notified that ABO2 has been ordered: [id number]
Date: 08/06/24
Time: 13:58
Senior Data Quality Analyst ID: [id number]
Abnormal Lab Results
08/06/24
13:03
RBC 1.98 L 10^6/uL
(4.70-6.10)
Hgb 6.6 L* g/dL
(13.0-18.0)
Hct 20.9 L* %
(39.0-52.0)
MCV 105.6 H fL
(80.0-94.0)
MCH 33.3 H pg
(27.0-31.0)
MCHC 31.6 L g/dL
(33.0-37.0)
RDW 14.9 H %
(11.5-14.5)
Lymphocytes % 18.9 L %
(20.5-51.1)
BUN 22 H mg/dl
(9-20)
Glucose 113 H mg/dl
(70-99)
08/06/24 13:03
08/06/24 13:03
Vital Signs
Initial and Last Documented VS:
Initial Vital Signs
Temp Pulse Resp BP Pulse Ox
97.8 F 76 18 136/51 100
08/06/24 12:11 08/06/24 12:11 08/06/24 12:11 08/06/24 12:11 08/06/24 12:11
Last Documented Vital Signs
Temp Pulse Resp BP Pulse Ox
97.8 F 69 19 136/51 100
08/06/24 12:11 08/06/24 13:30 08/06/24 13:30 08/06/24 12:11 08/06/24 13:07
MDM/Problems Addressed
MDM/Problems Addressed:
79-year-old male presenting to the emergency department today with concerns of low hemoglobin. Hemoglobin 6.7 as an outpatient from 2 days ago 6.6 here. Has vague symptoms generally with exertion. Vital signs otherwise are normal here. Does have
dark brown stool guaiac positive. Patient did take his Eliquis this morning. Blood was ordered for the patient also started on Protonix plan to admit for further treatment and monitoring.
*Critical Care Note
Total Time (30-74mins, 75-104mins- exclusive of procedures): Not Applicable
ED Attending Note
-
Portions of this chart may have been created with voice recognition software.� Occasional wrong word or��sound alike� substitutions may have occurred due to the inherent limitations of voice recognition software.
Discharge Plan
Departure
Patient Disposition: Admit
Date of Disposition: 08/06/24
Time of Disposition: 14:41
Admit to: Telemetry
Admit to doctor: Sharon
Presentation/result/management discussed w/ accepting MD/DO: Hospitalist
Patient with high blood pressure during this ER visit?: No
Condition: Fair
Covid-19: Not Applicable
Discharge Problem:
Anemia, Acute GI bleeding
Prescriptions:
No Action
famotidine [Pepcid] 20 mg Tablet
20 mg PO DAILYPRN PRN (Reason: gerd)
levothyroxine [Synthroid] 50 mcg Tablet
50 mcg PO DAILY
montelukast [Singulair] 10 mg Tablet
10 mg PO HS
allopurinol 300 mg Tablet
300 mg PO DAILY
albuterol sulfate 90 mcg/actuation Hfa Aerosol Inhaler
2 puff INHALATION R QIDPRN PRN (Reason: sob)
fluoxetine 20 mg Capsule
20 mg PO BID
atorvastatin 40 mg Tablet
40 mg PO QPM Qty: 30 0RF
Eliquis 5 mg Tablet
5 mg PO BID Qty: 60 0RF
diltiazem HCl 240 mg Capsule,Extended Release 24hr
240 mg PO DAILY Qty: 30 0RF
aspirin 81 mg Tablet,Delayed Release (Dr/Ec)
81 mg PO DAILY Qty: 30 0RF
pantoprazole [Protonix] 40 mg Tablet,Delayed Release (Dr/Ec)
40 mg PO DAILY
fluticasone propion-salmeterol [Advair HFA] 230-21 mcg/actuation Hfa Aerosol Inhaler
2 puff INHALATION R BID
Metamucil Gummy
3 gummy PO DAILY
furosemide 40 mg tablet
20 mg PO DAILY
Referrals:
Jessica Do DO [Family Provider] -
Interventions
Interventions:
*Risk Screen - Suicide Last Done: 08/06/24 12:11
*General Assessment Last Done: 08/06/24 12:11
*Neglect/Abuse Screening Last Done: 08/06/24 12:11
*ED COVID-19 Vaccine History Last Done: 08/06/24 13:32
Discharge Date and Time
Print Language: VIETNAMESE
[2024-08-06] MEDS: PROTONIX IV 80 MG IV (13:52)
--- NOTE | 2024-08-06 14:43 | HPS.HSE ---
Family Physician
-
Family Physician: Jessica Do
Chief Complaint
-
abnormal out patient lab value
History of Present Illness
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
for evaluation of abnormal out patient lab values. Patient reports that he was told his hgb was trending down while in rehab but had started improving prior to discharge and even more once he was home. Then last lab value done his hgb was 6.7. He
does report recent increased fatigue and noticed dark stool with some bright red blood this morning. His doctor recommended he come to the hospital for evaluation and treatment following receiving lab results. Patient denies any shortness of breath,
dizziness or palpitations.
Medical History
Past Medical History
Past Medical History: Reports Other
Additional Past Medical History:
paroxysmal atrial fibrillation
essential hypertension
hyperlipidemia
HFpEF
mild asthma
depression
gout
hypothyroidism
GERD
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
Hx skin cancer
back pain
herniated disc/bulging disc
IBS
eczema
Past Surgical History: Reports Other (Cholecystectomy, Orthopedic (Bilateral knee surgery) and Tonsilectomy)
Social History
Tobacco: Former Smoker (quit 45 years ago )
Alcohol: None
Drug: None
Family History
Family History: Not pertinent
Allergies / Home Medications
Allergies reflects when Allergies were last updated in [facility].
Home Medications with original date entered in [facility]
Allergy/Medication List:
Allergies
Allergy/AdvReac Type Severity Reaction Status Date / Time
No Known Allergies Allergy Verified 06/15/24 16:44
Home Medications
albuterol sulfate 90 mcg/actuation aerosol inhaler 2 puff inhalation R QIDPRN PRN sob 04/16/24
allopurinol 300 mg tablet 300 mg PO DAILY Gout 04/16/24
famotidine 20 mg tablet (Pepcid) 20 mg PO DAILYPRN PRN gerd 04/16/24
fluoxetine 20 mg capsule 20 mg PO BID Mental Health/Anxiety 04/16/24
levothyroxine 50 mcg tablet (Synthroid) 50 mcg PO DAILY Thyroid 04/16/24
montelukast 10 mg tablet (Singulair) 10 mg PO HS 04/16/24
apixaban 5 mg tablet (Eliquis) 5 mg PO BID #60 tabs 06/23/24
aspirin 81 mg tablet,delayed release 81 mg PO DAILY #30 tabs 06/23/24
atorvastatin 40 mg tablet 40 mg PO QPM #30 tabs 06/23/24
diltiazem HCl 240 mg capsule,extended release 24 hr 240 mg PO DAILY #30 caps 06/23/24
Metamucil Gummy 3 gummy PO DAILY 08/06/24
fluticasone propionate 230 mcg-salmeterol 21 mcg/actuation HFA inhaler (Advair HFA) 2 puff inhalation R BID 08/06/24
furosemide 40 mg tablet 20 mg PO DAILY 08/06/24
pantoprazole 40 mg tablet,delayed release (Protonix) 40 mg PO DAILY 08/06/24
Review of Systems
-
History Source: Patient
Constitutional: Reports Fatigue
EENT: Reports No Symptoms
Respiratory: Reports No Symptoms
Cardiac: Reports No Symptoms
Abdomen/GI: Reports Bloody Stools and Black Stools
: Reports No Symptoms
Musculoskeletal: Reports No Symptoms
Skin: Reports No Symptoms
Neurological: Reports No Symptoms
Endocrine: Reports No Symptoms
Hematologic/Lymphatic: Reports No Symptoms
Psych: Reports No Symptoms
Physical Exam
Vital Signs
Vital Signs
Temp Pulse Resp BP Pulse Ox
97.8 F 69 19 136/51 100
08/06/24 12:11 08/06/24 13:30 08/06/24 13:30 08/06/24 12:11 08/06/24 13:07
Physical Exam
General: Well Developed, Well Nourished, No Apparent Distress, Comfortable, Conversant and Obese
HEENT: NormoCephalic, Moist mucous membranes, Atraumatic, [place] Conjunctivae, Nose Appears Normal, Ears Appear Normal and Hearing Impaired
Respiratory: Clear
Cardiac: S1/S2 and Regular Rhythm
Breast: Deferred by me
GI: Soft, Non Tender, Non Distended and Normal Bowel Sounds; No Organomegaly
Rectal: Hem Positive
Musculoskeletal: No Clubbing, No Cyanosis and No Edema
Skin: IV/Catheter Site
Neuro: Awake, Alert, AO x 3 and Nonfocal/grossly intact
Psych: Calm and Intact Judgment/Insight
Laboratory Results
-
08/06/24 13:03
08/06/24 13:03
Laboratory Results
Total Bilirubin Cancelled 08/06/24 13:03
AST Cancelled 08/06/24 13:03
ALT Cancelled 08/06/24 13:03
Alkaline Phosphatase Cancelled 08/06/24 13:03
Data Reviewed
-
Lab Data: Labs Reviewed by me (Hgb 6.6, Hct 20.9, MCV 105.6)
Impression/Plan
-
IMPRESSION/PLAN:
#GI bleed
#macrocytic anemia
Hgb 6.6, Hct 20.9, MCV 105.6
stool heme positive
- Admit to telemetry
- GI consult
- IV Protonix
- iron studies
- NPO
#paroxysmal atrial fibrillation
- hold Eliquis
- continue diltiazem
#essential hypertension
#hyperlipidemia
- continue atorvastatin
#HFpEF
ECHO (06/16/2024): LV ejection fraction is approximately 55%. Apical akinesis/dyskinesis. Severe basal inferior hypokinesis.
Normal right ventricular size and function.
Mild to moderate tricuspid regurgitation. Estimated pulmonary artery pressure of 35-40 mmHg.
- continue furosemide
- hold aspirin
- daily weights
- I & Os
#mild asthma
- continue Advair
#hypothyroidism
- continue levothyroxine
#depression
- continue fluoxetine
#gout
- continue allopurinol
#GERD
- hold home Protonix
- IV Protonix in setting of UGIB
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
#Hx skin cancer
#back pain
#herniated disc/bulging disc
#IBS
#eczema
Code status: full code
DVT prophylaxis: SCDs
--- NOTE | 2024-08-06 15:37 | W.PN.UPDATE ---
Update Note
Progress Note Update
This is an addendum to the H&P written by Daphnie Barry on 08/06/2024.� Patient seen and examined independently with TRANSPORT SPECIALIST.
79-year-old male past medical history of duodenal ulcer, MSSA pneumonia/bacteremia, CAD, paroxysmal atrial fibrillation on Eliquis, HFpEF, anemia, asthma, hypertension, hyperlipidemia, CVA with residual balance difficulty on the right, depression,
chronic back pain, IBS, eczema, gout, hypothyroidism, presenting with low hemoglobin discovered as outpatient.� He had dark red stool this morning.� Increasing weakness.
Hemoglobin of 6.6.� Macrocytic anemia.� Fecal occult shows dark brown heme positive stool.
Hemoglobin previously 10.1 in June.
Concern for symptomatic acute blood loss anemia secondary to upper GI bleeding likely from peptic/duodenal ulcer.
Check iron studies, B12 and folate.� 1 unit of blood.� Protonix 40 twice daily.� GI consulted.� Hold Eliquis and ASA.� Clear liquid diet, n.p.o. past midnight.
--- NOTE | 2024-08-06 15:58 | CON.GI ---
Consultation
-
Date/Time Consultation Performed: 08/06/2024
Performing Provider: Akbar Ayala MD
Reason for Consultation: anemia, GIB
Medical History
Chief Complaint / HPI
Chief Complaint: fatigue
History of Present Illness:
The patient is an 79-year-old male with past medical history as noted who presents with fatigue and anemia. He was recently hospitalized here with acute hypoxic respiratory failure from the end of May until June 23. He was found to be in
A-fib and started on Eliquis. Echo had normal EF, with mild MR and TR. At that time he had multifocal MSSA bacteremia and pneumonia. He was found to have hemoglobin in the 10-11 range, discharge at 10.1, with MCV of 98.3. His iron studies were
consistent with anemia of chronic disease with a ferritin greater than thousand. When rehab he was noted to have hemoglobin in the sevens though had increased, though outpatient labs then showed marked decrease, now hemoglobin 6.6. He states that
he has been noticing some dark stools over the past week. He denies any abdominal pain, nausea, vomiting, dysphagia, unexpected weight loss. His last endoscopy and colonoscopy were the [facility] about 12 years ago with colon polyp I report
though otherwise unremarkable. He currently has some fatigue and some dyspnea though denies any chest pain. His last dose of Eliquis was this morning.
Past Medical History
Past Medical History: Other (paroxysmal atrial fibrillation essential hypertension hyperlipidemia HFpEF mild asthma depression gout hypothyroidism GERD Hx CVA balance difficulty on right side Hx skin cancer back pain herniated disc/bulging disc IBS
eczema)
Past Surgical History: Other (Cholecystectomy, Orthopedic (Bilateral knee surgery) and Tonsilectomy)
Social History
Tobacco: Former Smoker
Alcohol: None
Family History
Family History: Reviewed & Not Pertinent
Allergies / Home Medications
Allergy/AdvReac Type Severity Reaction Status Date / Time
No Known Allergies Allergy Verified 06/15/24 16:44
�Medication �Instructions �Recorded
albuterol sulfate 90 mcg/actuation 2 puff inhalation R QIDPRN PRN sob 04/16/24
aerosol inhaler
allopurinol 300 mg tablet 300 mg PO DAILY Gout 04/16/24
famotidine 20 mg tablet (Pepcid) 20 mg PO DAILYPRN PRN gerd 04/16/24
fluoxetine 20 mg capsule 20 mg PO BID Mental Health/Anxiety 04/16/24
levothyroxine 50 mcg tablet 50 mcg PO DAILY Thyroid 04/16/24
(Synthroid)
montelukast 10 mg tablet 10 mg PO HS 04/16/24
(Singulair)
apixaban 5 mg tablet (Eliquis) 5 mg PO BID #60 tabs 06/23/24
aspirin 81 mg tablet,delayed 81 mg PO DAILY #30 tabs 06/23/24
release
atorvastatin 40 mg tablet 40 mg PO QPM #30 tabs 06/23/24
diltiazem HCl 240 mg 240 mg PO DAILY #30 caps 06/23/24
capsule,extended release 24 hr
Metamucil Gummy 3 gummy PO DAILY 08/06/24
fluticasone propionate 230 2 puff inhalation R BID 08/06/24
mcg-salmeterol 21 mcg/actuation
HFA inhaler (Advair HFA)
furosemide 40 mg tablet 20 mg PO DAILY 08/06/24
pantoprazole 40 mg tablet,delayed 40 mg PO DAILY 08/06/24
release (Protonix)
Review of Systems
-
All other systems: A 12 pt ROS was Negative except as stated above in HPI
Vital Signs
Temp Pulse Resp BP Pulse Ox
97.8 F 69 19 136/51 100
08/06/24 12:11 08/06/24 13:30 08/06/24 13:30 08/06/24 12:11 08/06/24 13:07
Physical Exam
Exam
General: NAD
HEENT: MMM, anicteric, no lymphadenopathy
Heart: Regular, no murmurs
Lungs: CTA bilaterally
Abdomen: normal bowel sounds, soft, no tenderness, no rebound or guarding, no masses, bruits or ascites
Extremeties: no edema
Skin: no rashes
Results
WBC 8.6 10^3/uL (4.8-10.8) 08/06/24 13:03
Hgb 6.6 g/dL (13.0-18.0) L* 08/06/24 13:03
Hct 20.9 % (39.0-52.0) L* 08/06/24 13:03
MCV 105.6 fL (80.0-94.0) H 08/06/24 13:03
Plt Count 293 10^3/uL (130-400) 08/06/24 13:03
Absolute Neuts (auto) 6.2 10^3/uL (1.4-6.5) 08/06/24 13:03
Sodium 137 mmol/L (135-145) 08/06/24 13:03
Potassium mmol/L (3.5-5.1) 08/06/24 13:03
Chloride 100 mmol/L (98-107) 08/06/24 13:03
Carbon Dioxide 27 mmol/L (22-30) 08/06/24 13:03
BUN 22 mg/dl (9-20) H 08/06/24 13:03
Creatinine 1.0 mg/dL (0.7-1.3) 08/06/24 13:03
Calcium 9.1 mg/dl (8.4-10.2) 08/06/24 13:03
Total Bilirubin Cancelled 08/06/24 13:03
AST Cancelled 08/06/24 13:03
ALT Cancelled 08/06/24 13:03
Alkaline Phosphatase Cancelled 08/06/24 13:03
Diagnostic Image Results:
Prior GI Procedures:
EGD:
Colonoscopy:
Assessment / Plan
-
1. Anemia: With underlying anemia of chronic disease, baseline hemoglobin around 9-10, now 6.6 with dark stools over the past at least week in the setting of Eliquis recently started for A-fib, with some component of acute blood loss anemia. At
this point he is hemodynamically stable, doubt significant brisk active bleeding. Most likely etiologies are angiectasia, though peptic ulcer disease or underlying malignancy are not excluded. His last dose of Eliquis was this morning. Will
continue clears for tonight, trend hemoglobin, for blood transfusion, continue PPI for now. Would plan EGD and colonoscopy after Eliquis washout, EGD sooner if signs of brisk active bleeding.
-
-
Thank you for consultation and allowing me to participate in the patient's care. Please call the concrete paving supervisor GI physician during the after hours with any questions or concerns.
--- NOTE | 2024-08-06 16:13 | CM ---
Patient seen at bedside with in ED. patient states that they live in a 2 story home with 15 steps to enter. Patient has been managing with rollator, no home O2. Patient PCP is Dr. Do and he uses the [facility] in [place]. Patient has had [facility]
and would like them again if needed. Patient was also in [facility] and stated that it was a good experience. Patient plan is for discharge home with [facility] and if needed SNF. CM will continue to follow for discharge planning needs.
Plan; home with VN; [facility] for [facility] vs SNF.
[2024-08-06] MEDS: NSS 1000 IV (16:48)
[2024-08-06] MEDS: LIPITOR 40 MG PO (18:33)
[2024-08-06] MEDS: ADVAIR HFA 230/21 MCG INHALER 2 PUFF INH (19:30)
[2024-08-06] MEDS: PROZAC 20 MG PO (20:31)
[2024-08-06] MEDS: SINGULAIR 10 MG PO (21:34)
[2024-08-07] VITALS (16 sets, daily range): BP systolic 16–174; BP diastolic 54–77; PULSE 71–90; BMI 27.0
[2024-08-07] MEDS: TYLENOL 650 MG PO (02:42)
[2024-08-07] MEDS: SYNTHROID 50 MCG PO (04:37)
[2024-08-07] MEDS: NSS 1000 IV ×2 (04:37→21:46)
[2024-08-07 06:51] LABS: Hematocrit 20.3 % (39.0-52.0); Hemoglobin 6.7 g/dL (13.0-18.0); Mean Corpuscular Hgb 33.3 pg (27.0-31.0); Mean Platelet Volume 9.3 fL (7.4-10.4); Platelet Count 219 10^3/uL (130-400); Red Blood Cell Count 2.01 10^6/uL (4.70-6.10); Red Cell Dist. Width 15.8 % (11.5-14.5); White Blood Cell Count 6.9 10^3/uL (4.8-10.8)
[2024-08-07 07:01] LABS: Blood Urea Nitrogen 15 mg/dl (9-20); Calcium 8.8 mg/dl (8.4-10.2); Carbon Dioxide 26 mmol/L (22-30); Chloride 105 mmol/L (98-107); Estimated Creatinine Clearance 60 ml/min; Glucose 106 mg/dl (70-99); Potassium 3.9 mmol/L (3.5-5.1); Sodium 136 mmol/L (135-145); eGFR > 60.00
[2024-08-07] MEDS: ADVAIR HFA 230/21 MCG INHALER 2 PUFF INH ×2 (07:29→20:58)
--- NOTE | 2024-08-07 08:29 | VNURNOTE ---
Chart reviewed. Patient is current with [facility] nursing, PT, OT. Will continue to follow hospital course and DC plans.
[2024-08-07] MEDS: CARDIZEM CD 240 MG PO (08:34)
[2024-08-07] MEDS: PROZAC 20 MG PO ×2 (08:34→20:36)
[2024-08-07] MEDS: FLUSH (NSS) 1 FLUSH IV ×2 (08:34→17:09)
[2024-08-07] MEDS: NSS (PRESERVATIVE FREE) 10 ML IV (08:34)
[2024-08-07] MEDS: PROTONIX IV 40 MG IV (08:34)
[2024-08-07] MEDS: LASIX 20 MG PO (08:34)
[2024-08-07] MEDS: ZYLOPRIM 300 MG PO (08:34)
--- NOTE | 2024-08-07 13:16 | CM ---
Reviewed the chart notes and spoke with the patient at the bedside. Patient waiting to have endoscopy today. CM continues to be available to patient/family and is monitoring medical plan for needs at discharge.
Plan: Discharge to home when medically stable. No needs identified at this time.
[2024-08-07 14:58] LABS: % Eosinophils 1.1 % (0-6); % Immature Granulocytes 0.4 % (0-0.5); % Lymphocytes 20.8 % (20.5-51.1); % Monocytes 5.9 % (1.7-9.3); % Neutrophils 70.8 % (42.2-75.2); Absolute Basophils 0.1 10^3/uL (0-0.2); Absolute Eosinophils 0.1 10^3/uL (0-0.7); Absolute Lymphocytes 1.7 10^3/uL (1.2-3.4); Absolute Monocytes 0.5 10^3/uL (0.1-0.6); Absolute Neutrophils 5.8 10^3/uL (1.4-6.5); Hematocrit 24.7 % (39.0-52.0); Hemoglobin 8.3 g/dL (13.0-18.0); Mean Corp Hgb Conc. 33.6 g/dL (33.0-37.0); Mean Corpuscular Hgb 32.7 pg (27.0-31.0); Mean Corpuscular Volume 97.2 fL (80.0-94.0); Mean Platelet Volume 9.3 fL (7.4-10.4); Nucleated Red Blood Cells % 0 % (-); Platelet Count 252 10^3/uL (130-400); Red Blood Cell Count 2.54 10^6/uL (4.70-6.10); Red Cell Dist. Width 16.7 % (11.5-14.5); White Blood Cell Count 8.3 10^3/uL (4.8-10.8)
--- NOTE | 2024-08-07 15:18 | W.PN.HOSP.TC ---
Today's Communication/Plan
-
for endoscopy.
Assessment / Plan
Assessment / Plan
#GI bleed
#acute blood loss anemia 2/2 GI bleed.
on presentation hgb < 7
stool heme positive
- Admit to telemetry
- GI consult appreciated.
- IV Protonix
- transfuse additional unit prbc today 08/07
- NPO - for endoscopic evaluation today.
#paroxysmal atrial fibrillation
- hold Eliquis
- continue diltiazem
#essential hypertension
#hyperlipidemia
- continue atorvastatin
#HFpEF
ECHO (06/16/2024): LV ejection fraction is approximately 55%. Apical akinesis/dyskinesis. Severe basal inferior hypokinesis.
Normal right ventricular size and function.
Mild to moderate tricuspid regurgitation. Estimated pulmonary artery pressure of 35-40 mmHg.
- continue furosemide
- hold aspirin
- daily weights
- I & Os
#mild asthma
- continue Advair
#hypothyroidism
- continue levothyroxine
#depression
- continue fluoxetine
#gout
- continue allopurinol
#GERD
- hold home Protonix
- IV Protonix in setting of UGIB
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
#Hx skin cancer
#back pain
#herniated disc/bulging disc
#IBS
#eczema
Anticipated Discharge: 24 - 48 hours
Subjective/Interval History
-
Date of Service: August 07, 2024
Objective Data
-
Labs:
Laboratory Results
08/06/24 08/07/24 08/07/24
13:03 00:30 06:33
WBC 6.9
Hgb Cancelled 6.7 L*
Hct Cancelled 20.3 L*
Plt Count 219 D
Sodium 137 136
Potassium 3.9
Chloride 100 105
Carbon Dioxide 27 26
BUN 22 H 15
Creatinine 1.0 1.0
Glucose 113 H 106 H
Calcium 9.1 8.8
Total Bilirubin Cancelled
AST Cancelled
ALT Cancelled
Alkaline Phosphatase Cancelled
08/07/24
14:35
WBC 8.3
Hgb 8.3 L D
Hct 24.7 L
Plt Count 252
Sodium
Potassium
Chloride
Carbon Dioxide
BUN
Creatinine
Glucose
Calcium
Total Bilirubin
AST
ALT
Alkaline Phosphatase
Vital Signs:
Vital Signs
Temp Pulse Resp BP Pulse Ox
98.6 F 74 18 147/64 97
08/07/24 11:58 08/07/24 11:58 08/07/24 11:58 08/07/24 11:58 08/07/24 11:58
I&O
08/06/24 08/07/24 08/08/24
06:59 06:59 06:59
Intake Total 970 / 970 250 / 250
Output Total 780 / 780 1625 / 1625
Balance 190 / 190 -1375 / -1375
[2024-08-07] MEDS: PROTONIX 100 IV (17:09)
[2024-08-07] MEDS: LIPITOR 40 MG PO (17:10)
[2024-08-07] MEDS: NSS (PRESERVATIVE FREE) IV (20:36)
[2024-08-07] MEDS: SINGULAIR 10 MG PO (21:45)
[2024-08-08] MEDS: PROTONIX 100 IV ×3 (01:56→22:25)
[2024-08-08 03:37] VITALS: BP 129/76
[2024-08-08 06:00] VITALS: BMI 26.7
[2024-08-08] MEDS: SYNTHROID 50 MCG PO (06:33)
[2024-08-08 07:20] VITALS: BP 145/69
[2024-08-08 07:24] LABS: % Basophils 0.7 % (0-2); % Eosinophils 1.6 % (0-6); % Immature Granulocytes 0.4 % (0-0.5); % Lymphocytes 20.7 % (20.5-51.1); % Monocytes 7.9 % (1.7-9.3); % Neutrophils 68.7 % (42.2-75.2); Absolute Basophils 0.1 10^3/uL (0-0.2); Absolute Eosinophils 0.1 10^3/uL (0-0.7); Absolute Lymphocytes 1.5 10^3/uL (1.2-3.4); Absolute Monocytes 0.6 10^3/uL (0.1-0.6); Absolute Neutrophils 5.1 10^3/uL (1.4-6.5); Hematocrit 23.2 % (39.0-52.0); Hemoglobin 7.7 g/dL (13.0-18.0); Mean Corp Hgb Conc. 33.2 g/dL (33.0-37.0); Mean Corpuscular Hgb 32.9 pg (27.0-31.0); Mean Corpuscular Volume 99.1 fL (80.0-94.0); Mean Platelet Volume 9.6 fL (7.4-10.4); Nucleated Red Blood Cells % 0 % (-); Platelet Count 234 10^3/uL (130-400); Red Blood Cell Count 2.34 10^6/uL (4.70-6.10); Red Cell Dist. Width 16.6 % (11.5-14.5); White Blood Cell Count 7.4 10^3/uL (4.8-10.8)
[2024-08-08] MEDS: ADVAIR HFA 230/21 MCG INHALER 2 PUFF INH ×2 (07:28→19:36)
[2024-08-08 07:59] LABS: ALT (SGPT) 16 U/L (0-50); AST (SGOT) 21 U/L (17-59); Albumin 3.7 g/dl (3.5-5.0); Alkaline Phosphatase 98 U/L (38-126); Blood Urea Nitrogen 13 mg/dl (9-20); Calcium 8.9 mg/dl (8.4-10.2); Carbon Dioxide 25 mmol/L (22-30); Chloride 102 mmol/L (98-107); Estimated Creatinine Clearance 60 ml/min; Glucose 107 mg/dl (70-99); Potassium 3.9 mmol/L (3.5-5.1); Sodium 137 mmol/L (135-145); Total Bilirubin 0.8 mg/dl (0.2-1.3); Total Protein 5.9 g/dl (6.3-8.2); eGFR > 60.00
[2024-08-08] MEDS: CARDIZEM CD 240 MG PO (09:44)
[2024-08-08] MEDS: PROZAC 20 MG PO ×2 (09:44→19:55)
[2024-08-08] MEDS: LASIX 20 MG PO (09:44)
[2024-08-08] MEDS: NSS (PRESERVATIVE FREE) IV ×2 (09:44→19:55)
[2024-08-08] MEDS: ZYLOPRIM 300 MG PO (09:44)
[2024-08-08 11:23] VITALS: BP 120/73; BP 137/66; BP 149/67; PULSE 70; PULSE 74; PULSE 89
--- NOTE | 2024-08-08 12:44 | W.PN.GI.CBS2 ---
Today's Communication / Plan
-
Use Protonix (pantoprazole) 40 mg IV daily.
- Clear liquid diet, will advance to full liquid diet.
- Monitor H/H and transfusde as needed.
- If continues to drop H/H, then will need inpatient
colonoscopy and if not, outpatient colonoscopy.
- Hold Anticoagulation for now but if hemoglobin stabilizes, will restart anticoagulation 08/09/2024.
Assessment / Plan
-
1. Anemia: With underlying anemia of chronic disease, baseline hemoglobin around 9-10, now 6.6 with dark stools over the past at least week in the setting of Eliquis recently started for A-fib, with some component of acute blood loss anemia.
Upper endoscopy showing bleeding angiectasia in the second portion of the duodenum, exact location could not be found but APC of a few suspected noted hemoglobin did trend down slightly spots in the small bowel done and Hemoclip placed but no
evidence of active bleeding and BUN normalized.
Use Protonix (pantoprazole) 40 mg IV daily.
- Clear liquid diet, will advance to full liquid diet.
- Monitor H/H and transfusde as needed.
- If continues to drop H/H, then will need inpatient
colonoscopy and if not, outpatient colonoscopy.
- Hold Anticoagulation for now but if hemoglobin stabilizes, will restart anticoagulation 08/09/2024.
Subjective
Subjective
Date of Service: August 08, 2024
Denies any abdominal pain, nausea or vomiting. No bowel movement yet. On clear liquid diet
Objective
Data Reviewed
Laboratory Data:
Laboratory Results
08/08/24 06:36
08/08/24 06:36
Laboratory Results
Total Bilirubin 0.8 mg/dl (0.2-1.3) 08/08/24 06:36
AST 21 U/L (17-59) 08/08/24 06:36
ALT 16 U/L (0-50) 08/08/24 06:36
Alkaline Phosphatase 98 U/L (38-126) 08/08/24 06:36
Vital Signs and I&O:
Vital Signs
Temp Pulse Resp BP Pulse Ox
98.3 F 74 16 120/73 98
08/08/24 11:23 08/08/24 11:23 08/08/24 11:23 08/08/24 11:23 08/08/24 11:23
I&O
08/07/24 08/08/24 08/09/24
06:59 06:59 06:59
Intake Total 970 / 970 1330 / 1330
Output Total 780 / 780 2775 / 2775
Balance 190 / 190 -1445 / -1445
Physical Exam
Physical Exam
GI: Soft, Non Distended and Non Tender
--- NOTE | 2024-08-08 13:20 | W.PN.HOSP.TC ---
Today's Communication/Plan
-
trend H&H
stop IVF
cont PPI
apprec GI
Assessment / Plan
Assessment / Plan
#
pt is an 79 year old male
acute blood loss anemia likely due to GI bleed--heme positive stool--cont IV protonix--s/p 2 units pRBC--trend H&H--apprec GI--diet being advanced--stop IVF--EGD showed bleeding angioectasia in the duodenum
paroxysmal atrial fibrillation - hold Eliquis- continue diltiazem
essential hypertension--cont meds as able
hyperlipidemia - continue atorvastatin
chronic HFpEF--no exacerbation - continue furosemide - hold aspirin - daily weights - I & Os
mild asthma - continue Advair
hypothyroidism- continue levothyroxine
depression - continue fluoxetine
gout - continue allopurinol
GERD - hold home Protonix - IV Protonix in setting of UGIB
other medical issues:
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
Hx skin cancer
back pain
herniated disc/bulging disc
IBS
eczema
Anticipated Discharge: 24 - 48 hours
Subjective/Interval History
-
Date of Service: August 08, 2024
pt without c/o
Objective Data
-
Labs:
Laboratory Results
08/08/24
06:36
WBC 7.4
Hgb 7.7 L
Hct 23.2 L
Plt Count 234
Sodium 137
Potassium 3.9
Chloride 102
Carbon Dioxide 25
BUN 13
Creatinine 1.0
Glucose 107 H
Calcium 8.9
Total Bilirubin 0.8
AST 21
ALT 16
Alkaline Phosphatase 98
Vital Signs:
max temp for 24 hours
08/08/24
11:23
Temp 98.3 F
Vital Signs
Temp Pulse Resp BP Pulse Ox
98.3 F 74 16 120/73 98
08/08/24 11:23 08/08/24 11:23 08/08/24 11:23 08/08/24 11:23 08/08/24 11:23
I&O
08/07/24 08/08/24 08/09/24
06:59 06:59 06:59
Intake Total 970 / 970 1330 / 1330
Output Total 780 / 780 2775 / 2775
Balance 190 / 190 -1445 / -1445
Review of Systems
-
All other systems: Reviewed and negative
Physical Exam
-
General: Well Developed, Well Nourished, No Apparent Distress and Other (pale appearing)
HEENT: Normocephalic and Atraumatic
Respiratory: Clear to Auscultation; Negative Wheezes or Rhonchi
Cardiac: Regular Rhythm and S1/S2; Negative Murmur
GI: Soft, Nontender, Nondistended and Normal Bowel Sounds
Musculoskeletal: No Clubbing, No Cyanosis and No Edema
Skin: Warm
Neuro: Awake
Psych: Calm
[2024-08-08 15:35] VITALS: BP 138/66
[2024-08-08] MEDS: LIPITOR 40 MG PO (17:13)
[2024-08-08 17:34] LABS: Hematocrit 23.5 % (39.0-52.0); Hemoglobin 7.9 g/dL (13.0-18.0)
[2024-08-08 19:14] VITALS: BP 127/76; BP 133/61; BP 137/58; PULSE 74; PULSE 83; PULSE 97
[2024-08-08] MEDS: SINGULAIR 10 MG PO (22:25)
[2024-08-08 23:23] VITALS: BP 143/54
[2024-08-09 03:17] VITALS: BP 140/62
[2024-08-09] MEDS: SYNTHROID 50 MCG PO (05:25)
[2024-08-09 06:00] VITALS: BMI 26.6
[2024-08-09 06:03] LABS: Hematocrit 23.2 % (39.0-52.0); Hemoglobin 7.8 g/dL (13.0-18.0); Mean Corp Hgb Conc. 33.6 g/dL (33.0-37.0); Mean Corpuscular Hgb 33.1 pg (27.0-31.0); Mean Corpuscular Volume 98.3 fL (80.0-94.0); Mean Platelet Volume 9.5 fL (7.4-10.4); Platelet Count 249 10^3/uL (130-400); Red Blood Cell Count 2.36 10^6/uL (4.70-6.10); Red Cell Dist. Width 16.3 % (11.5-14.5); White Blood Cell Count 7.9 10^3/uL (4.8-10.8)
[2024-08-09 06:43] LABS: Blood Urea Nitrogen 11 mg/dl (9-20); Calcium 9.3 mg/dl (8.4-10.2); Carbon Dioxide 25 mmol/L (22-30); Chloride 102 mmol/L (98-107); Estimated Creatinine Clearance 66 ml/min; Glucose 106 mg/dl (70-99); Magnesium 1.9 mg/dl (1.6-2.3); Potassium 3.9 mmol/L (3.5-5.1); Sodium 136 mmol/L (135-145); eGFR > 60.00
[2024-08-09] MEDS: PROTONIX 100 IV (07:12)
[2024-08-09] MEDS: ADVAIR HFA 230/21 MCG INHALER 2 PUFF INH ×2 (07:25→20:00)
[2024-08-09 07:44] VITALS: BP 138/62
[2024-08-09] MEDS: PROZAC 20 MG PO ×2 (07:46→20:28)
[2024-08-09] MEDS: ZYLOPRIM 300 MG PO (07:46)
[2024-08-09] MEDS: LASIX 20 MG PO (07:46)
[2024-08-09] MEDS: CARDIZEM CD 240 MG PO (07:46)
[2024-08-09] MEDS: NSS (PRESERVATIVE FREE) IV ×2 (07:46→20:27)
[2024-08-09 11:00] VITALS: BP 142/59
--- NOTE | 2024-08-09 12:19 | W.PN.HOSP.TC ---
Today's Communication/Plan
-
low residue diet
check H&H in AM--will determine next steps (home with OP colonoscopy OR blood and inpt colonoscopy)
Assessment / Plan
Assessment / Plan
#
pt is an 79 year old male
acute blood loss anemia likely due to GI bleed--heme positive stool--cont IV protonix--s/p 2 units pRBC--trend H&H, remaining around 7.8--apprec GI--diet being advanced, low residue--stop IVF--EGD showed bleeding angioectasia in the duodenum
paroxysmal atrial fibrillation - hold Eliquis- continue diltiazem
essential hypertension--cont meds as able
hyperlipidemia - continue atorvastatin
chronic HFpEF--no exacerbation - continue furosemide - hold aspirin - daily weights - I & Os
mild asthma - continue Advair
hypothyroidism- continue levothyroxine
depression - continue fluoxetine
gout - continue allopurinol
GERD - hold home Protonix - IV Protonix in setting of UGIB
other medical issues:
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
Hx skin cancer
back pain
herniated disc/bulging disc
IBS
eczema
Anticipated Discharge: 24 - 48 hours
Subjective/Interval History
-
Date of Service: August 09, 2024
pt c/o diarrhea today
Objective Data
-
Labs:
Laboratory Results
08/09/24
05:16
WBC 7.9
Hgb 7.8 L
Hct 23.2 L
Plt Count 249
Sodium 136
Potassium 3.9
Chloride 102
Carbon Dioxide 25
BUN 11
Creatinine 0.9
Glucose 106 H
Calcium 9.3
Vital Signs:
max temp for 24 hours
08/08/24
19:14
Temp 98.6 F
Vital Signs
Temp Pulse Resp BP Pulse Ox
97.5 F 73 16 142/59 98
08/09/24 11:00 08/09/24 11:00 08/09/24 11:00 08/09/24 11:00 08/09/24 11:00
I&O
08/08/24 08/09/24 08/10/24
06:59 06:59 06:59
Intake Total 1330 / 1330 120 / 120
Output Total 2775 / 2775 1900 / 1900
Balance -1445 / -1445 -1780 / -1780
Review of Systems
-
All other systems: Reviewed and negative
Abdomen/GI: Reports Diarrhea
Physical Exam
-
General: Well Developed, Well Nourished and No Apparent Distress
HEENT: Normocephalic and Atraumatic
Respiratory: Clear to Auscultation; Negative Wheezes or Rhonchi
Cardiac: Regular Rhythm and S1/S2; Negative Murmur
GI: Soft, Nontender, Nondistended and Normal Bowel Sounds
Musculoskeletal: No Clubbing, No Cyanosis and No Edema
Neuro: Awake
Psych: Calm
--- NOTE | 2024-08-09 12:39 | W.PN.GI.CBS2 ---
Today's Communication / Plan
-
Use Protonix (pantoprazole) 40 mg IV daily.
-Okay to advance to low residue diet
- Monitor H/H and transfusde as needed.
- If continues to drop H/H, then will need inpatient
colonoscopy and if not, outpatient colonoscopy. Eventual small bowel capsule study as well
- Hold Anticoagulation for now but if hemoglobin stabilizes, will restart anticoagulation 08/09/2024.
Assessment / Plan
-
1. Anemia: With underlying anemia of chronic disease, baseline hemoglobin around 9-10, now 6.6 with dark stools over the past at least week in the setting of Eliquis recently started for A-fib, with some component of acute blood loss anemia.
Upper endoscopy showing bleeding angiectasia in the second portion of the duodenum, exact location could not be found but APC of a few suspected noted hemoglobin did trend down slightly spots in the small bowel done and Hemoclip placed but no
evidence of active bleeding and BUN normalized.
Use Protonix (pantoprazole) 40 mg IV daily.
-Okay to advance to low residue diet
- Monitor H/H and transfusde as needed.
- If continues to drop H/H, then will need inpatient
colonoscopy and if not, outpatient colonoscopy.
- Hold Anticoagulation for now but if hemoglobin stabilizes, will restart anticoagulation 08/09/2024.
Subjective
Subjective
Date of Service: August 09, 2024
Patient without any abdominal pain, nausea or vomiting. 1 small dark bowel movement yesterday and brown bowel movement this morning. Tolerating full liquid diet
Objective
Data Reviewed
Laboratory Data:
Laboratory Results
08/09/24 05:16
08/09/24 05:16
Laboratory Results
Magnesium 1.9 mg/dl (1.6-2.3) 08/09/24 05:16
Total Bilirubin 0.8 mg/dl (0.2-1.3) 08/08/24 06:36
AST 21 U/L (17-59) 08/08/24 06:36
ALT 16 U/L (0-50) 08/08/24 06:36
Alkaline Phosphatase 98 U/L (38-126) 08/08/24 06:36
Vital Signs and I&O:
Vital Signs
Temp Pulse Resp BP Pulse Ox
97.5 F 73 16 142/59 98
08/09/24 11:00 08/09/24 11:00 08/09/24 11:00 08/09/24 11:00 08/09/24 11:00
I&O
08/08/24 08/09/24 08/10/24
06:59 06:59 06:59
Intake Total 1330 / 1330 120 / 120
Output Total 2775 / 2775 1900 / 1900
Balance -1445 / -1445 -1780 / -1780
Physical Exam
Physical Exam
GI: Soft, Non Distended and Non Tender
[2024-08-09 15:00] VITALS: BP 133/56
[2024-08-09] MEDS: LIPITOR 40 MG PO (17:11)
[2024-08-09 17:35] VITALS: BP 145/67
[2024-08-09] MEDS: SINGULAIR 10 MG PO (22:07)
[2024-08-09 23:37] VITALS: BP 135/54
[2024-08-10] MEDS: SYNTHROID 50 MCG PO (05:27)
[2024-08-10 06:00] VITALS: BMI 26.1
[2024-08-10 06:23] LABS: Hematocrit 24.7 % (39.0-52.0); Hemoglobin 8.1 g/dL (13.0-18.0); Mean Corp Hgb Conc. 32.8 g/dL (33.0-37.0); Mean Corpuscular Hgb 32.5 pg (27.0-31.0); Mean Corpuscular Volume 99.2 fL (80.0-94.0); Mean Platelet Volume 9.2 fL (7.4-10.4); Platelet Count 261 10^3/uL (130-400); Red Blood Cell Count 2.49 10^6/uL (4.70-6.10); Red Cell Dist. Width 15.9 % (11.5-14.5)
[2024-08-10 07:09] LABS: Blood Urea Nitrogen 13 mg/dl (9-20); Calcium 9.3 mg/dl (8.4-10.2); Carbon Dioxide 26 mmol/L (22-30); Chloride 102 mmol/L (98-107); Estimated Creatinine Clearance 60 ml/min; Glucose 113 mg/dl (70-99); Magnesium 1.8 mg/dl (1.6-2.3); Potassium 3.6 mmol/L (3.5-5.1); Sodium 136 mmol/L (135-145); eGFR > 60.00
[2024-08-10 07:25] VITALS: BP 158/69
[2024-08-10] MEDS: ADVAIR HFA 230/21 MCG INHALER 2 PUFF INH (07:52)
--- NOTE | 2024-08-10 08:57 | W.PN.GI.CBS2 ---
Addendum entered and electronically signed by Sharla Mora MD 08/10/24 16:26:
I saw and examined the patient.
The CENTRIFUGE OPERATOR or PA's note was reviewed and I agree with the note.
Comment: Patient without any complaints, had brown bowel movement without any blood.,. Okay to start oral anticoagulation
Will see him in the office to set up for outpatient colonoscopy if anemia persists.
Addendum entered and electronically signed by HAZEL Cummings 08/10/24 09:15:
stable for discharge- return for recurrent bleeding, drop in hbg or problems
Original Note:
Today's Communication / Plan
-
s/p EGD as noted
hbg stable 8.1 advised OP follow up hbg 1-2 weeks with PCP
tolerating diet
transition to PPI daily
hbg stable ok to resume Eliquis
I sent message to GI office to arrange 3-4 week followup then review for colonoscopy and if anemia persists consider capsule
reviewed with emergency medical technician Dr. Blancas
Assessment / Plan
-
Pt is an 79yo with hx PAF on Eliquis prior to admission, HTN, Hyperlipidemia, HFpEF, asthma, hypothyroidism, depression, gout, GERD,CVA, back pain, skin CA with underlying anemia of chronic disease, baseline hemoglobin around 9-10, now 6.6 on
admission with dark stools. 08/07 Upper endoscopy showing bleeding angiectasia in the second portion of the duodenum, exact location could not be found but APC of a few suspected noted hemoglobin did trend down slightly spots in the small bowel
done and Hemoclip placed but no evidence of active bleeding and BUN normalized.
Laboratory Tests
08/08/24 08/08/24 08/09/24
06:36 17:10 05:16
Hgb 7.7 L 7.9 L 7.8 L
08/10/24
06:04
Hgb 8.1 L
-GI bleed- s/p EGD with bleeding angioectasia
-anemia acute blood loss
other med problems:
HTN, Hyperlipidemia, HFpEF, asthma, hypothyroidism, depression, gout, GERD,CVA, back pain, skin CA with underlying anemia of chronic disease
PLAN:
s/p EGD as noted
hbg stable 8.1 advised OP follow up hbg 1-2 weeks with PCP
tolerating diet
transition to PPI daily
hbg stable ok to resume Eliquis
I sent message to GI office to arrange 3-4 week followup then review for colonoscopy and if anemia persists consider capsule
reviewed with emergency medical technician Dr. Blancas
Subjective
Subjective
Date of Service: August 10, 2024
08/09 brown heme + stool large on low residue diet
Objective
Data Reviewed
Laboratory Data:
Laboratory Results
08/10/24 06:04
08/10/24 06:04
Laboratory Results
Magnesium 1.8 mg/dl (1.6-2.3) 08/10/24 06:04
Total Bilirubin 0.8 mg/dl (0.2-1.3) 08/08/24 06:36
AST 21 U/L (17-59) 08/08/24 06:36
ALT 16 U/L (0-50) 08/08/24 06:36
Alkaline Phosphatase 98 U/L (38-126) 08/08/24 06:36
Vital Signs and I&O:
Vital Signs
Temp Pulse Resp BP Pulse Ox
97.9 F 85 16 135/54 97
08/09/24 23:37 08/10/24 07:54 08/10/24 07:54 08/09/24 23:37 08/10/24 07:54
I&O
08/09/24 08/10/24 08/11/24
06:59 06:59 06:59
Intake Total 120 / 120 660 / 660
Output Total 1900 / 1900 1500 / 1500
Balance -1780 / -1780 -840 / -840
Physical Exam
Physical Exam
HEENT: Anicteric and Moist mucous membranes
Cardiology: Normal Sinus Rhythm
Pulmonary: Clear
GI: Soft
Extremities: No Edema
Neuro: Non Focal
[2024-08-10] MEDS: PROTONIX 40 MG PO (09:58)
[2024-08-10] MEDS: LASIX 20 MG PO (09:58)
[2024-08-10] MEDS: CARDIZEM CD 240 MG PO (09:58)
[2024-08-10] MEDS: ZYLOPRIM 300 MG PO (09:58)
[2024-08-10] MEDS: PROZAC 20 MG PO (09:58)
[2024-08-10] MEDS: NSS (PRESERVATIVE FREE) IV (10:00)
--- NOTE | 2024-08-10 14:14 | CM ---
Patient seen at bedside with physicians. Patient stated he lives with daughter not and she will be able to transfer patient home. [facility] completed and signed forms placed on chart. Patient plan is for home with [facility] to restart and CM will update
liaison. CM will continue to follow for discharge planning needs.
Plan;home with [facility]; GEOFF.
--- NOTE | 2024-08-10 15:13 | W.PN.HOSP.TC ---
Addendum entered and electronically signed by Hafsa Can MD 08/11/24 15:10:
acute blood loss anemia likely due to GI bleed exacerbated by Eliquis
Addendum entered and electronically signed by Hafsa Can MD 08/10/24 15:43:
I saw and evaluated the patient independently. I reviewed the resident�s note and agree with findings and plan as documented by Dr. Blancas.
GENERAL: well developed, well nourished, male in no apparent distress
HEENT: NC/AT
HEART: regular rate and rhythm, +S1, +S2
LUNGS : clear to auscultation bilaterally
ABDOM: soft, nontender, nondistended, + bowel sounds
EXT: no cyanosis, clubbing, or edema
NEUROLOGIC: grossly intact
acute blood loss anemia likely due to GI bleed--heme positive stool--cont IV protonix--s/p 2 units pRBC--trend H&H, remaining around 7.8--apprec GI--tolerated low residue--stop IVF--EGD showed bleeding angioectasia in the duodenum
paroxysmal atrial fibrillation - hold Eliquis- continue diltiazem
essential hypertension--cont meds as able
hyperlipidemia - continue atorvastatin
chronic HFpEF--no exacerbation - continue furosemide - hold aspirin - daily weights - I & Os
mild asthma - continue Advair
hypothyroidism- continue levothyroxine
depression - continue fluoxetine
gout - continue allopurinol
GERD - restart Protonix
other medical issues:
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
Hx skin cancer
back pain
herniated disc/bulging disc
IBS
eczema
cleared for d/c by GI
Original Note:
Today's Communication/Plan
-
Patient to be discharged today with instructions to follow-up with GI in outpatient setting
Assessment / Plan
Assessment / Plan
Assessment:
79-year-old male with a past medical history of paroxysmal A-fib, hypertension, hyperlipidemia, HFpEF, mild asthma, CVA balance difficulty on the right side, and depression presented to the [facility] ED on 08/06/2022 due to recent history
of abnormal outpatient lab values which showed low hemoglobin levels. In the ED patient was found to have hemoglobin of 6.6 along with macrocytic anemia and fecal occult showing dark brown heme positive stool. There is concern for peptic/duodenal
ulcer. Patient was given blood and underwent endoscopy which showed blood in the second portion of the duodenum. Along with a single bleeding angiectasia in the duodenum. Patient received a total of 2 units of blood and his hemoglobin stabilized.
Patient was also started on Protonix and was advanced to low residue diet which was able to tolerate. Patient continues to do well and will follow-up with GI in outpatient setting once discharged.
Upper GI endoscopy (08/07/2024):
- No gross lesions in the entire esophagus.
- Z-line variable, 39 cm from the incisors.
- 2 cm hiatal hernia.
- No gross lesions in the entire stomach.
- Blood in the second portion of the duodenum.
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
- Treated with argon plasma coagulation (APC). Clip was placed.
- No specimens collected.
Plan:
# Acute blood loss anemia likely secondary to GI bleed
-Patient had heme positive stool, black in color
-2 units of blood were transfused
-Hemoglobin seems to have normalized, latest reading was 8.1
-GI was consulted, input appreciated
-Patient was tolerating low residue diet well
-EGD results as above
-Patient to follow-up with GI in outpatient setting for further follow-up including colonoscopy and possible small bowel capsule study if hemoglobin continues to trend down
-Has to schedule an appointment in 3 to 4 weeks
-Patient should get CBC within 1 week and follow-up with PCP after discharge
-Patient was cleared by GI to resume Eliquis
-Patient to continue on PPIs daily
# Paroxysmal A-fib
-Patient cleared to start Eliquis again
-Will continue diltiazem as well
-Continue aspirin on discharge
# Essential hypertension
-Continue home medications
# Hyperlipidemia
-Continue atorvastatin
# Chronic HFpEF
-No acute exacerbation noted
-Will continue furosemide
-Will resume aspirin upon discharge
# Mild asthma
-Continue Advair
#Hypothyroidism
-Continue levothyroxine
# Depression
-Continue fluoxetine
# Gout
-Continue allopurinol
# GERD
-Continue Protonix, p.o. at home
Full code
DVT prophylaxis: SCDs
Anticipated Discharge: Today
Subjective/Interval History
-
Date of Service: August 10, 2024
Patient this morning felt much better, was very energetic and kept saying that he is very happy to go home today. Patient says that he has been getting color back in his skin and is no longer as pale as he used to be. Reports no adverse events
overnight or any acute symptoms currently.
Objective Data
-
Labs:
Laboratory Results
08/10/24
06:04
WBC 8.0
Hgb 8.1 L
Hct 24.7 L
Plt Count 261
Sodium 136
Potassium 3.6
Chloride 102
Carbon Dioxide 26
BUN 13
Creatinine 1.0
Glucose 113 H
Calcium 9.3
Vital Signs:
Vital Signs
Temp Pulse Resp BP Pulse Ox
98.3 F 85 16 158/69 97
08/10/24 07:25 08/10/24 07:54 08/10/24 07:54 08/10/24 07:25 08/10/24 07:54
I&O
08/09/24 08/10/24 08/11/24
06:59 06:59 06:59
Intake Total 120 / 120 660 / 660
Output Total 1900 / 1900 1500 / 1500
Balance -1780 / -1780 -840 / -840
Review of Systems
-
History Source: Patient
Constitutional: Denies Fever, Fatigue, Chills or Weakness
EENT: Reports No Symptoms Reported
Respiratory: Denies Cough or Trouble Breathing
Cardiac: Denies Chest Pain, Diaphoresis or Palpitations
Abdomen/GI: Reports Black Stools; Denies Abdominal Pain, Nausea, Vomiting or Diarrhea
Genitourinary: Reports No Symptoms
Musculoskeletal: Reports No Symptoms
Skin: Reports No Symptoms
Neuro: Denies Headache, Weakness or Lightheadedness
Hematologic / Lymphatic: Reports No Symptoms
Physical Exam
-
General: Well Developed, Well Nourished, No Apparent Distress, Comfortable and Conversant
HEENT: Normocephalic and Atraumatic
Respiratory: Clear to Auscultation; Negative Wheezes
Cardiac: Regular Rhythm and S1/S2
GI: Soft, Nontender and Nondistended
Musculoskeletal: No Clubbing, No Cyanosis and No Edema
Skin: Warm
Neuro: Awake, Alert, Oriented and AO x 3
Psych: Calm
Data Reviewed
-
Medical Tests (Nuc Med, Echo etc): Report Reviewed by me, Discussed with Physician, Discussed with Nurse, Discussed with Patient and Discussed with Family
Labs: Labs Reviewed by me, Discussed with Physician, Discussed with Nurse, Discussed with Patient and Discussed with Family
[2024-08-10 15:35] VITALS: BP 156/71
--- NOTE | 2024-08-10 16:59 | W.DCSUMMARY ---
Addendum entered and electronically signed by Hafsa Can MD 08/10/24 18:27:
Read, reviewed, and agree. See same day progress note for additional details. Time spent coordinating care, DC planning, review of DC plan of care with resident, transition of care, review of records in EMR, med rec, consults, notes, d/w
consultants, nursing, family, and CM = 39 minutes
Original Note:
Discharge Summary
Discharge Data
Date of Admission: 08/06/24
Date of Discharge: 08/10/24
-
Pending Results: No
Hospital Course
Discharging Physician : Dr. Kuldip Blancas, Dr. Hafsa Can
�
Disposition�:�Home
�
Primary�care�physician�: Dr. Jessica Do
�
Principal�Discharge�Diagnosis�:�Acute blood loss anemia likely secondary to GI bleed
�
Chronic�Discharge�Diagnosis:�
Paroxysmal A-fib
Essential hypertension
Hyperlipidemia
Chronic HFpEF
Mild asthma
Hypothyroidism
Depression
Gout
GERD
�
Hospital�Course�:��
79-year-old male with a past medical history of paroxysmal A-fib, hypertension, hyperlipidemia, HFpEF, mild asthma, CVA balance difficulty on the right side, and depression presented to the [facility] ED on 08/06/2022 due to recent history
of abnormal outpatient lab values which showed low hemoglobin levels. Patient had recently been admitted to the hospital and was diagnosed with multifocal pneumonia, NSTEMI and A-fib and was started on Eliquis. Patient had been having gradually
worsening weakness fatigue and lightheadedness with exertion and noticed that his stool was increasingly dark brown. That morning he reported seeing bright red blood as well in his stool along with the black stool. In the ED patient was found to
have hemoglobin of 6.6 along with macrocytic anemia and fecal occult showing dark brown heme positive stool. GI was consulted and patient was started on IV Protonix. Patient's symptoms brought concern for symptomatic acute blood loss secondary to
upper GI bleed likely from peptic/duodenal ulcers. Patient was transfused 1 unit of blood and his anticoagulation medication were held. Another unit of blood was transfused on 08/07 and patient underwent endoscopic evaluation. Upper GI endoscopy
showed blood in the second portion of the duodenum, along with a single bleeding angiectasia in the duodenum. Patient received a total of 2 units of blood and his hemoglobin stabilized. Patient also continued on Protonix and was advanced to low
residue diet which he was able to tolerate. Patient continued to do well and was medically cleared for discharge. Patient was given instructions by GI to follow-up in 3 to 4 weeks for outpatient colonoscopy. Patient counseled to get a CBC in 1
week and follow-up with his outpatient primary care physician. Patient was also cleared to restart his anticoagulation medications with Eliquis and aspirin. Patient's other conditions continue to be managed with home medications and patient was
asked to continue with management as before.
�
Important�imaging�findings�:��None
�
Procedure�findings�:�
Upper GI endoscopy (08/07/2024):
- No gross lesions in the entire esophagus.
- Z-line variable, 39 cm from the incisors.
- 2 cm hiatal hernia.
- No gross lesions in the entire stomach.
- Blood in the second portion of the duodenum.
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
- Treated with argon plasma coagulation (APC). Clip was placed.
- No specimens collected.
�
Discharge Plan
-
Patient Disposition: Home (Routine Discharge)
Discharge Diagnosis/Procedures: Acute blood loss anemia likely secondary to GI bleed
Paroxysmal A-fib
Essential hypertension
Hyperlipidemia
Chronic HFpEF
Mild asthma
Hypothyroidism
Depression
Gout
GERD
Condition: Fair
Diet: Low Residue
Additional Diets: Continue low residue diet for at least 1 week
Activity: No restrictions
Driving Restrictions: As prior to admission
Bathing Restrictions: None
Blood Work: repeat CBC 1-2 weeks with PCP
Specialty Instructions: Weigh Daily- Call MD for wt gain/loss 3 lbs overnight/5 lbs in 1 week
Instructions: Low-fiber diet
Referrals:
Jessica Do, DO [Family Provider] - in less than 1 week
Sharla Mora MD [Active] - (call to arrange follow up with Dr. Mora or ANIMAL CAREGIVER/PA 3-4 week to review for colonoscopy if neg consider capsule. Return to [facility] for recurrent bleeding, anemia or any other problems.)
Additional Discharge Medication Instructions: Follow-up with PCP (Get repeat CBC)
Follow-up with GI, will be seen in 3 to 4 weeks
Stop famotidine 20 mg, continue taking Protonix 40 mg
Prescriptions:
Continued
levothyroxine [Synthroid] 50 mcg Tablet
50 mcg PO DAILY
montelukast [Singulair] 10 mg Tablet
10 mg PO HS
allopurinol 300 mg Tablet
300 mg PO DAILY
albuterol sulfate 90 mcg/actuation Hfa Aerosol Inhaler
2 puff INHALATION R QIDPRN PRN (Reason: sob)
fluoxetine 20 mg Capsule
20 mg PO BID
atorvastatin 40 mg Tablet
40 mg PO QPM Qty: 30 0RF
Eliquis 5 mg Tablet
5 mg PO BID Qty: 60 0RF
diltiazem HCl 240 mg Capsule,Extended Release 24hr
240 mg PO DAILY Qty: 30 0RF
aspirin 81 mg Tablet,Delayed Release (Dr/Ec)
81 mg PO DAILY Qty: 30 0RF
pantoprazole [Protonix] 40 mg Tablet,Delayed Release (Dr/Ec)
40 mg PO DAILY
fluticasone propion-salmeterol [Advair HFA] 230-21 mcg/actuation Hfa Aerosol Inhaler
2 puff INHALATION R BID
Metamucil Gummy
3 gummy PO DAILY
furosemide 40 mg tablet
20 mg PO DAILY
Discontinued
famotidine [Pepcid] 20 mg Tablet
20 mg PO DAILYPRN PRN (Reason: gerd)
Discharge Orders:
Discharge Patient (As Directed); Ordered 08/10/24
Ordered By: Kuldip Blancas
Discharge Date and Time
Print Language: SWEDISH
--- NOTE | 2024-08-11 14:55 | PN.CDI ---
CDI
- -
CDI:
Physician Documentation Request
Admit Date: 08/06/24 15:32
Dear Doctor Juan José/Resident,
Please review the following and provide your response in the progress notes.
Clinical Indicators:
Pt admitted with ABLA /GI bleed found to have bleeding angiectasia duodenum
Documented in GI progress notes ' Anemia: With underlying anemia of chronic disease, baseline hemoglobin around 9-10, now 6.6 with dark stools over the past at least week in the setting of Eliquis recently started for A-fib, with some component of
acute blood loss anemia. '
Eliquis on hold since admit restarted on 08/09
Please clarify the relationship between these conditions:
Yes, ABLA___ is related to/associated with/exacerbated by Eliquis use ___.
No, _ABLA __ is not related to/associated with/exacerbated by Eliquis use ___ but it is due to ___. (Please specify)
Other ( please specify)
Use of terms such as suspected, likely, concern for, or probable (associated with a specific diagnosis that is being evaluated, monitored, or treated as if it exists) are acceptable and can be coded in the inpatient setting, when documented at the
time of discharge.
Thank you,
Kerry Jasso RN
CDI Specialist
[place] [facility]
Please use your independent medical judgment in providing your response.
== END 2024-08-10 17:17 | disposition home health service (06) | DRG 811 ==
LOC: 4 EAST ACU 15:32
PROVIDERS: Internal Medicine; Internal Medicine Gastroenterology; Nurse Practitioner Family; Physician Assistant; ADMITTING PHYSICIAN Hospitalist; ATTENDING PHYSICIAN Internal Medicine; CONSULT PHYSICIAN Internal Medicine Gastroenterology; EMERGENCY PHYSICIAN Emergency Medicine; FAMILY PHYSICIAN Family Medicine
PROC: 30233N1 Transfusion of Nonautologous Red Blood Cells into Peripheral Vein, Percutaneous Approach (ICD-10-PCS; 2024-08-06)
PROC: 0W3P8ZZ Control Bleeding in Gastrointestinal Tract, Via Natural or Artificial Opening Endoscopic (ICD-10-PCS; 2024-08-07)
DX: D62 Acute posthemorrhagic anemia (principal); K31.811 Angiodysplasia of stomach and duodenum with bleeding; I50.32 Chronic diastolic (congestive) heart failure; D68.32 Hemorrhagic disorder due to extrinsic circulating anticoagulants; E78.00 Pure hypercholesterolemia, unspecified; I11.0 Hypertensive heart disease with heart failure; F32.A Depression, unspecified; I48.0 Paroxysmal atrial fibrillation; J45.20 Mild intermittent asthma, uncomplicated; E03.9 Hypothyroidism, unspecified; K21.9 Gastro-esophageal reflux disease without esophagitis; M10.9 Gout, unspecified; T45.515A Adverse effect of anticoagulants, initial encounter; K58.9 Irritable bowel syndrome, unspecified; I69.398 Other sequelae of cerebral infarction; K44.9 Diaphragmatic hernia without obstruction or gangrene; D63.8 Anemia in other chronic diseases classified elsewhere; I25.2 Old myocardial infarction; Z85.828 Personal history of other malignant neoplasm of skin; Z79.890 Hormone replacement therapy; Z79.82 Long term (current) use of aspirin; Z79.01 Long term (current) use of anticoagulants; Z87.891 Personal history of nicotine dependence
CPT/HCPCS: 80048; 80053; 83735; 85014; 85018; 85025; 85027; 86850; 86900; 86901; 86920; 94640; 96374; 99285; P9016

== ENCOUNTER 2024-08-22 23:34 | Inpatient (IN) | payer OTHER, SELFPAY ==
[2024-08-22] VITALS (7 sets, daily range): BP systolic 127–176; BP diastolic 58–71
[2024-08-22 17:39] LABS: % Basophils 0.7 % (0-2); % Eosinophils 1.8 % (0-6); % Immature Granulocytes 0.4 % (0-0.5); % Lymphocytes 25.1 % (20.5-51.1); % Monocytes 8.6 % (1.7-9.3); % Neutrophils 63.4 % (42.2-75.2); Absolute Basophils 0.1 10^3/uL (0-0.2); Absolute Eosinophils 0.2 10^3/uL (0-0.7); Absolute Lymphocytes 2.1 10^3/uL (1.2-3.4); Absolute Monocytes 0.7 10^3/uL (0.1-0.6); Absolute Neutrophils 5.4 10^3/uL (1.4-6.5); Hematocrit 21.3 % (39.0-52.0); Mean Corp Hgb Conc. 32.9 g/dL (33.0-37.0); Mean Corpuscular Hgb 32.1 pg (27.0-31.0); Mean Corpuscular Volume 97.7 fL (80.0-94.0); Mean Platelet Volume 9.7 fL (7.4-10.4); Nucleated Red Blood Cells % 0 % (-); Platelet Count 281 10^3/uL (130-400); Red Blood Cell Count 2.18 10^6/uL (4.70-6.10); Red Cell Dist. Width 15.7 % (11.5-14.5); White Blood Cell Count 8.5 10^3/uL (4.8-10.8)
[2024-08-22 17:45] LABS: INR 1.22; PT 15.7 Sec (11.4-14.6)
[2024-08-22 17:46] LABS: APTT 33.2 Sec (23.4-35.0)
[2024-08-22 17:55] LABS: ALT (SGPT) 17 U/L (0-50); AST (SGOT) 23 U/L (17-59); Albumin 3.8 g/dl (3.5-5.0); Alkaline Phosphatase 118 U/L (38-126); Blood Urea Nitrogen 22 mg/dl (9-20); Carbon Dioxide 27 mmol/L (22-30); Chloride 104 mmol/L (98-107); Glucose 124 mg/dl (70-99); Potassium 4.4 mmol/L (3.5-5.1); Sodium 140 mmol/L (135-145); Total Bilirubin 0.4 mg/dl (0.2-1.3); Total Protein 6.4 g/dl (6.3-8.2); eGFR > 60.00
--- NOTE | 2024-08-22 21:15 | ED.GENMED ---
History of Present Illness
General
Chief Complaint: Abnormal Lab Value
Source: patient and family (Daughter at bedside)
Exam Limitations: none
Time Seen by Provider: 08/22/24 20:46
Nursing documentation reviewed up to this point in time: agreed with
History of Present Illness
History of Present Illness:
79-year-old male with history atrial fibrillation on Eliquis, hypertension, hyperlipidemia recent hospitalizations for upper GI bleed presenting to the emergency department with concerns of low hemoglobin found on outpatient labs. Patient was
discharged discharged from hospital 08/10/2024 after receiving 2 units RBCs for bleeding duodenal angiectasia which was cauterized during endoscopy. Patient was started on PPIs and discharged with GI follow-up in 2 weeks. Patient states he was
feeling well on discharge from hospital and his hemoglobin was 8.1.
However�he states that since arriving home and especially the past week he has been extremely fatigued, lightheaded and short of breath with very minimal exertion. His daughter states that he looks pale. Today he noted that his stool seemed
darker. Patient denies any hemoptysis or hematochezia. No fevers or abdominal pain. Patient denies any exertional chest pain.
He had lab work obtained by his PCP which showed hemoglobin of 7.3 sent to the ED for further evaluation.
Patient is currently taking his Eliquis for atrial fibrillation.
Past History
Past History
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
ED Past Surgical History: Cholecystectomy, Orthopedic (Bilateral knee surgery) and Tonsilectomy
Social History
Tobacco: Former smoker
Alcohol: None
Personal:
Living: with family
Family History
Family History: Unable to obtain
Review of Systems
Review of Systems
Allergies reviewed?: Yes
All Other Systems: ROS reviewed and negative except as documented in HPI and ROS
Phy Exam
Physical Exam
Physical Exam:
Vitals: Patient's vital signs are stable. Afebrile
General: Patient is pale appearing, no acute distress
Skin: Warm and dry, no rashes or lesions
Head: Normocephalic, atraumatic
Eyes: Sclera nonicteric. EOMs intact. No nystagmus.
Throat: Protecting airway
Neck: Normal ROM, no cervical spine tenderness, no meningismus
Cardiac: Irregularly irregular rate, normal rhythm, no murmurs.
Pulm: Normal respiratory effort, no wheezes, rales, rhonchi heard on exam.
Abdomen: Abdomen soft and nontender.
Rectal: Minimal soft brown stool in vault, guaiac positive
Extremities: No evidence of cyanosis or edema. Palpable DP pulses bilaterally
Neuro: AAOx3. Grossly intact.
Psychiatric: Normal affect.
Course
Orders/Labs/Results
Orders:
Orders
08/22/24 17:26
Type+Screen Urgent
Complete Blood Count/With Diff Urgent
Comprehensive Metabolic Panel Urgent
PT/INR [Prothrombin Time] Urgent
Is patient on Coumadin/Warfarin?: No
Comment: [email or web address]
PTT Urgent
08/22/24 21:33
Electrocardiogram (*1) Urgent
Reason for Study: Fatigue / Weakness
EKG- Treatment ONCE
08/22/24 21:42
* Blood Bank Products Urgent
Blood Bank Products: *Packed RBC Leuko(PRBC's)
Quantity: 1
Transfuse Today: Yes
Reason: Anemia
Pantoprazole [Protonix IV] 40 mg IV NOW STA
08/22/24 21:43
Pantoprazole [Protonix IV] 40 mg .ROUTE .STK-MED ONE
08/22/24 22:12
Admit/Transfer Patient As Directed
Co-Sign Provider:
Level of Care: Inpatient admission
Assign to:: Telemetry
Physician / Group: opal
Diagnosis: GI bleed
Reason for Telemetry: Arrhythmia
Date to Stop Telemetry: 08/25/24
Time to Stop Telemetry: 11:00
Reason for Hospitalization: GI bleed
Expected length of stay greater than two midnights?: Yes
ELOS- Estimated Length of Stay in days: 3
I certify the patient meets the requirements for IP care: Yes
PRN Pain Medication Management As Directed
May give lesser potent ordered pain med per pt: Yes
preference::
Protocol:: Medication orders for pain may be administered in a
manner that supports deferring to patient preference
when the pt is:
- Requesting an ordered lesser potent pain medication.
Least to most potent pain medications are defined
as: acetaminophen < NSAID < tramadol < opioids
(morphine, oxycodone, hydromorphone).
- Requesting a lesser dose of the same medication IF
ORDERED.
- Requesting a less intrusive route of administration
if both routes are prescribed by the provider (PO <
IV).
08/22/24 22:13
Code Status As Directed
Resuscitation Status: Full Code
08/23/24 00:25
H&H Q6H
Albuterol [ProAIR HFA INHALER] 2 puff INH R QIDPRN PRN
08/23/24 00:25
Consult Notification Routine
Specialty to Notify: Gastroenterology
GASTROINTESTINAL CONSULT Routine
Consulting Provider: Chani Bermeo
Was physician already notified: No
Reason for consult: GI bleed
Activity As Directed
Activity Level: As Tolerated
INT (Intravenous Needle Therapy) As Directed
Comment: Place 2 IV catheters of the largest bore possible until stable
Orthostatic Vital Signs As Directed
Orthostatic VS Frequency: Now
Comment: then every four hours for twenty-four hours
Pneumatic Compression Sleeves As Directed
Type: Knee high
Vital Signs As Directed
Frequency: Per unit guidelines
DX Deep Vein Thrombosis Video Routine
08/23/24 Breakfast
NPO
Allow oral meds: Yes
Allow clear liquids: No
Complete Blood Count/No Diff IN AM
Levothyroxine [Synthroid] 50 mcg PO DAILY@0600
08/23/24 08:00
Allopurinol [Zyloprim] 300 mg PO DAILY
Diltiazem Extended Release [Cardizem Cd] 240 mg PO DAILY
Fluoxetine HCl [Prozac] 20 mg PO BID
Fluticasone/Salmeterol 230/21 [Advair Hfa 230/21 Mcg Inhaler] 2 puff INH R BID
Furosemide [Lasix] 20 mg PO DAILY
Pantoprazole [Protonix IV] 40 mg IV BID
08/23/24 18:00
Atorvastatin [Lipitor] 40 mg PO QPM
08/23/24 22:00
Montelukast Sodium [Singulair] 10 mg PO HS
08/24/24 06:00
Complete Blood Count/No Diff IN AM
08/25/24 06:00
Complete Blood Count/No Diff IN AM
08/25/24 11:00
DC Protocol for Telemetry ONCE
Abnormal Lab Results
08/22/24
17:26
RBC 2.18 L 10^6/uL
(4.70-6.10)
Hgb 7.0 L g/dL
(13.0-18.0)
Hct 21.3 L %
(39.0-52.0)
MCV 97.7 H fL
(80.0-94.0)
MCH 32.1 H pg
(27.0-31.0)
MCHC 32.9 L g/dL
(33.0-37.0)
RDW 15.7 H %
(11.5-14.5)
Absolute Monos (auto) 0.7 H 10^3/uL
(0.1-0.6)
PT 15.7 H Sec
(11.4-14.6)
BUN 22 H mg/dl
(9-20)
Glucose 124 H mg/dl
(70-99)
Crossmatch IS Only See Detail
08/22/24 17:26
08/22/24 17:26
Vital Signs
Initial and Last Documented VS:
Initial Vital Signs
Temp Pulse Resp BP Pulse Ox
98.1 F 69 16 127/65 99
08/22/24 17:20 08/22/24 17:20 08/22/24 17:20 08/22/24 17:20 08/22/24 17:20
Last Documented Vital Signs
Temp Pulse Resp BP Pulse Ox
97.9 F 78 18 144/69 97
08/23/24 00:35 08/23/24 00:35 08/23/24 00:35 08/23/24 00:35 08/23/24 00:35
MDM/Problems Addressed
Differential Diagnosis Includes:
Not limited to: Symptomatic anemia, upper GI bleeding, lower GI bleeding, malignancy, etc.
MDM/Problems Addressed:
79-year-old male with history as documented presenting with symptomatic anemia and suspected GI bleeding on [facility]. Recently discharged after upper GI bleeding requiring 2 units RBCs. Now with worsening fatigue and exertional shortness of breath
along with noticing dark stools at home. Patient is hemodynamically stable on arrival and afebrile. Physical exam as above. He is pale appearing although in no distress. Cardio/pulmonary assessment unremarkable. Abdomen soft and nontender
throughout. He does have guaiac positive brown stool. Basic labs are sent in triage significant for a hemoglobin of 7.0 today from 8.1 on discharge 08/10/2024. There is a mild elevation in his BUN. Given guaiac positive stools�suspect anemia
likely secondary to acute GI bleeding. Will transfuse 1 unit RBCs in ED given symptoms of anemia with hemoglobin of 7. Blood consent signed. Will admit for further evaluation/management and GI consult given heme positive stools on Eliquis. IV
Protonix given ED. Patient excepted to hospitalist service stable condition.
Chronic conditions affecting care:
Atrial fibrillation on Eliquis, hypertension, recent GI bleed
Acute Exacerbation and/or Progression of Chronic Illness:
Acute GI bleed on Eliquis
*Pulse Oximetry
Patient hypoxic: no
*EKG
Interpreted by ED Provider?: Yes
EKG Intrepretation Date: 08/23/24
Interpretation: abnormal
Comparison EKG: changes noted
Heart Rate: 78
Rate: normal
Rhythm: a-fib
Pearson: normal axis
Interval: long QT
QRS Pattern: right bundle branch block
Ischemia: no ischemia
*[employer]mercial [employer] Account Manager Interpretation
Rate: Commercial [employer] Account Manager- N/A
*Critical Care Note
Total Time (30-74mins, 75-104mins- exclusive of procedures): Not Applicable
Data Reviewed
Review of Other/Old Records Reveals: Labs (Hemoglobin at discharge 08/10/2024 8.1) and Discharge Summary (Discharge summary from 08/10/2024-acute blood loss anemia secondary to GI bleed)
Source: previous hospital records
Patient Management
Discussion with other providers: Hospitalist
Escalation/DeEscalation of care consider admission/obs:
Admit for further evaluation/management and GI consult
ED Attending Note
-
Portions of this chart may have been created with voice recognition software.� Occasional wrong word or��sound alike� substitutions may have occurred due to the inherent limitations of voice recognition software.
Discharge Plan
Departure
Patient Disposition: Admit
Date of Disposition: 08/22/24
Time of Disposition: 21:43
Presentation/result/management discussed w/ accepting MD/DO: Hospitalist
Discharge Problem:
Acute GI bleeding, Symptomatic anemia
Interventions
Interventions:
*Risk Screen - Suicide Last Done: 08/23/24 00:25
*General Assessment Last Done: 08/22/24 21:21
*Neglect/Abuse Screening Last Done: 08/22/24 17:23
*ED- Fall Risk Assessment Last Done: 08/22/24 21:21
*ED COVID-19 Vaccine History Last Done: 08/22/24 21:21
*Nursing Disposition Last Done: 08/23/24 00:30
Discharge Date and Time
Discharge Date/Time: 08/23/24 00:30
[2024-08-22] MEDS: PROTONIX IV 40 MG IV (21:44)
--- NOTE | 2024-08-22 21:55 | HPS.HSE ---
Addendum entered and electronically signed by Gagan Schuster DO 08/22/24 23:50:
Patient seen and examined independently. Agree with findings and plan as set forth by HAZEL Queen.
Patient is an 79y M with PMH significant for hypertension, A-Fib and recent admission for GI bleeding who presents to ED complaining of recurrent fatigue, dyspnea and dark colored stools. Patient had EGD on 08/06 which showed a single bleeding
angioectasia in the duodenum which was treated with clip and APC. Patient had Hgb of 8.1 at discharge. He states that he started to feel fatigue and SOB about 2-3 days ago. He had outpatient labs done and his Hgb was down to 7. Today he also
noted dark / black stool. No BRBPR. No abdominal pain. No N/V.
Ass:
Acute Blood Loss Anemia
GI Bleeding
Medication - Induced Coagulopathy
Paroxysmal Atrial Fibrillation
Benign Hypertension
Chronic HFpEF
Hypothyroidism
Asthma without Acute Exacerbation
Depression
Plan:
Admit for further evaluation and treatment.
Hold Eliquis and ASA for now.
IV PPI.
GI consulted for further evaluation.
PRBCs transfusing in the ED. Follow H&H and provide additional PRBCs if needed.
Continue usual home medications with holding parameters for BP.
NPO pending GI eval.
Original Note:
Family Physician
-
Family Physician: Jessica Do
Chief Complaint
-
black stool
History of Present Illness
79-year-old male with history atrial fibrillation on Eliquis, hypertension, hyperlipidemia recent hospitalizations for upper GI bleed presenting to the emergency department with concerns of low hemoglobin found on outpatient labs. Patient was
discharged discharged from hospital 08/10/2024 after receiving 2 units RBCs for bleeding duodenal angiectasia which was cauterized during endoscopy. Patient was started on PPIs and discharged with GI follow-up in 2 weeks. since the discharge, he was
feeling fatigue, lightheaded, sob with exertion, which progressively got worsened. as per family, he looked pale. he noted dark stool today. his hgb as outpatient was 7.0, which prompted them to come ER. denied chest pain. denied abdominal
pain,n,v,d. denied dysuria or hematuria.
patient on Eliquis since June due atrial fib.
Patient received a dose of Protonix, 1 unit of PRBC. Admitting for further management
Medical History
Past Medical History
Past Medical History: Reports Other
Additional Past Medical History:
Hyperlipidemia
Hypertension
Asthma
Bilateral carotid stenosis
Depression with anxiety
Paroxysmal A-fib
MSSA multifocal pneumonia
Bacteremia
Acute heart failure
Past Surgical History: Reports Other
Additional Past Surgical History:
Cholecystectomy
'Tonsillectomy
Social History
Tobacco: Former Smoker
Alcohol: Occasional
Personal:
Living: With Family
Family History
Family History: Not pertinent
Allergies / Home Medications
Allergies reflects when Allergies were last updated in [employer].
Home Medications with original date entered in [employer]
Allergy/Medication List:
Allergies
Allergy/AdvReac Type Severity Reaction Status Date / Time
No Known Allergies Allergy Verified 06/15/24 16:44
Home Medications
albuterol sulfate 90 mcg/actuation aerosol inhaler 2 puff inhalation R QIDPRN PRN sob 04/16/24
allopurinol 300 mg tablet 300 mg PO DAILY Gout 04/16/24
fluoxetine 20 mg capsule 20 mg PO BID Mental Health/Anxiety 04/16/24
levothyroxine 50 mcg tablet (Synthroid) 50 mcg PO DAILY Thyroid 04/16/24
montelukast 10 mg tablet (Singulair) 10 mg PO HS Allergies 04/16/24
apixaban 5 mg tablet (Eliquis) 5 mg PO BID #60 tabs 06/23/24
aspirin 81 mg tablet,delayed release 81 mg PO DAILY #30 tabs 06/23/24
atorvastatin 40 mg tablet 40 mg PO QPM #30 tabs 06/23/24
diltiazem HCl 240 mg capsule,extended release 24 hr 240 mg PO DAILY #30 caps 06/23/24
Metamucil Gummy 3 gummy PO DAILY Constipation 08/06/24
fluticasone propionate 230 mcg-salmeterol 21 mcg/actuation HFA inhaler (Advair HFA) 2 puff inhalation R BID Lung/Breathing Issues 08/06/24
furosemide 40 mg tablet 20 mg PO DAILY Fluid Retention/Swelling 08/06/24
pantoprazole 40 mg tablet,delayed release (Protonix) 40 mg PO DAILY Gastrointestinal Issue 08/06/24
Review of Systems
-
Constitutional: Reports Fatigue
EENT: Reports No Symptoms
Respiratory: Reports No Symptoms
Cardiac: Reports No Symptoms
Abdomen/GI: Reports Black Stools
: Reports No Symptoms
Musculoskeletal: Reports No Symptoms
Skin: Reports No Symptoms
Neurological: Reports Weakness
Endocrine: Reports No Symptoms
Hematologic/Lymphatic: Reports No Symptoms
Psych: Reports No Symptoms
Physical Exam
Vital Signs
Vital Signs
Temp Pulse Resp BP Pulse Ox
98.1 F 83 16 176/71 99
08/22/24 17:20 08/22/24 21:25 08/22/24 21:25 08/22/24 21:23 08/22/24 21:25
Physical Exam
General: Well Developed, Well Nourished and No Apparent Distress
HEENT: NormoCephalic, Moist mucous membranes and Atraumatic
Respiratory: Clear
Cardiac: S1/S2 and Regular Rhythm; No Murmur or Rub
GI: Soft, Non Tender, Non Distended and Normal Bowel Sounds; No Organomegaly
Rectal: Deferred by Provider
Musculoskeletal: No Clubbing, No Cyanosis and No Edema
Skin: No Rash
Neuro: AO x 3 and Nonfocal/grossly intact
Psych: Calm
Laboratory Results
-
08/22/24 17:26
08/22/24 17:
Laboratory Results
PT 15.7 Sec (11.4-14.6) H 08/22/24 17:
INR 1.22 08/22/24 17:
APTT 33.2 Sec (23.4-35.0) 08/22/24 17:
Total Bilirubin 0.4 mg/dl (0.2-1.3) 08/22/24 17:
AST 23 U/L (17-59) 08/22/24:
ALT 17 U/L (0-50) 08/22/24 17:
Alkaline Phosphatase 118 U/L (38-126) 08/22/24 17:
Data Reviewed
-
Lab Data: Labs Reviewed by me
Impression/Plan
-
# Symptomatic anemia secondary to acute GI bleed
# Recently discharged with GI bleed requiring 2 L RBCs
# EGD with bleeding angiectasia in the duodenum which was cauterized
- Hemoglobin today 7.0
- Guaiac positive stool
- Hold Eliquis
- IV Protonix at continued
- 1 unit of PRBC ordered in ER
- Trend hemoglobin
- CBC in a.m.
-clear liquid diet
- GI consulted
#paroxysmal atrial fibrillation
- hold Eliquis- continue diltiazem
#essential hypertension
#hyperlipidemia
- continue atorvastatin
#chronic HFpEF--no exacerbation
- continue furosemide
- daily weights - I & Os
#mild asthma
- continue Advair , Albuterol and Singulair
#hypothyroidism
- continue levothyroxine
#depression
- continue fluoxetine
#gout
- continue allopurinol
#GERD
-PPI
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
-on asa
#DVT prophylaxis
-scd
#CODE status
-full code
[2024-08-23] VITALS (15 sets, daily range): BP systolic 119–149; BP diastolic 50–70; PULSE 77–93; BMI 26.6
[2024-08-23] MEDS: SYNTHROID PO (06:10)
[2024-08-23 07:34] LABS: Hematocrit 23.5 % (39.0-52.0); Hemoglobin 7.6 g/dL (13.0-18.0)
[2024-08-23 07:35] LABS: Hematocrit 23.5 % (39.0-52.0); Hemoglobin 7.6 g/dL (13.0-18.0); Mean Corp Hgb Conc. 32.3 g/dL (33.0-37.0); Mean Corpuscular Hgb 31.1 pg (27.0-31.0); Mean Corpuscular Volume 96.3 fL (80.0-94.0); Mean Platelet Volume 9.9 fL (7.4-10.4); Platelet Count 261 10^3/uL (130-400); Red Blood Cell Count 2.44 10^6/uL (4.70-6.10); Red Cell Dist. Width 16.5 % (11.5-14.5); White Blood Cell Count 8.1 10^3/uL (4.8-10.8)
--- NOTE | 2024-08-23 08:26 | W.PN.HOSP.TC ---
Today's Communication/Plan
-
see plan
Assessment / Plan
Assessment / Plan
Gen: NAD, AAOx3.
Eyes: EOMI, PERRLA, no scleral icterus.
Neck: supple.
CV: RRR, +S1/S2, no m/r/g.
Resp: CTAB, no rales, wheezes, or rhonchi.
Abd: +BS, soft, NT, ND
Skin: No rashes.
Neuro: CN 2-12 intact, non-focal.
Psych: Normal mood and affect.
Acute blood loss anemia due to upper GI bleeding:
-exacerbated by Eliquis which is on hold
-ASA also on hold
-Recent admission for GI bleeding s/p EGD on 08/06 which showed a single bleeding angioectasia in the duodenum which was treated with clip and APC.
-s/p 1U pRBCs, transfuse another unit now (discussed with GI)
-trend Hb
-c/s GI
-clears
-EGD/colon tomorrow
Other problems:
Paroxysmal Atrial Fibrillation: Eliquis on hold. Cont Cardizem.
Essential Hypertension: cont Cardizem
Chronic HFpEF: Stop lasix as pt is NPO.
Hypothyroidism: cont Levoxyl
Asthma without Acute Exacerbation: cont Advair/Singulair
Depression
FULL/SCDs
Anticipated Discharge: 24 - 48 hours
Subjective/Interval History
-
Date of Service: August 23, 2024
No BM since admission. Denies SOB/CP.
Objective Data
-
Labs:
Laboratory Results
08/23/24 08/23/24 08/23/24
05:56 05:56 05:56
WBC 8.1
Hgb 7.6 L 7.6 L
Hct 23.5 L 23.5 L
Plt Count 261
Vital Signs:
Vital Signs
Temp Pulse Resp BP Pulse Ox
98.3 F 78 16 119/67 95
08/23/24 07:15 08/23/24 07:15 08/23/24 07:15 08/23/24 07:15 08/23/24 07:15
I&O
08/22/24 08/23/24 08/24/24
06:59 06:59 06:59
Intake Total 250 / 250
Balance 250 / 250
[2024-08-23] MEDS: ADVAIR HFA 230/21 MCG INHALER 2 PUFF INH ×2 (08:28→19:24)
--- NOTE | 2024-08-23 09:24 | CON.GI ---
Consultation
-
Date/Time Consultation Requested: 08/23/24
Date/Time Consultation Performed: 08/23/24
Requesting Provider: Dr. Godfrey
Performing Provider: Dr. Bermeo
Reason for Consultation: GI bleeding
Medical History
Chief Complaint / HPI
Chief Complaint: GI bleeding
History of Present Illness:
Seymour Landa is an 79-year-old male w/ pmhx paroxysmal atrial fibrillation on AC, essential hypertension, hyperlipidemia, HFpEF, mild asthma, depression, gout, hypothyroidism, GERD, Hx CVA balance difficulty on right side, Hx skin cancer back pain
herniated disc/bulging disc, IBS, eczema who returns to with concerns for recurrent GI bleeding. Of note, he was admitted to from 08/06-/08/10 with GI bleeding, requiring transfusion with 1 unit of PRBC. He underwent EGD on 08/07 with
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 Following thermal therapy and placement of a hemostatic clip, no bleeding found. His hemoglobin
stabilized following the procedure and he was having brown stool. The plan was to perform a colonoscopy if evidence of continued bleeding/ongoing anemia. His last endoscopy and colonoscopy were the [facility] about 12 years ago with colon polyp
I report though otherwise unremarkable.
He was recently hospitalized here with acute hypoxic respiratory failure from the end of May until June 23. He was found to be in A-fib and started on Eliquis. Echo had normal EF, with mild MR and TR. At that time he had multifocal MSSA
bacteremia and pneumonia. He was found to have hemoglobin in the 10-11 range, discharge at 10.1, with MCV of 98.3. His iron studies were consistent with anemia of chronic disease with a ferritin greater than thousand. It appears his baseline
hemoglobin is around 9-10. He reports noticing his stool going from a brown to a blackish color yesterday, then having some pink tinged stool in the ER. Hgb on arrival was 7.0, BUN 22 (it was 13 on day of d/c 08/10). He was transfused with 1 unit of
PRBC, repeat was 7.6.
Past Medical History
Past Medical History: Other (paroxysmal atrial fibrillation essential hypertension hyperlipidemia HFpEF mild asthma depression gout hypothyroidism GERD Hx CVA balance difficulty on right side Hx skin cancer back pain herniated disc/bulging disc IBS
eczema)
Past Surgical History: Other (Cholecystectomy, Orthopedic (Bilateral knee surgery) and Tonsilectomy)
Social History
Tobacco: Former Smoker
Alcohol: None
Family History
Family History: Reviewed & Not Pertinent
Allergies / Home Medications
Allergy/AdvReac Type Severity Reaction Status Date / Time
No Known Allergies Allergy Verified 06/15/24 16:44
�Medication �Instructions �Recorded
albuterol sulfate 90 mcg/actuation 2 puff inhalation R QIDPRN PRN sob 04/16/24
aerosol inhaler
allopurinol 300 mg tablet 300 mg PO DAILY Gout 04/16/24
fluoxetine 20 mg capsule 20 mg PO BID Mental Health/Anxiety 04/16/24
levothyroxine 50 mcg tablet 50 mcg PO DAILY Thyroid 04/16/24
(Synthroid)
montelukast 10 mg tablet 10 mg PO HS Allergies 04/16/24
(Singulair)
apixaban 5 mg tablet (Eliquis) 5 mg PO BID #60 tabs 06/23/24
aspirin 81 mg tablet,delayed 81 mg PO DAILY #30 tabs 06/23/24
release
atorvastatin 40 mg tablet 40 mg PO QPM #30 tabs 06/23/24
diltiazem HCl 240 mg 240 mg PO DAILY #30 caps 06/23/24
capsule,extended release 24 hr
Metamucil Gummy 3 gummy PO DAILY Constipation 08/06/24
fluticasone propionate 230 2 puff inhalation R BID 08/06/24
mcg-salmeterol 21 mcg/actuation Lung/Breathing Issues
HFA inhaler (Advair HFA)
furosemide 40 mg tablet 20 mg PO DAILY Fluid 08/06/24
Retention/Swelling
pantoprazole 40 mg tablet,delayed 40 mg PO DAILY Gastrointestinal 08/06/24
release (Protonix) Issue
Review of Systems
-
History Source: Patient
All other systems: A 12 pt ROS was Negative except as stated above in HPI
Vital Signs
Temp Pulse Resp BP Pulse Ox
98.3 F 73 16 119/67 95
08/23/24 07:15 08/23/24 08:38 08/23/24 08:38 08/23/24 07:15 08/23/24 08:38
Physical Exam
Exam
General: NAD
HEENT: MMM, anicteric, no lymphadenopathy
Heart: Regular, no murmurs
Lungs: CTA bilaterally
Abdomen: normal bowel sounds, soft, no tenderness, no rebound or guarding, no masses, bruits or ascites
Extremeties: no edema
Skin: no rashes
Results
WBC 8.1 10^3/uL (4.8-10.8) 08/23/24 05:56
Hgb 7.6 g/dL (13.0-18.0) L 08/23/24 05:56
Hgb 7.6 g/dL (13.0-18.0) L 08/23/24 05:56
Hct 23.5 % (39.0-52.0) L 08/23/24 05:56
Hct 23.5 % (39.0-52.0) L 08/23/24 05:56
MCV 96.3 fL (80.0-94.0) H 08/23/24 05:56
Plt Count 261 10^3/uL (130-400) 08/23/24 05:56
Absolute Neuts (auto) 5.4 10^3/uL (1.4-6.5) 08/22/24 17:26
PT 15.7 Sec (11.4-14.6) H 08/22/24 17:26
INR 1.22 08/22/24 17:
APTT 33.2 Sec (23.4-35.0) 08/22/24 17:
Sodium 140 mmol/L (135-145) 08/22/24 17:26
Potassium 4.4 mmol/L (3.5-5.1) 08/22/24 17:
Chloride 104 mmol/L (98-107) 08/22/24 17:
Carbon Dioxide 27 mmol/L (22-30) 08/22/24 17:
BUN 22 mg/dl (9-20) H 08/22/24 17:
Creatinine 1.1 mg/dL (0.7-1.3) 08/22/24 17:
Calcium 9.0 mg/dl (8.4-10.2) 08/22/24 17:
Total Bilirubin 0.4 mg/dl (0.2-1.3) 08/22/24 17:
AST 23 U/L (17-59) 08/22/24 17:
ALT 17 U/L (0-50) 08/22/24 17:
Alkaline Phosphatase 118 U/L (38-126) 08/22/24 17:
Diagnostic Image Results:
Prior GI Procedures:
EGD 08/07/24 (Dr. Mora): - No gross lesions in the entire esophagus.
- Z-line variable, 39 cm from the incisors.
- 2 cm hiatal hernia.
- No gross lesions in the entire stomach.
- Blood in the second portion of the duodenum.
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
Treated with argon plasma coagulation (APC). Clip was
placed.
- No specimens collected.
Colonoscopy: Performed 12 years ago, no records
Assessment / Plan
-
79 y.o. male w/ pmhx paroxysmal atrial fibrillation on AC, essential hypertension, hyperlipidemia, HFpEF, mild asthma, depression, gout, hypothyroidism, GERD, Hx CVA and recent GI bleeding presents with acute on chronic anemia with concerns for
recurrent GI bleeding. He was was last admitted approximately 10 days ago with similar presentation, underwent EGD with APC and hemostatic clip placed to a few small AVMs in the duodenum, some bleeding was seen in the duodenal sweep but could not
locate exact culprit. It is unclear if one of these AVMs was the cause of his bleeding, but his hemoglobin did stabilize following intervention and he discharged home in stable condition. Given the uncertainty of the bleeding source, Dr. Mora did
recommend performing a colonoscopy if he were to experience recurrent bleeding/drops in hemoglobin.
#Recurrent GI bleeding
#Acute on Chronic Anemia
#Afib on eliquis
Plan:
-2 large peripheral gauge IVS
-active T&C
-transfuse for Hgb <7, recommend giving another unit of blood today
-IV PPI BID
-hold eliquis (lasts dose 4/5 in AM)
-Clear liquid diet
-plan for bowel prep today, NPO PMN for enteroscopy and colonoscopy tomorrow. Given his elevated BUN and blood seen in the duodenum on lasts EGD, I am favoring UGI/small bowel source, however, I cannot rule out colonic source of his bleeding either.
Data Reviewed
-
Old Records: Reviewed
-
-
Thank you for consultation and allowing me to participate in the patient's care. Please call the construction recru[facility] GI physician during the after hours with any questions or concerns.
[2024-08-23] MEDS: NSS (PRESERVATIVE FREE) 10 ML IV ×2 (09:57→20:43)
[2024-08-23] MEDS: PROTONIX IV 40 MG IV ×2 (09:58→20:42)
[2024-08-23] MEDS: PROZAC 20 MG PO ×2 (09:59→20:41)
[2024-08-23] MEDS: ZYLOPRIM 300 MG PO (09:59)
[2024-08-23] MEDS: CARDIZEM CD 240 MG PO (10:01)
[2024-08-23] MEDS: CITROMA 300 ML PO (12:30)
--- NOTE | 2024-08-23 14:21 | CM ---
Initial assessment completed
Pt lives with his daughter in a 1 story condo; 14 steps to enter
Independent at baseline, occasionally uses rolling walker when outside of home, drives
SNF - [facility] in past
HH - current with [facility]
Has ride at d/c
PCP - Jessica Do
Pharm - [facility]
Plan - anticipate return home with [facility]
[2024-08-23] MEDS: MIRALAX 51 GRAMS PO ×3 (15:44→21:14)
[2024-08-23] MEDS: LIPITOR 40 MG PO (17:04)
[2024-08-23] MEDS: ZOFRAN 4 MG IV (17:06)
[2024-08-23] MEDS: SINGULAIR 10 MG PO (21:14)
[2024-08-24] VITALS (14 sets, daily range): BP systolic 12–148; BP diastolic 48–71; PULSE 72–80; BMI 26.4
[2024-08-24] MEDS: SYNTHROID 50 MCG PO (05:32)
--- NOTE | 2024-08-24 07:50 | W.PN.HOSP.TC ---
Today's Communication/Plan
-
see plan
Assessment / Plan
Assessment / Plan
Gen: NAD, AAOx3.
Eyes: EOMI, PERRLA, no scleral icterus.
Neck: supple.
CV: remains RRR, +S1/S2, no m/r/g.
Resp: remains CTAB, no rales, wheezes, or rhonchi.
Abd: remains +BS, soft, NT, ND
Skin: No rashes.
Neuro: CN 2-12 intact, non-focal.
Psych: Normal mood and affect.
Acute blood loss anemia due to upper GI bleeding:
-exacerbated by Eliquis which is on hold
-ASA also on hold
-Recent admission for GI bleeding s/p EGD on 08/06 which showed a single bleeding angioectasia in the duodenum which was treated with clip and APC.
-s/p 2U pRBCs
-trend Hb
-EGD/colon today
Other problems:
Paroxysmal Atrial Fibrillation: Eliquis on hold. Cont Cardizem.
Essential Hypertension: cont Cardizem
Chronic HFpEF: Stop lasix as pt is NPO.
Hypothyroidism: cont Levoxyl
Asthma without Acute Exacerbation: cont Advair/Singulair
Depression
FULL/SCDs
Anticipated Discharge: Within 24 hours
Subjective/Interval History
-
Date of Service: August 24, 2024
No new complaints. Denies CP/SOB/abd pain.
Objective Data
-
Labs:
Laboratory Results
08/24/24
06:49
WBC Pending
Hgb Pending
Hct Pending
Plt Count Pending
Sodium Pending
Potassium Pending
Chloride Pending
Carbon Dioxide Pending
BUN Pending
Creatinine Pending
Glucose Pending
Calcium Pending
Vital Signs:
Vital Signs
Temp Pulse Resp BP Pulse Ox
98.1 F 74 18 148/64 97
08/24/24 03:12 08/24/24 03:12 08/24/24 03:12 08/24/24 03:12 08/24/24 03:12
I&O
08/23/24 08/24/24 08/25/24
06:59 06:59 06:59
Intake Total 250 / 250 1530 / 1530
Balance 250 / 250 1530 / 1530
[2024-08-24] MEDS: ADVAIR HFA 230/21 MCG INHALER 2 PUFF INH ×2 (07:58→20:04)
[2024-08-24] MEDS: NSS (PRESERVATIVE FREE) 10 ML IV ×2 (08:13→20:15)
[2024-08-24] MEDS: PROZAC 20 MG PO ×2 (08:14→20:15)
[2024-08-24] MEDS: ZYLOPRIM 300 MG PO (08:14)
[2024-08-24] MEDS: PROTONIX IV 40 MG IV ×2 (08:14→20:15)
[2024-08-24 08:23] LABS: Hematocrit 26.3 % (39.0-52.0); Hemoglobin 8.7 g/dL (13.0-18.0); Mean Corp Hgb Conc. 33.1 g/dL (33.0-37.0); Mean Corpuscular Hgb 30.7 pg (27.0-31.0); Mean Corpuscular Volume 92.9 fL (80.0-94.0); Platelet Count 261 10^3/uL (130-400); Red Blood Cell Count 2.83 10^6/uL (4.70-6.10); Red Cell Dist. Width 18.3 % (11.5-14.5); White Blood Cell Count 7.9 10^3/uL (4.8-10.8)
[2024-08-24 08:48] LABS: Blood Urea Nitrogen 12 mg/dl (9-20); Carbon Dioxide 29 mmol/L (22-30); Chloride 103 mmol/L (98-107); Estimated Creatinine Clearance 60 ml/min; Glucose 106 mg/dl (70-99); Sodium 140 mmol/L (135-145); eGFR > 60.00
--- NOTE | 2024-08-24 09:45 | VNURNOTE ---
Chart reviewed. Patient is current with [facility] nursing, PT, OT. Will continue to follow hospital course and DC plans.
[2024-08-24] MEDS: CARDIZEM CD 240 MG PO (10:00)
--- NOTE | 2024-08-24 12:10 | PTCARENOTE ---
Telephone report given to GI RN Donna; zach arrived @12:10 for transport with chart.
--- NOTE | 2024-08-24 13:54 | CM ---
Chart reviewed
For colonoscopy today
Current with [facility]
Plan - anticipate home with [facility]
--- NOTE | 2024-08-24 14:34 | PTCARENOTE ---
Telephone report received from KARATE BLACK BELTBONIFACIO Vaca following Colonoscopy & Endoscopy; patient returned via stretcher @14:34; VSS.
--- NOTE | 2024-08-24 17:33 | W.PN.UPDATE ---
Update Note
Progress Note Update
Concern for mass in oropharynx on EGD today, ENT to evaluate. Some stigmata of recent bleeding associated with. Patient does not appear to have any symptoms related to this finding. Will arrange for outpatient GI follow-up with Dr. West, at
which point, can discuss if VCE needed for small bowel evaluation. GI will sign off, please call with questions.
[2024-08-24] MEDS: LIPITOR 40 MG PO (17:38)
[2024-08-24] MEDS: SINGULAIR 10 MG PO (21:09)
[2024-08-25 05:15] VITALS: BMI 26.9
[2024-08-25] MEDS: SYNTHROID 50 MCG PO (06:28)
[2024-08-25] MEDS: ADVAIR HFA 230/21 MCG INHALER 2 PUFF INH ×2 (07:30→19:30)
[2024-08-25 07:57] LABS: Blood Urea Nitrogen 15 mg/dl (9-20); Calcium 8.9 mg/dl (8.4-10.2); Carbon Dioxide 27 mmol/L (22-30); Chloride 103 mmol/L (98-107); Estimated Creatinine Clearance 54 ml/min; Glucose 103 mg/dl (70-99); Potassium 4.2 mmol/L (3.5-5.1); Sodium 138 mmol/L (135-145); eGFR > 60.00
[2024-08-25 07:59] LABS: Hemoglobin 8.2 g/dL (13.0-18.0); Mean Corp Hgb Conc. 32.8 g/dL (33.0-37.0); Mean Corpuscular Hgb 31.2 pg (27.0-31.0); Mean Corpuscular Volume 95.1 fL (80.0-94.0); Mean Platelet Volume 10.2 fL (7.4-10.4); Platelet Count 255 10^3/uL (130-400); Red Blood Cell Count 2.63 10^6/uL (4.70-6.10); Red Cell Dist. Width 17.9 % (11.5-14.5); White Blood Cell Count 12.6 10^3/uL (4.8-10.8)
--- NOTE | 2024-08-25 08:02 | CON.MD ---
Consultation - Medical
-
oropharyngeal lesion
79 yo c Htn, a fib presented c GI bleeding
Presently stable, but mass in oropharynx seen on EGD
Quit smoking over 40 yrs ago
No throat pain, dysphagia or oral bleeding
PE - Some varicosities seen on back of tongue
Neck - negative for adenopathy
Flex endoscopy - mild fullness base of tongue with some varicosities but no lesions
Purplish polypoid lesion in region of aryepiglottic fold on left
A/P Hypopharyngeal lesion
Appears benign but may be vascular in nature
No evidence of recent bleeding, but may have bled
Will plan for laryngoscopy and biopsy on
Check CT of neck
[2024-08-25 08:10] VITALS: BP 104/58
[2024-08-25] MEDS: PROTONIX IV 40 MG IV ×2 (08:35→21:09)
[2024-08-25] MEDS: NSS (PRESERVATIVE FREE) 10 ML IV ×2 (08:36→21:09)
[2024-08-25] MEDS: ZYLOPRIM 300 MG PO (09:53)
[2024-08-25] MEDS: CARDIZEM CD 240 MG PO (09:53)
[2024-08-25] MEDS: PROZAC 20 MG PO ×2 (09:53→21:08)
--- NOTE | 2024-08-25 10:08 | W.PN.HOSP.TC ---
Today's Communication/Plan
-
see plan
Assessment / Plan
Assessment / Plan
Gen: NAD, AAOx3.
Eyes: EOMI, PERRLA, no scleral icterus.
Neck: supple.
CV: remains RRR, +S1/S2, no m/r/g.
Resp: remains CTAB, no rales, wheezes, or rhonchi.
Abd: remains +BS, soft, NT, ND
Skin: No rashes.
Neuro: CN 2-12 intact, non-focal.
Psych: Normal mood and affect.
EGD 08/24/24: Large, smooth and ulcerative mass with stigmata of
recent bleeding was found in the oropharynx, not
obstructing the airway. This lesion is suspicious for
malignancy.
- Tortuous esophagus.
- Normal stomach.
- Normal examined duodenum.
- Normal examined jejunum. Tattooed.
- No specimens collected.
Colonoscopy 08/24/24: The examined portion of the ileum was normal.
- Lipomatous ileocecal valve. Biopsied.
- One diminutive polyp in the cecum, removed with a
cold biopsy forceps. Resected and retrieved.
- One 3 mm polyp in the cecum, removed with a cold
snare. Resected and retrieved.
- One 8 mm polyp in the sigmoid colon, removed with a
hot snare. Resected and retrieved.
- Diverticulosis in the sigmoid colon, in the
transverse colon and in the ascending colon.
- Non-bleeding internal hemorrhoids.
Acute blood loss anemia due to bleeding polypoid lesion in region of aryepiglottic fold on left:
-exacerbated by Eliquis which is on hold
-ASA also on hold
-Recent admission for GI bleeding s/p EGD on 08/06 which showed a single bleeding angioectasia in the duodenum which was treated with clip and APC.
-s/p 2U pRBCs
-trend Hb
-EGD 08/24/24 above, notable for Large, smooth and ulcerative mass with stigmata of recent bleeding was found in the oropharynx, not obstructing the airway. This lesion is suspicious for malignancy.
-ENT consulted
-Flex endoscopy: mild fullness base of tongue with some varicosities but no lesions. Purplish polypoid lesion in region of aryepiglottic fold on left
-check CT neck
-for laryngoscopy with Bx on 08/27/24
Other problems:
Paroxysmal Atrial Fibrillation: Eliquis on hold. Cont Cardizem.
Essential Hypertension: cont Cardizem
Chronic HFpEF: holding lasix
Hypothyroidism: cont Levoxyl
Asthma without Acute Exacerbation: cont Advair/Singulair
Depression
FULL/SCDs
Anticipated Discharge: > 48 hours
Subjective/Interval History
-
Date of Service: August 25, 2024
No new complaints.
Objective Data
-
Labs:
Laboratory Results
08/25/24
05:57
WBC 12.6 H
Hgb 8.2 L
Hct 25.0 L
Plt Count 255
Sodium 138
Potassium 4.2
Chloride 103
Carbon Dioxide 27
BUN 15
Creatinine 1.1
Glucose 103 H
Calcium 8.9
Vital Signs:
Vital Signs
Temp Pulse Resp BP Pulse Ox
98.6 F 75 16 104/58 95
08/25/24 08:10 08/25/24 08:10 08/25/24 08:10 08/25/24 08:10 08/25/24 08:10
I&O
08/24/24 08/25/24 08/26/24
06:59 06:59 06:59
Intake Total 1530 / 1530 940 / 940
Balance 1530 / 1530 940 / 940
[2024-08-25 11:05] VITALS: BP 139/51
--- NOTE | 2024-08-25 14:29 | CM ---
Chart reviewed
Neck CT today
Plan for laryngoscopy and bx on
Plan - TBD based on pts needs
[2024-08-25 15:00] VITALS: BP 137/50
[2024-08-25] MEDS: LIPITOR 40 MG PO (17:53)
[2024-08-25 19:17] VITALS: BP 138/59
[2024-08-25] MEDS: SINGULAIR 10 MG PO (21:08)
[2024-08-25 23:13] VITALS: BP 140/61; BP 141/54; BP 151/65; PULSE 72; PULSE 76; PULSE 82
[2024-08-25 23:21] VITALS: BP 141/54
[2024-08-26] MEDS: SYNTHROID 50 MCG PO (05:22)
[2024-08-26 05:43] VITALS: BMI 27.1
[2024-08-26] MEDS: ADVAIR HFA 230/21 MCG INHALER 2 PUFF INH ×2 (07:18→19:09)
[2024-08-26 07:26] VITALS: BP 149/71
[2024-08-26 07:31] LABS: Hematocrit 26.4 % (39.0-52.0); Hemoglobin 8.5 g/dL (13.0-18.0); Mean Corp Hgb Conc. 32.2 g/dL (33.0-37.0); Mean Corpuscular Hgb 30.6 pg (27.0-31.0); Mean Platelet Volume 10.1 fL (7.4-10.4); Platelet Count 255 10^3/uL (130-400); Red Blood Cell Count 2.78 10^6/uL (4.70-6.10); Red Cell Dist. Width 17.3 % (11.5-14.5); White Blood Cell Count 8.1 10^3/uL (4.8-10.8)
[2024-08-26 07:47] LABS: Blood Urea Nitrogen 13 mg/dl (9-20); Calcium 9.1 mg/dl (8.4-10.2); Carbon Dioxide 26 mmol/L (22-30); Chloride 105 mmol/L (98-107); Estimated Creatinine Clearance 60 ml/min; Glucose 118 mg/dl (70-99); Potassium 4.5 mmol/L (3.5-5.1); Sodium 140 mmol/L (135-145); eGFR > 60.00
[2024-08-26] MEDS: ZYLOPRIM 300 MG PO (08:35)
[2024-08-26] MEDS: CARDIZEM CD 240 MG PO (08:35)
[2024-08-26] MEDS: PROZAC 20 MG PO ×2 (08:35→19:58)
[2024-08-26] MEDS: PROTONIX IV 40 MG IV ×2 (08:36→19:57)
[2024-08-26] MEDS: NSS (PRESERVATIVE FREE) 10 ML IV ×2 (08:36→19:58)
--- NOTE | 2024-08-26 08:47 | W.PN.HOSP.TC ---
Today's Communication/Plan
-
see bold
Assessment / Plan
Assessment / Plan
Gen: NAD, AAOx3.
Eyes: EOMI, PERRLA, no scleral icterus.
Neck: supple.
CV: continues to remain RRR, +S1/S2, no m/r/g.
Resp: continues to remain CTAB, no rales, wheezes, or rhonchi.
Abd: continues to remain +BS, soft, NT, ND
Skin: No rashes.
Neuro: CN 2-12 intact, non-focal.
Psych: Normal mood and affect.
EGD 08/24/24: Large, smooth and ulcerative mass with stigmata of
recent bleeding was found in the oropharynx, not
obstructing the airway. This lesion is suspicious for
malignancy.
- Tortuous esophagus.
- Normal stomach.
- Normal examined duodenum.
- Normal examined jejunum. Tattooed.
- No specimens collected.
Colonoscopy 08/24/24: The examined portion of the ileum was normal.
- Lipomatous ileocecal valve. Biopsied.
- One diminutive polyp in the cecum, removed with a
cold biopsy forceps. Resected and retrieved.
- One 3 mm polyp in the cecum, removed with a cold
snare. Resected and retrieved.
- One 8 mm polyp in the sigmoid colon, removed with a
hot snare. Resected and retrieved.
- Diverticulosis in the sigmoid colon, in the
transverse colon and in the ascending colon.
- Non-bleeding internal hemorrhoids.
CT neck: Findings suggesting a small enhancing mass of the right aryepiglottic fold. Direct visualization recommended. Malignancy certainly in the differential. Otherwise unremarkable exam.
Acute blood loss anemia due to bleeding polypoid lesion in region of aryepiglottic fold on right:
-exacerbated by Eliquis which is on hold
-ASA also on hold
-Recent admission for GI bleeding s/p EGD on 3/20 which showed a single bleeding angioectasia in the duodenum which was treated with clip and APC.
-s/p 2U pRBCs
-trend Hb
-EGD 08/24/24 above, notable for Large, smooth and ulcerative mass with stigmata of recent bleeding was found in the oropharynx, not obstructing the airway. This lesion is suspicious for malignancy.
-ENT consulted
-Flex endoscopy: mild fullness base of tongue with some varicosities but no lesions. Purplish polypoid lesion in region of aryepiglottic fold on right
-CT neck above
-for laryngoscopy with Bx on 08/27/24
Other problems:
Paroxysmal Atrial Fibrillation: Eliquis on hold. Cont Cardizem.
Essential Hypertension: cont Cardizem
Chronic HFpEF: holding lasix
Hypothyroidism: cont Levoxyl
Asthma without Acute Exacerbation: cont Advair/Singulair
Depression
FULL/SCDs
Anticipated Discharge: Within 24 hours
Subjective/Interval History
-
Date of Service: August 26, 2024
No new complaints. Had a BM this AM without melena/hematochezia.
Objective Data
-
Labs:
Laboratory Results
08/26/24
05:31
WBC 8.1
Hgb 8.5 L
Hct 26.4 L
Plt Count 255
Sodium 140
Potassium 4.5
Chloride 105
Carbon Dioxide 26
BUN 13
Creatinine 1.0
Glucose 118 H
Calcium 9.1
Vital Signs:
Vital Signs
Temp Pulse Resp BP Pulse Ox
98 F 78 16 149/71 96
08/26/24 07:26 08/26/24 08:35 08/26/24 07:26 08/26/24 08:35 08/26/24 07:26
I&O
08/25/24 08/26/24 08/27/24
06:59 06:59 06:59
Intake Total 940 / 940 1613 / 1613
Balance 940 / 940 1613 / 1613
--- NOTE | 2024-08-26 10:21 | PTCARENOTE ---
Patient transferred to [facility] due to census management. Report given to Larissa VALDOVINOS. Transferred at 1015 via stretcher.
[2024-08-26 10:44] VITALS: BMI 27.1
--- NOTE | 2024-08-26 14:22 | CM ---
CM reviewed medical records. Patient remains acutely ill at this time. Plan remains for home with VN.
[2024-08-26 15:00] VITALS: BP 154/67
--- NOTE | 2024-08-26 16:25 | PTCARENOTE ---
Pt AAO x3, BULL well, ambulatory in room/to BR, eleazar well. VSS. Telemetry:NSR with PAC's. On room air- pulse ox 97%, no SOB noted. Abd large, soft, eleazar PO well. Pt aware of NPO past midnight for OR/ENT procedure on 08/27. Voiding in BR without
difficulty. Resting in bed at present, no c/o. Will continue to monitor.
[2024-08-26] MEDS: LIPITOR 40 MG PO (17:27)
[2024-08-26 19:43] VITALS: BP 159/68
[2024-08-26] MEDS: SINGULAIR 10 MG PO (19:58)
[2024-08-26 23:16] VITALS: BP 104/67
[2024-08-27] VITALS (12 sets, daily range): BP systolic 120–149; BP diastolic 50–94; BMI 27.0
[2024-08-27] MEDS: SYNTHROID 50 MCG PO (05:27)
[2024-08-27] MEDS: ADVAIR HFA 230/21 MCG INHALER 2 PUFF INH ×2 (08:03→19:09)
[2024-08-27] MEDS: PROTONIX 40 MG PO ×2 (08:14→20:34)
[2024-08-27] MEDS: ZYLOPRIM 300 MG PO (08:14)
[2024-08-27] MEDS: CARDIZEM CD 240 MG PO (08:14)
[2024-08-27] MEDS: PROZAC 20 MG PO ×2 (08:18→20:34)
--- NOTE | 2024-08-27 10:38 | W.PN.HOSP.TC ---
Today's Communication/Plan
-
see bold
Assessment / Plan
Assessment / Plan
Gen: remains NAD, AAOx3.
Eyes: remains EOMI, PERRLA, no scleral icterus.
Neck: supple.
CV: RRR, +S1/S2, no m/r/g.
Resp: CTAB, no rales, wheezes, or rhonchi.
Abd: +BS, soft, NT, ND
Skin: No rashes.
Neuro: remains CN 2-12 intact, non-focal.
Psych: Normal mood and affect.
EGD 08/24/24: Large, smooth and ulcerative mass with stigmata of
recent bleeding was found in the oropharynx, not
obstructing the airway. This lesion is suspicious for
malignancy.
- Tortuous esophagus.
- Normal stomach.
- Normal examined duodenum.
- Normal examined jejunum. Tattooed.
- No specimens collected.
Colonoscopy 08/24/24: The examined portion of the ileum was normal.
- Lipomatous ileocecal valve. Biopsied.
- One diminutive polyp in the cecum, removed with a
cold biopsy forceps. Resected and retrieved.
- One 3 mm polyp in the cecum, removed with a cold
snare. Resected and retrieved.
- One 8 mm polyp in the sigmoid colon, removed with a
hot snare. Resected and retrieved.
- Diverticulosis in the sigmoid colon, in the
transverse colon and in the ascending colon.
- Non-bleeding internal hemorrhoids.
CT neck: Findings suggesting a small enhancing mass of the right aryepiglottic fold. Direct visualization recommended. Malignancy certainly in the differential. Otherwise unremarkable exam.
Acute blood loss anemia due to bleeding polypoid lesion in region of aryepiglottic fold on right:
-exacerbated by Eliquis which is on hold
-ASA also on hold
-Recent admission for GI bleeding s/p EGD on 08/06 which showed a single bleeding angioectasia in the duodenum which was treated with clip and APC.
-s/p 2U pRBCs
-Hb stable
-EGD 08/24/24 above, notable for Large, smooth and ulcerative mass with stigmata of recent bleeding was found in the oropharynx, not obstructing the airway. This lesion is suspicious for malignancy.
-ENT following
-Flex endoscopy: mild fullness base of tongue with some varicosities but no lesions. Purplish polypoid lesion in region of aryepiglottic fold on right
-CT neck above
-s/p laryngoscopy with Bx today. As per discussion with Dr. Billings, the patient's lesion was a vascular lesion and would biopsy to bled briskly for a few minutes. Bleeding was controlled with pressure and cautery.
-check Hb at 2000
Other problems:
Paroxysmal Atrial Fibrillation: Eliquis on hold. Cont Cardizem.
Essential Hypertension: cont Cardizem
Chronic HFpEF: holding lasix
Hypothyroidism: cont Levoxyl
Asthma without Acute Exacerbation: cont Advair/Singulair
Depression
FULL/SCDs
Anticipated Discharge: Within 24 hours
Subjective/Interval History
-
Date of Service: August 27, 2024
c/o throat pain
Objective Data
-
Vital Signs:
Vital Signs
Temp Pulse Resp BP Pulse Ox
97.7 F 70 16 146/65 96
08/27/24 07:00 08/27/24 08:14 08/27/24 08:11 08/27/24 08:14 08/27/24 08:11
I&O
08/26/24 08/27/24 08/28/24
06:59 06:59 06:59
Intake Total 1613 / 1613 1570 / 1570
Balance 1613 / 1613 1570 / 1570
--- NOTE | 2024-08-27 13:05 | W.IMMPOSTOP ---
Surgical Immed Post Op Note
-
Primary Surgeon: Cindy Billings
Assisting Surgeon:
Pre-op Diagnosis: Lesion R aryepiglottic fold
Post-op Diagnosis: same
Procedure Performed: microdirect laryngoscopy and biopsy
Anesthesia Type: gen
Specimen / Cultures: laryngeal lesion
Estimated Blood Loss: 75 cc
Complications: none, some initial brisk bleeding from biopsy, controlled c pressure and cautery
Operative Findings: vascular lesion R larynx
--- NOTE | 2024-08-27 13:07 | W.PN.UPDATE ---
Update Note
Progress Note Update
Pt taken to OR for laryngoscopy and biopsy
Purplish vascular appearing lesion R larynx
Biopsy taken, initial brisk bleeding requiring temporary packing, and followed by cautery
Bleeding controlled, specimen sent to pathology
Would monitor H & H closely x next 24 hrs
Pt tolerated procedure well
--- NOTE | 2024-08-27 17:00 | PTCARENOTE ---
Received patient this am AAOx3. Pt NPO for OR. Pt OOB ambulating in room an hallway independently with a steady gait. Report called to OR this am and patient sent to OR.
--- NOTE | 2024-08-27 17:03 | PTCARENOTE ---
1400 Received patient from PACU AAOx3. Pt complained of a sore throat secondary to Biopsy done in OR. VSS. HRRI apically. Lungs clear. Made patient comfortable. Cont to assess patient status.
[2024-08-27] MEDS: LIPITOR 40 MG PO (17:21)
[2024-08-27] MEDS: MORPHINE SULFATE 2 MG IV (18:02)
[2024-08-27] MEDS: SINGULAIR 10 MG PO (20:34)
[2024-08-27 20:46] LABS: Hemoglobin 10.4 g/dL (13.0-18.0)
[2024-08-28 03:21] VITALS: BP 148/66
[2024-08-28] MEDS: FLUSH (NSS) 1 FLUSH IV (03:31)
[2024-08-28] MEDS: MORPHINE SULFATE 2 MG IV (03:31)
[2024-08-28] MEDS: SYNTHROID 50 MCG PO (05:22)
[2024-08-28 05:36] VITALS: BMI 27.0
[2024-08-28] MEDS: ANESTHETIC LOZENGE 1 LOZENGE PO (05:45)
--- NOTE | 2024-08-28 07:31 | W.PN.HOSP.TC ---
Addendum entered and electronically signed by Kyle Godfrey MD 08/28/24 13:46:
Total time spent on d/c = 33 min. This included today's physical exam, progress note, review of laboratory and diagnostic data, preparation of discharge documents and prescriptions, and discussions about the pt's hospital course and discharge plan
with the patient and other medical record assistant involved in the patient's care.
Original Note:
Today's Communication/Plan
-
see bold
Assessment / Plan
Assessment / Plan
Gen: Continues to remain NAD, AAOx3.
Eyes: Continues term EOMI, PERRLA, no scleral icterus.
Neck: supple.
CV: RRR, +S1/S2, no m/r/g.
Resp: CTAB, no rales, wheezes, or rhonchi.
Abd: +BS, soft, NT, ND
Skin: No rashes.
Neuro: Continues to remain CN 2-12 intact, non-focal.
Psych: Normal mood and affect.
EGD 08/24/24: Large, smooth and ulcerative mass with stigmata of
recent bleeding was found in the oropharynx, not
obstructing the airway. This lesion is suspicious for
malignancy.
- Tortuous esophagus.
- Normal stomach.
- Normal examined duodenum.
- Normal examined jejunum. Tattooed.
- No specimens collected.
Colonoscopy 08/24/24: The examined portion of the ileum was normal.
- Lipomatous ileocecal valve. Biopsied.
- One diminutive polyp in the cecum, removed with a
cold biopsy forceps. Resected and retrieved.
- One 3 mm polyp in the cecum, removed with a cold
snare. Resected and retrieved.
- One 8 mm polyp in the sigmoid colon, removed with a
hot snare. Resected and retrieved.
- Diverticulosis in the sigmoid colon, in the
transverse colon and in the ascending colon.
- Non-bleeding internal hemorrhoids.
CT neck: Findings suggesting a small enhancing mass of the right aryepiglottic fold. Direct visualization recommended. Malignancy certainly in the differential. Otherwise unremarkable exam.
Acute blood loss anemia due to bleeding polypoid lesion in region of aryepiglottic fold on right:
-exacerbated by Eliquis which is on hold
-ASA also on hold
-Recent admission for GI bleeding s/p EGD on 08/06 which showed a single bleeding angioectasia in the duodenum which was treated with clip and APC.
-s/p 2U pRBCs
-Hb stable
-EGD 08/24/24 above, notable for Large, smooth and ulcerative mass with stigmata of recent bleeding was found in the oropharynx, not obstructing the airway. This lesion is suspicious for malignancy.
-ENT following
-Flex endoscopy: mild fullness base of tongue with some varicosities but no lesions. Purplish polypoid lesion in region of aryepiglottic fold on right
-CT neck above
-s/p laryngoscopy with Bx 08/27/24. As per discussion with Dr. Billings, the patient's lesion was a vascular lesion and with biopsy bled briskly for a few minutes. Bleeding was controlled with pressure and cautery.
-AM Hb stable from yesterday AM
-Okay for discharge if patient can tolerate solid food
Other problems:
Paroxysmal Atrial Fibrillation: Eliquis on hold. Cont Cardizem.
Essential Hypertension: cont Cardizem
Chronic HFpEF: restart lasix
Hypothyroidism: cont Levoxyl
Asthma without Acute Exacerbation: cont Advair/Singulair
Depression
FULL/SCDs
Anticipated Discharge: Today
Subjective/Interval History
-
Date of Service: August 28, 2024
No new complaints to me but patient reported to nursing dysphagia.
Objective Data
-
Labs:
Laboratory Results
08/27/24 08/28/24
20:30 06:48
WBC Pending
Hgb 10.4 L D Pending
Hct Pending
Plt Count Pending
Sodium Pending
Potassium Pending
Chloride Pending
Carbon Dioxide Pending
BUN Pending
Creatinine Pending
Glucose Pending
Calcium Pending
Vital Signs:
Vital Signs
Temp Pulse Resp BP Pulse Ox
97.9 F 82 18 148/66 95
08/28/24 03:21 08/28/24 03:21 08/28/24 03:21 08/28/24 03:21 08/28/24 03:21
I&O
08/27/24 08/28/24 08/29/24
06:59 06:59 06:59
Intake Total 1570 / 1570 1320 / 1320
Balance 1570 / 1570 1320 / 1320
[2024-08-28] MEDS: ADVAIR HFA 230/21 MCG INHALER 2 PUFF INH (07:54)
[2024-08-28 08:13] VITALS: BP 150/71
[2024-08-28 08:17] LABS: Hemoglobin 8.7 g/dL (13.0-18.0); Mean Corp Hgb Conc. 32.2 g/dL (33.0-37.0); Mean Corpuscular Hgb 30.9 pg (27.0-31.0); Mean Corpuscular Volume 95.7 fL (80.0-94.0); Mean Platelet Volume 9.9 fL (7.4-10.4); Platelet Count 262 10^3/uL (130-400); Red Blood Cell Count 2.82 10^6/uL (4.70-6.10); Red Cell Dist. Width 16.6 % (11.5-14.5); White Blood Cell Count 9.8 10^3/uL (4.8-10.8)
[2024-08-28 08:42] LABS: Blood Urea Nitrogen 19 mg/dl (9-20); Calcium 9.2 mg/dl (8.4-10.2); Carbon Dioxide 23 mmol/L (22-30); Chloride 101 mmol/L (98-107); Estimated Creatinine Clearance 60 ml/min; Glucose 143 mg/dl (70-99); Potassium 4.7 mmol/L (3.5-5.1); Sodium 137 mmol/L (135-145); eGFR > 60.00
[2024-08-28] MEDS: ZYLOPRIM 300 MG PO (08:59)
[2024-08-28] MEDS: PROTONIX 40 MG PO (08:59)
[2024-08-28] MEDS: CARDIZEM CD 240 MG PO (08:59)
[2024-08-28] MEDS: PROZAC 20 MG PO (08:59)
--- NOTE | 2024-08-28 12:35 | PTCARENOTE ---
Patient complained of 'chocking' sensation on clear liquids. Diet advanced to solids per Dr. Godfrey. Will monitor closely. If patient reports continued difficulty swallowing speech to be consulted per hospitalist.
[2024-08-28] MEDS: LASIX 20 MG PO (12:39)
--- NOTE | 2024-08-28 15:25 | CM ---
CM reviewed chart, patient for discharge today. Patient seen, confirms daughter will provide transportation home. IMM reviewed, signed, placed in chart, patient provided with copy. Patient will return home with [facility] services. CM will continue to
follow for all discharge planning needs.
Plan; home with [facility]
[2024-08-28 16:09] VITALS: BP 137/58
== END 2024-08-28 17:02 | disposition home health service (06) | DRG 154 ==
LOC: 4 EAST ACU 23:34
PROVIDERS: Emergency Medicine; Registered Nurse; ADMITTING PHYSICIAN Hospitalist; ATTENDING PHYSICIAN Internal Medicine; CONSULT PHYSICIAN Internal Medicine; CONSULT PHYSICIAN Otolaryngology; EMERGENCY PHYSICIAN Emergency Medicine; FAMILY PHYSICIAN Family Medicine
PROC: 30233N1 Transfusion of Nonautologous Red Blood Cells into Peripheral Vein, Percutaneous Approach (ICD-10-PCS; 2024-08-22)
PROC: 3E0G8GC Introduction of Other Therapeutic Substance into Upper GI, Via Natural or Artificial Opening Endoscopic (ICD-10-PCS; 2024-08-24)
PROC: 0DBH8ZZ Excision of Cecum, Via Natural or Artificial Opening Endoscopic (ICD-10-PCS; 2024-08-24)
PROC: 0DBN8ZZ Excision of Sigmoid Colon, Via Natural or Artificial Opening Endoscopic (ICD-10-PCS; 2024-08-24)
PROC: 0CBS8ZX Excision of Larynx, Via Natural or Artificial Opening Endoscopic, Diagnostic (ICD-10-PCS; 2024-08-27)
DX: J38.1 Polyp of vocal cord and larynx (principal); K31.811 Angiodysplasia of stomach and duodenum with bleeding; D62 Acute posthemorrhagic anemia; I50.32 Chronic diastolic (congestive) heart failure; Q39.9 Congenital malformation of esophagus, unspecified; D68.32 Hemorrhagic disorder due to extrinsic circulating anticoagulants; I48.0 Paroxysmal atrial fibrillation; I11.0 Hypertensive heart disease with heart failure; J45.909 Unspecified asthma, uncomplicated; F32.A Depression, unspecified; I65.23 Occlusion and stenosis of bilateral carotid arteries; M10.9 Gout, unspecified; K21.9 Gastro-esophageal reflux disease without esophagitis; K64.8 Other hemorrhoids; D12.0 Benign neoplasm of cecum; D12.5 Benign neoplasm of sigmoid colon; T45.515A Adverse effect of anticoagulants, initial encounter; E03.9 Hypothyroidism, unspecified; E78.5 Hyperlipidemia, unspecified; K44.9 Diaphragmatic hernia without obstruction or gangrene; K57.30 Diverticulosis of large intestine without perforation or abscess without bleeding; Z87.891 Personal history of nicotine dependence; Z79.890 Hormone replacement therapy; Z79.899 Other long term (current) drug therapy; Z79.82 Long term (current) use of aspirin; Z79.01 Long term (current) use of anticoagulants; Z79.51 Long term (current) use of inhaled steroids; Z85.828 Personal history of other malignant neoplasm of skin; Z86.73 Personal history of transient ischemic attack (TIA), and cerebral infarction without residual deficits
CPT/HCPCS: 88305; 36430; 70491; 80048; 80053; 85014; 85018; 85025; 85027; 85610; 85730; 86850; 86900; 86901; 86920; 93005; 94640; 96374; 99285; P9016; Q9967

== ENCOUNTER 2024-09-23 06:58 | Inpatient (IN) | payer OTHER, SELFPAY ==
[2024-09-23] VITALS (44 sets, daily range): BP systolic 84–146; BP diastolic 45–74; BMI 26.8
--- NOTE | 2024-09-23 04:51 | ED.GENMED ---
History of Present Illness
General
Chief Complaint: Chest Pain
Source: patient and ambulance crew
Time Seen by Provider: 09/23/24 04:49
Nursing documentation reviewed up to this point in time: agreed with
History of Present Illness
History of Present Illness:
Pleasant 79-year-old male presents emerged part with substernal chest pain that awakened him from sleep at 3 AM. Patient states that his pain was in his pain was initially 8 out of 10. He called 911. Upon arrival, they did an EKG and found that
he was having a STEMI. They gave him 1 nitroglycerin and brought his pain down to 4 out of 10. They gave him 324 of aspirin which helped. Once they determined that they had a STEMI, they transmitted the EKG. Shortly thereafter they called and we
called a STEMI alert at 4:[address] Tineo called back immediately and discussed the case. He initially wanted heparin and aspirin as per protocol. Patient was unable to take heparin because he stated that the last time he got it 'his arm went
black '. After some quick research, it was determined that he extravasated the heparin. Dr. Cabrera requested that we give Bilavarudin. We ordered that from the pharmacy. While waiting for the medication, we gave patient another nitroglycerin
which brought his pain from 4 out of 10 to 1 out of 10. At this point Dr. Cabrera arrived and took the patient up to the Side Door Worker. He is aware that patient has not been on Eliquis for over a month. Patient had GI bleed and was taken off
anticoagulation about a month ago. He was initially on anticoagulation for atrial fibrillation.
STEMI alert called at 4:29 AM
Past History
Past History
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
ED Past Surgical History: Cholecystectomy, Orthopedic (Bilateral knee surgery) and Tonsilectomy
Social History
Tobacco: Former smoker
Alcohol: None
Personal:
Living: with family
Family History
Family History: Unable to obtain
Review of Systems
Review of Systems
Allergies reviewed?: Yes
Other source history: ambulance crew
All Other Systems: ROS reviewed and negative except as documented in HPI and ROS
Constitutional: Reports no symptoms
EENT: Reports no symptoms
Respiratory: Reports no symptoms
Cardiac: Reports chest pain
ABD/GI: Reports no symptoms
: Reports no symptoms
Musculoskeletal: Reports no symptoms
Skin: Reports no symptoms
Neurological: Reports no symptoms
Endocrine: Reports no symptoms
Hematologic/Lymphatic: Reports no symptoms
Psychiatric: Reports anxiety
Phy Exam
General Physical Exam
General Presentation: moderate distress
General age: appears stated age
General Skin: warm and dry
General Habitus: normal
General Mental: alert
General Hydration: appears well hydrated
ENT Exam
ENT Exam: EOMI, pharynx normal, neck supple and normocephalic
Eye Exam
Eye Exam: PERRL, cornea clear and conjunctiva normal
Cardiovascular Exam
Cardiovascular Exam: regular rate/rhythm
Pulmonary Exam
Pulmonary Exam: lungs clear, no respiratory distress, no rales, no crackles, no rhonchi, no stridor, no wheezing and no cough
Gastrointestinal Exam
Gastrointestinal Exam: normal bowel sounds, non tender, soft, no organomegaly, no pulsatile mass and non distended
Neurological Exam
Neurological Exam: alert and oriented x3
Musculoskeletal Exam
Musculoskeletal Exam: full ROM
Skin Exam
Skin Exam: normal color and diaphoresis
Psychiatric Exam
Psychiatric Exam: normal mood/affect
Scores
Heart Score for Chest Pain Patients
STEMI patient?: Yes
Course
Orders/Labs/Results
Orders:
Orders
09/23/24 04:41
Electrocardiogram (*1) Urgent
Reason for Study: Chest Pain
Cardiac Monitoring- Treatment ONCE
EKG- Treatment ONCE
IV Insert/Care/Rem.- Treatment PRN
O2 Therapy [RESP] Urgent
Titrate/Wean O2 to maintain O2 sat greater than (%): 90
Special Instructions: Maintain sats >/=90%
Pulse Ox/spot Check [RESP] Urgent
Quantity: 1
Special Instructions: ON ROOM AIR
09/23/24 04:50
Cardiovascular Evaluation Urgent
Comment: ADD ON
Complete Blood Count/With Diff Urgent
Comprehensive Metabolic Panel Urgent
Glycohemoglobin (HgbA1c) Urgent
Troponin I Urgent
09/23/24 04:53
Bivalirudin [Angiomax] 64 mg 0.9% Sodium Chloride 50 ml [Nss] 45 ml IV NOW
09/23/24 04:58
Midazolam HCl [Versed] 2 mg .ROUTE .STK-MED ONE
Verapamil Injectable [Isoptin/Verapamil Injection] 5 mg .ROUTE .STK-MED ONE
09/23/24 04:59
Fentanyl Citrate/Pf [Sublimaze] 100 mcg .ROUTE .STK-MED ONE
Heparin 10,000 units .ROUTE .STK-MED ONE
Heparin 1000 Units/500 ml [Heparin] 1,000 units in 500 ml .ROUTE .STK-MED
Heparin Sodium,Porcine/Ns/Pf [Heparin 2000 Units/1000 ml] 2,000 unit in 1,000 ml .ROUTE .STK-MED
Nitroglycerin [Tridil] 1,500 mcg .ROUTE .STK-MED ONE
09/23/24 05:00
Bivalirudin [Angiomax] 250 mg 0.9% Sodium Chloride 50 ml [Nss] 45 ml IV ORDERED RATE
09/23/24 05:10
Bivalirudin [Angiomax] 250 mg .ROUTE .STK-MED ONE
09/23/24 05:30
Lidocaine HCl/Pf [Xylocaine-Mpf 1% Vial] 50 mg .ROUTE .STK-MED ONE
09/23/24 05:32
NORepinephrine 4 MG/250 ML [Levophed] 4 mg in 250 ml .ROUTE .STK-MED
09/23/24 Breakfast
Cholesterol Lowering
At Your Request: Full Participation
Cholesterol Lowering: Sodium, 2 Gram
09/23/24 06:01
Clopidogrel Bisulfate [Plavix] 600 mg .ROUTE .STK-MED ONE
09/23/24 06:30
Admit Patient As Directed
Co-Sign Provider:
Level of Care: Inpatient admission
Assign to:: IVU
Physician / Group: Noman/MARY JANE
Diagnosis: Anterior STEMI.
Patient Condition: Serious
Reason for Hospitalization: Anterior STEMI.
Expected length of stay greater than two midnights?: Yes
ELOS- Estimated Length of Stay in days: 3
I certify the patient meets the requirements for IP care: Yes
Reason for Overnight Stay: Standard of Care
Electrocardiogram (*1) Urgent
Reason for Study: Other
Other Reason for Exam: s/p intervention
Code Status As Directed
Resuscitation Status: Full Code
CARDIAC REHAB CONSULT Routine
Co-Sign Provider:
Cardiac Rehab & Exercise Evaluation Referral
Type of Cardiac Rehab Referral: Outpatient
Diagnosis: STEMI
Date of Diagnosis/Surgery: 09/23/2024
Referring Provider: Ricky Tineo
[facility]ensive Cardiac Rehab Exercise Prescription
The above named person is capable of participating in an intensive cardiac rehab exercise therapy program
under the guidance of the [facility] cardiac rehab staff, outpatient registered dieticians and
supervision of a physician.
ICR Program Objectives:
Provide supervised exercise, cooking classes, nutritional counseling and healthy mind-set education to
improve the function/symptom free work capacity to an optimal level as well as control risk factors to
prevent the progression of heart disease. During the supervised exercise therapy session some or all of
the following may be included in the cardiac rehab session: ECG telemetry, BP, heart rate, rate of
perceived exertion, symptoms/tolerance, cholesterol testing and education. Exercise modalities may
include: treadmill, upright or recumbent bike, spin bike, rowing machine, elliptical, recumbent
elliptical, arm-bike machine, recumbent stepper and free weights.
Intensity:
All CR staff will use ACSM guidelines: Most patients will exercise in the following range: Heart Rate
[place] range of 40% to 80% & Oxygen Uptake reserve range 40-80% (VO2R). Peak heart rate and VO2 are
derived from the cardiac rehab submaximal graded exercise test at RPE of 13/14 out of 20. Initial
intensity range: RPE 11 to 14/20 and may expand to 11 to 16/20.
Duration & Frequency:
If appropriate the patient will be progressed up to 40 minutes of exercise therapy. Patients will be
instructed to come three times a week in cardiac rehab and at a home/other gym to achieve optimal
physical activity/exercies i.e. 4000-10,000 steps per day.
Education:
The patient will receive one-on-one education during their orientation, initial exercise evaluation, ITP
reassessments and discharge session. Each exercise session will also include an education class (30-40
minutes).
0.9% Sodium Chloride 1000 ml [Nss] 1,000 ml IV PER PROTOCOL
Infusion rate in mL/kg/hr:: 1.5
Infusion rate in mL/hr:: 127
Duration of infusion (hours):: 5
Acetaminophen [Tylenol] 650 mg PO Q4HPRN PRN
Fentanyl Citrate/Pf [Sublimaze] 25 mcg IV [id number] PRN
Midazolam HCl [Versed] 1 mg IV Q5MPRN PRN
Morphine Sulfate 2 mg IV Q1HPRN PRN
Nitroglycerin Sublingual [Nitrostat (Sublingual)] 0.4 mg SL [id number] PRN
Oxycodone/Acetaminophen [Percocet 5/325] 1 tablet PO Q4HPRN PRN
Activity As Directed
Activity Level: Out of Bed- Chair
Comment: bed/chair rest for 2 hours then out of bed ad fidelia
Side Door Worker Procedure As Directed
Cardiac Cath Procedure: percutaneous coronary intervention
Intake/ Output As Directed
Frequency: Per unit guidelines
Notify MD As Directed
Notify physician if: immediately for chest pain or bleeding from access site(s)
Radial Artery Hemostasis Method As Directed
Instructions:: 3 mL out at 2 hour posts placement of band
3 mL out at 2 1/2 hours post placement of band
3 mL out at 3 hours post placement of band
Off at 3 1/2 hours post placement of band
If any oozing or hemotoma occurs:: re-inflate band and call provider
Site Checks As Directed
Check access site for bleeding/hematoma: Yes
Comment: on arrival, Q15min x4, Q30min x2, Q1 hr x2, Q2 hr x2, Q4 hr or per
protocol
Vascular Checks As Directed
Location: distal to access site - pulse check
Frequency: Other
Comment: on arrival, Q15min x4, Q30min x2, Q1 hr x2, Q2 hr x2, Q4 hr or per protocol
Venous Foot Pumps As Directed
Location: Bilateral feet
Vital Signs As Directed
Frequency: Other
Additional Instructions:: on arrival, Q15min x4, Q30min x2, Q1 hr x2, Q2 hr x2, then Q4 hr or per unit
protocol
PRN Pain Medication Management As Directed
May give lesser potent ordered pain med per pt: Yes
preference::
Protocol:: Medication orders for pain may be administered in a
manner that supports deferring to patient preference
when the pt is:
- Requesting an ordered lesser potent pain medication.
Least to most potent pain medications are defined
as: acetaminophen < NSAID < tramadol < opioids
(morphine, oxycodone, hydromorphone).
- Requesting a lesser dose of the same medication IF
ORDERED.
- Requesting a less intrusive route of administration
if both routes are prescribed by the provider (PO <
IV).
09/23/24 06:31
DX Deep Vein Thrombosis Video Routine
09/23/24 06:32
Activity As Directed
Activity Level: Bedrest
Comment: refer to hemostasis device used for bedrest duration, then ambulate ad fidelia
Femoral Artery Hemostasis Method As Directed
Procedure performed:: Percutaneous Coronary Int
Type of femoral hemostasis method used:: Internal Closure Device
Duration of bedrest (hours):: 3
Call provider if:: hematoma present after hemostasis achieved
Head of Bed-Restrictions As Directed
Comment: may elevate head of bed 30 degrees
09/23/24 06:[address] Non Medication Order As Directed
Physician Order: Please allow the bivalirudin gtt to run to completion but do not renew.
Above order entered?: Yes
09/23/24 07:00
Echo 2D MMode Color/Doppler IN AM
Reason for Study: Anterior STEMI.
Flush (0.9% Sodium Chloride) [Flush (Nss)] See Dose Instructions IV PER PROTOCOL
09/23/24 08:00
Aspirin Chewable [Low Strength Aspirin] 81 mg PO DAILY
Clopidogrel Bisulfate [Plavix] 75 mg PO DAILY
09/24/24 03:48
Basic Metabolic Panel IN AM
Complete Blood Count/No Diff IN AM
09/24/24 06:00
Electrocardiogram (*1) IN AM
Reason for Study: Other
Other Reason for Exam: s/p intervention
09/25/24 06:00
Basic Metabolic Panel IN AM
Complete Blood Count/No Diff IN AM
09/26/24 06:00
Basic Metabolic Panel IN AM
Complete Blood Count/No Diff IN AM
Abnormal Lab Results
09/23/24
04:50
RBC 3.32 L 10^6/uL
(4.70-6.10)
Hgb 9.9 L g/dL
(13.0-18.0)
Hct 30.0 L %
(39.0-52.0)
RDW 16.0 H %
(11.5-14.5)
Absolute Monos (auto) 0.8 H 10^3/uL
(0.1-0.6)
BUN 21 H mg/dl
(9-20)
Glucose 144 H mg/dl
(70-99)
Hemoglobin A1c 6.2 H %
(4.0-5.6)
Alkaline Phosphatase 142 H U/L
(38-126)
Troponin I 0.332 H* ng/ml
09/23/24 04:50
09/23/24 04:50
Vital Signs
Initial and Last Documented VS:
Initial Vital Signs
BP
146/59
09/23/24 04:39
Last Documented Vital Signs
Temp Pulse Resp BP Pulse Ox
98.5 F 79 16 101/78 96
09/24/24 19:45 09/24/24 21:00 09/24/24 20:07 09/24/24 18:29 09/24/24 20:07
*Pulse Oximetry
Patient hypoxic: no
*Critical Care Note
Total Time (30-74mins, 75-104mins- exclusive of procedures): 45 (Critical care statement: A total of 45 minutes of critical care time was provided for this patient. This time is separate from time utilized to perform the aforementioned documented
procedures. Aggregate critical care time includes only time during which I was engaged in work directl)
Update Note
Update Note:
Patient off Eliquis for A-fib. He had GI bleed.
Patient stated that he could not take heparin because 'it turned his arm black '. After brief review of the chart, it seems that he infiltrated at the IV site. Patient is unsure.
Spoke with Dr. Cabrera, ordered sunitarudin
ED Attending Note
-
Portions of this chart may have been created with voice recognition software.� Occasional wrong word or��sound alike� substitutions may have occurred due to the inherent limitations of voice recognition software.
Discharge Plan
Departure
Patient Disposition: IMPROVEMENT ENGINEER
Date of Disposition: 09/23/24
Time of Disposition: 05:15
Admit to: lab scientist
Presentation/result/management discussed w/ accepting MD/DO: Noman
Discharge Problem:
ST elevation (STEMI) myocardial infarction
Interventions
Interventions:
*General Assessment Last Done: 09/23/24 04:46
*Neglect/Abuse Screening Last Done: 09/23/24 04:46
*ED- Fall Risk Assessment Last Done: 09/23/24 04:46
*Nursing Disposition Last Done: 09/23/24 05:32
ED- Cardiac Assessment Last Done: 09/23/24 04:46
Discharge Date and Time
Discharge Date/Time: 09/23/24 05:33
[2024-09-23 04:57] LABS: % Basophils 0.7 % (0-2); % Eosinophils 2.8 % (0-6); % Immature Granulocytes 0.3 % (0-0.5); % Lymphocytes 27.6 % (20.5-51.1); % Monocytes 8.7 % (1.7-9.3); % Neutrophils 59.9 % (42.2-75.2); Absolute Basophils 0.1 10^3/uL (0-0.2); Absolute Eosinophils 0.3 10^3/uL (0-0.7); Absolute Lymphocytes 2.4 10^3/uL (1.2-3.4); Absolute Monocytes 0.8 10^3/uL (0.1-0.6); Absolute Neutrophils 5.3 10^3/uL (1.4-6.5); Hemoglobin 9.9 g/dL (13.0-18.0); Mean Corpuscular Hgb 29.8 pg (27.0-31.0); Mean Corpuscular Volume 90.4 fL (80.0-94.0); Mean Platelet Volume 9.6 fL (7.4-10.4); Nucleated Red Blood Cells % 0 % (-); Platelet Count 228 10^3/uL (130-400); Red Blood Cell Count 3.32 10^6/uL (4.70-6.10); White Blood Cell Count 8.9 10^3/uL (4.8-10.8)
[2024-09-23] MEDS: ANGIOMAX 50 MG IV (05:02)
--- NOTE | 2024-09-23 05:12 | HPS.HSE ---
Family Physician
-
Family Physician: Jessica Do
Chief Complaint
-
Chest pain.
History of Present Illness
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
now presenting with chest pain that developed overnight, two hours prior to presentation, described as pressure. EMS was called and prehospital EKG showed NSR with RBBB with anterior STEMI. The patient received nitroglycerin with improvement in
chest pain. STEMI team was activated.
The patient reports a previous adverse event with IV heparin (his arm became ecchymotic/black, non-painful), likely infiltration, however he was told to never take heparin again.
Of note, the patient has had several admissions over the past several months. He was admitted from 06/15/2024 - 06/23/2024 with hypoxic respiratory failure with MSSA PNA/bacteremia complicated by acute HFpEF and PAF and NSTEMI (troponin to 8) which
was felt to be type 2 from his acute presentation and lack of chest pain. LVEF 55% with apical hypokinesis. He was started on apixaban and completed a two week course of antibiotics. MAYRA was negative for infectious endocarditis.
He was readmitted from 08/06/2024 - 08/10/2024 after outpatient labs showed acute anemia associated with increasing fatigue. He was found to have heme + dark brown stool. Anticoagulation was held and he was transfused 2 units of PRBC's. EGD showed
a single bleeding angioectasia with blood in the duodenum. The duodenal angioectasia was treated with APC and clip. H/H stabilized. Anticoagulation was restarted with a plan for outpatient colonoscopy, possible pill endoscopy.
The patient was admitted again for symptomatic anemia from 08/22/2024 - 08/28/2024. The patient was found to have recurrent fatigue and melena. H/H showed that Hbg had fallen from 8.1 to 7.0. Apixaban was held indefinitely. Colonoscopy was
performed, showing three polyps requiring removal (combination hot/cold forceps/snare), a biopsy of a lipomatous ileocecal valve, non-bleeding internal hemorrhoids and diverticulosis. EGD was repeated, showing a suspicious, ulcerative mass with
stigmata of recent bleeding in the oropharynx. ENT was consulted and performed laryngoscopy. Biopsy and hemostasis was performed on a pedunculated, purplish lesion in the right side of the larynx. The patient required significant attention for
hemostasis of the lesion, including local vasoconstrictors and Bovie cautery.
Given his recent issues with bleeding and adverse reaction to heparin, the patient was given aspirin and bivalirudin. Clopidogrel/ticagrelor was held to avoid committing to DAPT prior to coronary angiography.
Medical History
Past Medical History
Past Medical History: Reports Asthma, CHF (Chronic HFpEF), HTN, Hypercholesterolemia and Other (GIB - )
Past Surgical History: Reports Cholecystectomy and Other (EGD/Colonoscopy; Laryngoscopy with biopsy.)
Social History
Unable to obtain full social history at this time due to: Acuity
Tobacco: Non-smoker
Alcohol: None
Drug: None
Living: Alone
Employment: Retired
Family History
Family History: Not pertinent
Allergies / Home Medications
Allergies reflects when Allergies were last updated in [employer].
Home Medications with original date entered in [employer]
Allergy/Medication List:
Home Medications:
Levothyroxine 50 mcg daily.
Montelukast 10 mg daily.
Allopurinol 300 mg daily.
Albuterol QID PRN.
Fluoxetine 20 mg BID.
Atorvastatin 40 mg daily.
Diltiazem 240 mg daily.
Pantoprazole 40 mg daily.
Fluticasone/Salmeterol 230/21 mcg BID.
Metamucil gummy, 3 PO daily.
Furosemide 20 mg daily.
Allergies:
NKDA.
Review of Systems
-
History Source: Patient
A 12 point ROS was completed and negative except as noted: Yes
Constitutional: Reports No Symptoms
EENT: Reports No Symptoms
Respiratory: Reports Trouble Breathing
Cardiac: Reports Chest Pain
Abdomen/GI: Reports No Symptoms
: Reports No Symptoms
Musculoskeletal: Reports No Symptoms
Physical Exam
Vital Signs
Vital Signs
Temp Pulse Resp BP Pulse Ox
36.8 C 80 26 127/71 100
09/23/24 04:46 09/23/24 04:58 09/23/24 04:58 09/23/24 04:58 09/23/24 04:58
Physical Exam
General: Well Developed, Well Nourished and Conversant
HEENT: NormoCephalic, Anicteric, Moist mucous membranes, Atraumatic, PERRLA, No Ptosis, Nose Appears Normal, Ears Appear Normal and Deaf (Right side.)
Respiratory: Clear and Non Labored Respirations
Cardiac: S1/S2 and Regular Rhythm
Breast: Deferred by me
GI: Soft, Non Tender, Non Distended and Normal Bowel Sounds
Rectal: Deferred by Provider
Genito-urinary: Deferred by me
Musculoskeletal: No Clubbing, No Cyanosis and No Edema
Skin: Warm and Dry
Neuro: AO x 3
Hematologic/Lymphatic: No Lymphadenopathy
Psych: Calm and Intact Judgment/Insight
Laboratory Results
-
09/23/24 04:50
Data Reviewed
-
Diagnostic Radiology: Report Reviewed by me
CT Scan: Report Reviewed by me
MRI: Report Reviewed by me
Medical Tests (Nuc Med, Echo, EKG etc): Report Reviewed by me
Lab Data: Labs Reviewed by me
Old Records: Reviewed
Impression/Plan
-
Impression/Plan: 79 y/o male with PMHx notable for PAF, HTN, HLD, asthma and depression, multiple recent admissions for MSSA PNA/bacteremia, acute GIB (first due to duodenal angioectasia) due to suspected oropharyngeal lesion/bleeding (pathology
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
#Anterior STEMI
-Acute, threat to life.
-Patient given aspirin in ER.
-Adverse prior reaction to heparin. Patient was instructed to avoid heparin in the future. Bivalirudin started in ER. P2Y12 inhibitors held pending angiography given bleeding risk.
-Plan for emergent LHC/coronary angiography/ad hoc PCI. Consent signed and on the chart.
-Further instructions to follow.
#HTN
-Chronic.
-Antihypertensive medications on hold at this time.
-Resume post procedure as indicated.
#HLD
-Chronic.
-Now has an indication for high dose, high potency statin.
-Start atorvastatin 40 mg daily.
-Goal LDL < 55.
#PAF
-Seen in the context of PNA/bacteremia.
-Currently in NSR with ventricular bigeminy.
-Rate/rhythm control at home with diltiazem. We will likely transition to metoprolol given ACS.
-CHADS2-Vasc = at least 5 (CHF, HTN, Age x2, Vascular Disease, stroke?).
-Anticoagulation on hold in light of recent blood loss anemia.
#GIB
-Recent, currently controlled.
-S/P APC + clip of duodenal angioectasia.
-S/P biopsy of laryngeal lesion. 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
-Close monitoring of H/H.
#Asthma
-Chronic, stable.
-Restart home bronchodilators (fluticasone/salmeterol) and beta agonists PRN.
[2024-09-23 05:22] LABS: ALT (SGPT) 17 U/L (0-50); AST (SGOT) 22 U/L (17-59); Albumin 3.9 g/dl (3.5-5.0); Alkaline Phosphatase 142 U/L (38-126); Blood Urea Nitrogen 21 mg/dl (9-20); Calcium 9.4 mg/dl (8.4-10.2); Carbon Dioxide 30 mmol/L (22-30); Chloride 100 mmol/L (98-107); Estimated Creatinine Clearance 50 ml/min; Glucose 144 mg/dl (70-99); Potassium 3.9 mmol/L (3.5-5.1); Sodium 140 mmol/L (135-145); Total Bilirubin 0.5 mg/dl (0.2-1.3); Total Protein 6.5 g/dl (6.3-8.2); eGFR > 60.00
[2024-09-23 05:25] LABS: Troponin I 0.332 ng/ml
[2024-09-23] MEDS: LOW STRENGTH ASPIRIN 81 MG PO (08:54)
[2024-09-23] MEDS: NSS 1000 IV (08:55)
[2024-09-23] MEDS: PLAVIX PO (10:56)
[2024-09-23 11:00] LABS: HDL Cholesterol 51 mg/dl; LDL Cholesterol, Calculated 34 mg/dl; Total Cholesterol 100 mg/dl (50-199); Triglyceride 79 mg/dl (10-149); Very Low Density Lipoprotein 15 mg/dl (0-30)
--- NOTE | 2024-09-23 11:18 | ITS.CL.ANGIO ---
[facility] - Angioplasty
Angioplasty
Procedure Report:
CARDIAC CATHETERIZATION REPORT
Date of Procedure: 09/23/2024
Referring: Bobby Pat D.O.
INDICATION: Anterior ST elevation myocardial infarction.
PROCEDURE:
1. Left heart catheterization.
2. Coronary angiography.
3. Intravascular ultrasound.
4. Successful PCI of the left anterior descending artery.
A total of 67 minutes of procedural/moderate sedation was utilized. An independent medical front desk coordinator was present to assist with and help manage the patient's level of consciousness and physiologic status.
ACCESS:
1. 6 [place] right radial artery using a modified Seldinger technique�unable to pass a catheter due to severe vessel loop in the antecubital fossa.
2. 6 [place] right superficial femoral artery (essentially no common femoral artery due to extremely high bifurcation) using a modified Seldinger technique with a micropuncture kit under ultrasound guidance. Ultrasound image obtained.
CATHETERS:
1. 5 [place] JR4.
2. 5 [place] JL 3.5.
3. 6 [place] EBU 3.75 guiding catheter.
HEMODYNAMIC DATA
Weight (kg): 84.4
AO (s/d/x, mmHg): 112/58/80
LV (s/x mmHg): 125/12
AV gradient (x, mmHg): 12.3
LEFT VENTRICULOGRAPHY: Not performed.
CORONARY ANGIOGRAPHY
Dominance: Right.
Left Main: Normal size, trifurcating vessel. There is no coronary artery disease.
LAD: Large size vessel giving rise to 1 significant diagonal. The LAD is acutely occluded by thrombus in its proximal/midportion with thrombus in the LAD proper immediately after the diagonal with some propagation into the origin of the diagonal
artery itself. There is a 70% lesion in the origin of the diagonal. There is a 60% lesion in the mid third of the diagonal.
Ramus: Large size, bifurcating vessel that supplies the majority of the anterolateral wall. There is no coronary artery disease.
Circumflex: Small to medium size, nondominant vessel with 1 obtuse marginal. There is no coronary artery disease.
RCA: Large size, dominant vessel with a significant posterolateral arcade that supplies the majority of the inferolateral wall. There is no significant coronary artery disease.
INTERVENTION(S)
1. Successful IVUS guided PCI of the proximal/mid LAD (Medtronic [place] 3.0 x 15 ELEANOR, postdilated with a 3.0 NC balloon throughout and a 3.25 x 8 NC balloon in the proximal and mid stent), jailing the origin of D1, with reduction in LAD
stenosis to 0%, resulting in a 90% lesion of the ostium of D1 due to unfavorable plaque shift but restoring SABINE-3 flow in the LAD and maintaining SABINE-3 flow in the diagonal.
Narrative:
The decision was made to proceed with percutaneous coronary intervention. The diagnostic catheter was removed over a wire and a 6Fr EBU 3.75 guiding catheter was advanced to the aortic root and seated in the left main coronary artery. Additional
heparin was given and a Power Turn Flex wire was advanced into the first diagonal. A BMW wire was advanced into the proximal LAD but would not traverse the thrombotic occlusion of the LAD. The BMW wire was withdrawn and a whisper wire was
advanced. The whisper wire made more progress in the BMW wire, but still struggle to cross the LAD lesion. A microcatheter was advanced over the whisper wire for support. With this micro catheter, we were able to redirect the wire to a more
suitable angle and the whisper wire was able to pass with relative ease. The quick cross microcatheter was advanced into the mid LAD and the whisper wire was removed. Low-volume angiography was performed, confirming intraluminal presence of the
microcatheter. The BMW wire was advanced into the distal LAD through the microcatheter which was then removed using a wire pinning technique. The proximal/mid LAD lesion was predilated with a 2.0 x 12 semi-compliant balloon to 12 chandan, restoring
SABINE-3 flow. The semi-compliant balloon was removed and a Medtronic [place] 3.0 x 15 drug-eluting stent was advanced. The stent was deployed at 12 atmospheres. The stent balloon was removed.
The decision was made to perform intracoronary imaging. An IVUS catheter was advanced through the guiding catheter and into the ostium of the artery. Ring down was performed once the imaging crystal was no longer inside of the guiding catheter. The
IVUS catheter was advanced into the mid LAD. Intravascular ultrasound was performed in a retrograde fashion using a slow pullback. Intracoronary imaging demonstrated good stent apposition throughout the entire stented segment with some mild
underexpansion in the mid stent. Vessel measurements were taken distal and proximal to the stented segment for post dilation sizing.
A 3.0 x 12 noncompliant balloon was advanced into the stent and the stent was postdilated to 14 chandan in the distal stent and 18 atmospheres in the proximal stent. The noncompliant balloon was removed and a 3.25 x 8 NC balloon was advanced into the
LAD stent which was subsequently postdilated to 15 chandan in the proximal stent.
IVUS was repeated and demonstrated improved stent apposition and expansion with a small amount of residual underexpansion in the mid stent. They 3.25 x 8 noncompliant balloon was reinserted and inflated to 18 chandan in the mid stent. The noncompliant
balloon was withdrawn.
Angiography was performed in orthogonal views, confirming good stent expansion and an excellent angiographic result in the LAD. The stent jailed the origin of the first diagonal. Plaque shift from the PCI resulted in a worsening of the ostial
diagonal stenosis from 70% to 90%. SABINE-3 flow was maintained in the vessel. Given the patient's recent bleeding issues and the potential need to discontinue antithrombotic therapy in the near future, combined with the presence of SABINE-3 flow in
the diagonal, I opted not to treat this lesion to avoid a 2 stent bifurcation PCI strategy, which would increase his risk for stent thrombosis. The BMW wire was pulled back from the LAD and redirected into the diagonal through the stent struts with
relative ease. The power turn flex wire was pulled back from the diagonal wire and redirected into the LAD, demonstrating that both vessels were easily re-accessible percutaneously. The coronary wire was withdrawn and the guide was disengaged from
the artery. The catheter was removed over a standard J-wire.
Closure Device: 6 [place] Angio-Seal for the right common femoral artery, vascular band for the right radial artery.
Radiation (mGy): 1185.64
DAP (cm2.Gy): 90.3324
Fluoroscopy time (minutes): 16.5
CONCLUSIONS
1. Acute anterior ST elevation myocardial infarction.
2. Right dominant circulation with an acute, thrombotic occlusion of the proximal/mid LAD with propagation of the thrombus into the ostium of D1, a 70% lesion in the origin of D1 and a 60% lesion in the mid third of D1, status post successful IVUS
guided PCI of the LAD occlusion (Medtronic [place] 3.0 x 15 ELEANOR, postdilated with a 3.0 NC balloon throughout and a 3.25 NC balloon in the proximal and mid stent), jailing the ostium of D1 and resulting in a 90% lesion in the origin of D1 but
restoring SABINE-3 flow in the LAD proper and maintaining SABINE-3 flow in D1.
3. Normal filling pressures (LVEDP = 12 mmHg at 84.4 kg).
4. Likely mild aortic valve stenosis based on pressure gradient at pullback.
RECOMMENDATIONS:
1. Expectant management after cardiac catheterization via right radial and right common femoral approach.
2. Limited weight bearing on the right wrist for one week.
3. The patient was given aspirin in the emergency room and loaded with clopidogrel 600 mg after PCI. We will allow the bivalirudin drip to complete to allow some overlap and conversion of clopidogrel to his active metabolite.
4. The patient has significant history of recent GI bleed as well as atrial fibrillation prompting extreme caution with antiplatelet therapy and anticoagulation.
5. Monitor telemetry for any recurrence of atrial fibrillation.
6. Convert diltiazem to metoprolol in light of coronary artery disease.
7. Aggressive secondary prevention with high-dose, high potency statin. Goal LDL <55.
8. Echocardiogram ordered and pending.
9. Referral to cardiac rehab.
Copy to: Bobby Tucker M.D., Jessica Do D.O., Bobby Pat D.O.
Ricky Tineo DO, FACC, FACP
--- NOTE | 2024-09-23 11:20 | PTCARENOTE ---
Received patient from the chemical lab supervisor at change of shift this morning. Radial band was in place right wrist, no bleeding or hematoma noted. Right groin dressing is dry and intact. Patient maintained bedrest x 3 hours, now radial band removed, dressing
applied and activity restrictions completed. Patient complaining of intermittent chest discomfort radiating to his back 07/27, noted to have 3 runs of VT on telemetry, patient was asymptomatic. Notified Dr. Tineo, clarified plavix order (patient
received loading dose in lab) and will start beta blayne. Patient in good spirits, daughters at the bedside, call damon in reach.
[2024-09-23 11:38] LABS: Glycohemoglobin (HgbA1c) 6.2 % (4.0-5.6)
--- NOTE | 2024-09-23 11:45 | CON.VAS ---
Addendum entered and electronically signed by Tan Ivan MD 09/23/24 13:22:
Seen and examined with SHARRI Wiley and SHARRI Tony. Agree with findings as noted below. Bleeding from right groin after getting up to go to the bathroom (Angio-Seal closure following coronary catheter via right femoral artery access). Manual pressure
had been applied once again and hemostasis achieved. When I saw patient he was lying flat. He is in no acute distress. Not complaining of any significant discomfort. Vital signs as reviewed in charting and on monitor. Systolic blood pressure in
low 100s. Abdomen soft, nondistended, nontender. Right groin is flat currently. No significant hematoma. No pulsatile mass. Right foot is warm with palpable pedal pulses. Duplex reviewed. No evidence of pseudoaneurysm. Plan/as discussed and
noted below. Likely Angio-Seal popped following movement. No active pseudoaneurysm. Recommend flat bedrest 4 to 6 hours and then can mobilize. Close monitoring. I will sign off. Please call with questions.
Original Note:
Consultation
Consultation Request
Date/Time Consultation Performed: 09/23/2024 1145
Requesting Provider: Ricky Tineo MD
Performing Provider: KAYE UrrutiaC for Tan Ivan MD
Reason for Consultation: Right groin hematoma
Medical History
-
Chief Complaint: Right groin hematoma
History of Present Illness:
This is an 79-year-old male with significant past medical history for stroke, recent GI bleed, asthma, CHF, hypertension, hypercholesterolemia, and depression who presented to [facility] ED this morning as a STEMI, subsequently was treated with
cardiac catheterization with PCI to LAD. Cardiac catheterization was performed via right femoral puncture and sealed using Angio-Seal device. He was recovering well until roughly 11:30 AM when he was noted to have acute right groin swelling
following ambulation with suspected bleeding from Angio-Seal. Vascular surgery was consulted for concern of active bleeding from femoral artery puncture site. We were notified immediately by attending Dr. Tineo, and responded to bedside.
Currently patient is stable and awake and alert and oriented x 3. He denies abdominal pain but does endorse discomfort at right groin, given nurse is actively placing pressure on hematoma site. Vital signs stable. Denies lightheadedness, nausea,
vomiting, chest pain, and abdominal pain.
Past Medical History
Past Medical History: Arrhythmias (Proximal atrial fibrillation), Asthma, CHF (Chronic HFpEF), CVA, HTN, Hypercholesterolemia and Other (GI bleed)
Past Surgical History: Cholecystectomy and Other (EGD/Colonoscopy; Laryngoscopy with biopsy)
Social History
Tobacco: Non-Smoker
Allergies / Home Medications
Allergy/AdvReac Type Severity Reaction Status Date / Time
No Known Allergies Allergy Verified 06/15/24 16:44
�Medication �Instructions �Recorded �Confirmed �Type
albuterol sulfate 90 mcg/actuation 2 puff inhalation R QIDPRN PRN sob 04/16/24 08/22/24 History
aerosol inhaler
allopurinol 300 mg tablet 300 mg PO DAILY Gout 04/16/24 08/22/24 History
fluoxetine 20 mg capsule 20 mg PO BID Mental Health/Anxiety 04/16/24 08/22/24 History
levothyroxine 50 mcg tablet 50 mcg PO DAILY Thyroid 04/16/24 08/22/24 History
(Synthroid)
montelukast 10 mg tablet 10 mg PO HS Allergies 04/16/24 08/22/24 History
(Singulair)
atorvastatin 40 mg tablet 40 mg PO QPM #30 tabs 06/23/24 08/22/24 Rx
diltiazem HCl 240 mg 240 mg PO DAILY #30 caps 06/23/24 08/22/24 Rx
capsule,extended release 24 hr
Metamucil Gummy 3 gummy PO DAILY Constipation 08/06/24 08/22/24 History
fluticasone propionate 230 2 puff inhalation R BID 08/06/24 08/22/24 History
mcg-salmeterol 21 mcg/actuation Lung/Breathing Issues
HFA inhaler (Advair HFA)
furosemide 40 mg tablet 20 mg PO DAILY Fluid 08/06/24 08/22/24 History
Retention/Swelling
pantoprazole 40 mg tablet,delayed 40 mg PO DAILY Gastrointestinal 08/06/24 08/22/24 History
release (Protonix) Issue
Review of Systems
-
History Source: Patient
Constitutional: Reports No Symptoms
EENT: Reports No Symptoms
Respiratory: Reports No Symptoms
Cardiac: Reports No Symptoms
Abdomen/GI: Reports Other (Right groin hematoma); Denies Abdominal Pain, Nausea or Vomiting
: Reports No Symptoms
Musculoskeletal: Reports No Symptoms
Skin: Reports No Symptoms
Neurological: Reports No Symptoms
Endocrine: Reports No Symptoms
Physical Exam
Vital Signs
Temp Pulse Resp BP Pulse Ox
98.1 F 66 18 115/59 97
09/23/24 11:23 09/23/24 12:05 09/23/24 11:23 09/23/24 12:05 09/23/24 11:23
Lab Results
09/23/24 11:44
09/23/24 04:50
Troponin I Cancelled 09/23/24 18:45
Physical Exam
General: No Apparent Distress and Comfortable
HEENT: Normocephalic, Anicteric and Atraumatic
Respiratory: Non Labored Respirations
Cardiac: Negative JVD
GI: Soft, Non Tender, Non Distended and Other (Right groin with moderate size hematoma, vastly improved with pressure being held no evidence of expanding hematoma)
Musculoskeletal: No Edema
Skin: Warm
Neuro: AO x 3
Assessment / Plan
-
Assessment: 79-year-old male status post PCI for STEMI with concern for right groin hematoma following ambulation
Plan:
CVICU nursing staff actively holding right groin manual pressure, would recommend to hold for at least 20 minutes
Patient with elevated creatinine we will obtain stat ultrasound to rule out pseudoaneurysm or active bleeding
Stat hemoglobin
Plan reviewed with attending Dr. Tan Ivan M.D. who agrees
[2024-09-23 11:59] LABS: Hematocrit 28.2 % (39.0-52.0); Hemoglobin 8.9 g/dL (13.0-18.0); Mean Corp Hgb Conc. 31.6 g/dL (33.0-37.0); Mean Corpuscular Hgb 29.1 pg (27.0-31.0); Mean Corpuscular Volume 92.2 fL (80.0-94.0); Platelet Count 231 10^3/uL (130-400); Red Blood Cell Count 3.06 10^6/uL (4.70-6.10); Red Cell Dist. Width 16.2 % (11.5-14.5); White Blood Cell Count 9.6 10^3/uL (4.8-10.8)
--- NOTE | 2024-09-23 12:48 | PTCARENOTE ---
Patient maintained bedrest > 3 hours post cath and needed to use the bathroom. Farzaneh RN was assisting the patient to the bathroom at 1130 when the patient became lightheaded, and a large hematoma was noted at the right groin. Patient placed flat in
bed, BP 84/64. Manual pressure held on the right groin > 20mins, IV NS infusing wide open. Patient seen by CT surgery team and Dr. Tineo. Labs sent, ultrasound done at the bedside. No bleeding noted right groin, hematoma reduced- still noted to
have edema at pubic area. Monitoring VS, patient to remain on bedrest for 6 hours. Daughters at the bedside.
--- NOTE | 2024-09-23 13:13 | W.PN.UPDATE ---
Update Note
Progress Note Update
CTSP for growing hematoma right groin s/p PCI of LAD this morning. Patient hypotensive (SBP 70s). Manual pressure to right groin x 20 minutes. NSS open wide x 1 litre, Type and screen, CBC ordered. Dr Tineo notified. Consult to vascular surgery who
recommended US R groin to r/o retroperitoneal bleed. Study result negative. SBP WNL after IV fluids.
--- NOTE | 2024-09-23 14:49 | CM ---
Reviewed chart. Met with Mr. Landa to review discharge plans. He states prior to admission he resides with his daughter in a second floor condo with fourteen steps to enter. He states prior to admission he is independent with ambulation and adls.
He states he has a rollator at home to use when needed. He states he has a rollator and shower chair at home. He states he had [facility] in the past just stopped service last week. He states he was also in [facility] for SNF[facility] Rehab. in the
past. He states he has a prescription plan and also has [facility] prescription plans. Will need to see his current functional level to see if he will have any skilled care needs. Medical work-up in progress. The discharge plan is to return home with
his daughter and [facility] when medically stable.
--- NOTE | 2024-09-23 17:22 | PTCARENOTE ---
Patient has been maintaining bedrest since [address] Tineo, until 1800. Right groin dressing is dry and intact, pubic area is firm but flat, mild tenderness with strong right pedal pulse palpated. Daughter at the bedside, call damon in reach.
[2024-09-23] MEDS: LIPITOR 40 MG PO (17:56)
[2024-09-23] MEDS: PROZAC 20 MG PO (19:34)
[2024-09-23] MEDS: ADVAIR HFA 230/21 MCG INHALER 2 PUFF INH (19:50)
[2024-09-23] MEDS: SINGULAIR 10 MG PO (22:33)
[2024-09-23 22:36] LABS: Hematocrit 24.1 % (39.0-52.0); Hemoglobin 7.8 g/dL (13.0-18.0); Mean Corp Hgb Conc. 32.4 g/dL (33.0-37.0); Mean Corpuscular Hgb 29.8 pg (27.0-31.0); Mean Platelet Volume 9.4 fL (7.4-10.4); Platelet Count 190 10^3/uL (130-400); Red Blood Cell Count 2.62 10^6/uL (4.70-6.10); Red Cell Dist. Width 16.2 % (11.5-14.5); White Blood Cell Count 8.1 10^3/uL (4.8-10.8)
[2024-09-23 22:54] LABS: Albumin 3.3 g/dl (3.5-5.0); Blood Urea Nitrogen 20 mg/dl (9-20); Calcium 8.9 mg/dl (8.4-10.2); Carbon Dioxide 31 mmol/L (22-30); Chloride 98 mmol/L (98-107); Estimated Creatinine Clearance 54 ml/min; Glucose 152 mg/dl (70-99); Magnesium 1.8 mg/dl (1.6-2.3); Phosphorus 3.2 mg/dl (2.5-4.5); Potassium 4.1 mmol/L (3.5-5.1); Sodium 135 mmol/L (135-145); eGFR > 60.00
[2024-09-24] VITALS (35 sets, daily range): BP systolic 96–124; BP diastolic 48–78
[2024-09-24] MEDS: PERCOCET 5/325 1 TABLET PO ×2 (00:40→22:55)
--- NOTE | 2024-09-24 01:15 | PTCARENOTE ---
At 21:20 pt had a 15 beat run of NSVT. Patient asymptomatic. BP 108/54. Denies any CP or palpitations during episode. Dr. Corley made aware, orders obtained for blood work and was updated w/ results via TT.
Right radial dressing C/D/I w/ positive pulse. Patient verbalized understanding in regards to activity restrictions. Right groin dressing intact. Site soft but tender to touch. B/l DP pulses palpable. Pubic area on pt's right side is puffy.
Vicente WONG PA at bedside, site marked by PA. Orders placed/ carried out for abd/pel CT scan. PRN Percocet administered for right groin discomfort. POC ongoing. Call damon within reach.
--- NOTE | 2024-09-24 02:45 | W.PN.UPDATE ---
Update Note
Progress Note Update
-came in to evaluate pt after spoke with Dr. Corley. Pt had an episode of NSVT at 9:20 pm. Labs were sent and Hg has trended down from 9.9 to 8.9, then to 7.8. Of note, pt received 1L of IVF earlier on 09/23 for R groin bleeding with hypotension.
When I saw him, he was pleasant, conversant, in no distress and hemodynamically stable (nsr 82 bpm, BP 105/61). R groin was soft, tender to touch with at least moderate hematoma (it appeared larger than what was described on groin US earlier as
small hematoma). No bruising at the groin, umbilicus or back. No back, flank or scrotum discomfort. DP pulses palpable 2+ b/l.
After discussion with Dr. Corley, Mr Landa underwent Abd/Pelvic CTA. It revealed large hematoma in the R groin tracking in the inguinal region along the spermatic cord, measuring approx 7.8 x 5 x 16 cm. There was a larger area of more ill-defined
soft tissue hematoma/stranding in this region. Within the hematoma collection there was a small focus of active extravasation of IV contrast. No retroperitoneal hematoma. R common femoral artery was patent without evidence for dissection or
pseudoaneurysm. Pt remained hemodynamically stable after CT study with BP 117/56 and hr high 70s-low 80s nsr.
Reviewed Abdom CT with Dr. Ivan. As long as pt remains hemodynamically stable and groin remains without change, he recommended to continue monitoring, bedrest, and re-check groin US in am (ordered).
Will re-check labs in am. Continue to monitor rhythm, ordered lower dose of Toprol 12.5 mg for am (after check groin US).
[2024-09-24] MEDS: MAGNESIUM SULFATE 102 GRAMS IV (03:28)
[2024-09-24 04:09] LABS: Hematocrit 22.7 % (39.0-52.0); Hemoglobin 7.4 g/dL (13.0-18.0)
[2024-09-24 04:10] LABS: Hematocrit 22.7 % (39.0-52.0); Hemoglobin 7.4 g/dL (13.0-18.0); Mean Corp Hgb Conc. 32.6 g/dL (33.0-37.0); Mean Corpuscular Hgb 29.5 pg (27.0-31.0); Mean Corpuscular Volume 90.4 fL (80.0-94.0); Mean Platelet Volume 9.9 fL (7.4-10.4); Platelet Count 193 10^3/uL (130-400); Red Blood Cell Count 2.51 10^6/uL (4.70-6.10); Red Cell Dist. Width 16.3 % (11.5-14.5); White Blood Cell Count 7.3 10^3/uL (4.8-10.8)
[2024-09-24 04:30] LABS: Blood Urea Nitrogen 20 mg/dl (9-20); Carbon Dioxide 31 mmol/L (22-30); Chloride 101 mmol/L (98-107); Estimated Creatinine Clearance 54 ml/min; Glucose 120 mg/dl (70-99); Potassium 4.3 mmol/L (3.5-5.1); Sodium 137 mmol/L (135-145); eGFR > 60.00
[2024-09-24] MEDS: SYNTHROID 50 MCG PO (07:09)
--- NOTE | 2024-09-24 07:09 | W.PN.CD ---
Today's Communication / Plan
-
Acute on chronic anemia right groin hematoma. Hemoglobin has dropped to 7.4. CT of abdomen and pelvis performed which showed some enlargement compared to prior ultrasound. CT PA has reviewed with vascular surgery. Patient currently feeling
better right groin hematoma present but area is soft. There is appropriate level of tenderness
-Transfuse PRBCs. Patient consented.
-Additional assessment by vascular surgery this morning
= Patient remains on antiplatelet therapy due to acute WV and recent LAD stenting
.
NSVT-patient had runs of NSVT yesterday which were asymptomatic. Use of beta-blayne limited by episode of hypotension. Blood pressure appears improved. If blood pressure remains stable and without active bleeding then will add low-dose
beta-blayne. If use of beta-blockers for the limited and he has further issues with significant VT then would use amiodarone
.
Critical care time 40 minutes
Impression / Plan
-
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 Patient admitted with acute anterior ST [place]V on 09/23/2024 with stenting
of LAD as noted below.
Events overnight: patient with right groin hematoma 09/23/2024. Downward trend of troponin down to 7.[address] scan which showed an increase in hematoma compared to ultrasound done earlier in the day. There was some question whether there was
any evidence of active bleeding but on further review by vascular there was not felt to be clear evidence. Patient's hemoglobin down to 7.4 currently feeling better and says right groin feels better
On exam there is evidence of right groin hematoma with appropriate level of tenderness. Area is soft. Patient in no distress
.
Cardiac catheterization 09/23/2024. LAD occluded with some propagation into the diagonal with 70% stenosis in the proximal diagonal and 60% in the mid third no other obstructive disease in the left circumflex or RCA. Patient underwent successful
stenting of the LAD with a 3.0 x 15 ELEANOR jailing the origin of D1 residual 90% stenosis of ostium of D1. D1 with SABINE-3 flow
- Continue aspirin Plavix
- Beta-blockers BP tolerates
- No KEYANA or ARB currently due to BP
.
Right groin hematoma.
- Right groin hematoma noted 09/23/2024
- Vascular consulted
- Due to further drop in hemoglobin CT of the abdomen and pelvis was performed. Full report pending. Through a verbal report to CTPA the hematoma was larger than it was on prior ultrasound there was further review of imaging by vascular surgery
and it was not felt that there was clear evidence of active bleeding.
- Transfuse PRBC
- Bedrest
-Additional assessment by vascular surgery today
.
Acute on chronic anemia.
-Secondary to groin hematoma
= Transfuse PRBC
.
NSVT. Patient had runs of asymptomatic NSVT yesterday.
- Use of beta-blayne limited due to drop in BP.
- If blood pressure remains stable and bleeding appears stable then we will add beta-blayne otherwise if patient has more significant NSVT then could consider amiodarone.
.
PAF. Prior history. [id number] 5.
- Patient with recent bleeding issues/GI bleed and now with issues with groin hematoma. Not currently on anticoagulation. Patient remains in sinus rhythm. Patient is currently on antiplatelet therapy. Continued reassessment with interventional
cardiology.
#GIB = prior recent history. Not active this admission
-Recent, currently controlled.
-S/P APC + clip of duodenal angioectasia.
-S/P biopsy of laryngeal lesion. 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
Physical Exam
Vital Signs/Labs
Vital Signs
Temp Pulse Resp BP Pulse Ox
98.8 F 73 18 105/54 94
09/24/24 03:38 09/24/24 05:30 09/24/24 03:38 09/24/24 05:30 09/24/24 03:38
09/23/24 09/24/24 09/25/24
06:59 06:59 06:59
Actual Weight 84.8 kg
09/24/24 03:48
09/24/24 03:48
Magnesium 1.8 mg/dl (1.6-2.3) 09/23/24 22:30
Triglycerides 79 mg/dl (10-149) 09/23/24 04:50
LDL Cholesterol, Calc 34 mg/dl 09/23/24 04:50
VLDL Cholesterol, Calc 15 mg/dl (0-30) 09/23/24 04:50
HDL Cholesterol 51 mg/dl 09/23/24 04:50
LAB Results
09/23/24 09/23/24 09/23/24
04:50 06:45 11:00
Troponin I 0.332 H* Cancelled Cancelled
09/23/24 09/23/24 09/23/24
11:44 12:45 16:55
Troponin I 111.000 H* D Cancelled 72.300 H* D
09/23/24 09/24/24
18:45 03:48
Troponin I Cancelled 34.400 H*
Physical Exam
Constitutional: No acute distress
Cardiovascular: Rhythm & rate is regular
Respiratory: Respiratory effort normal
GI: Soft, Non tender and Normal bowel sounds
Neuro/Psych: Alert and Oriented
Other: Other (Right groin hematoma there is some tenderness which is appropriate considering presence of hematoma. Area is soft.)
Data Reviewed
-
Date of Service: September 24, 2024
Medical Decision Making: Reviewed Test Results
EKG: Report Reviewed by me
Echo: Report Reviewed by me
X-Ray/CT/US/MRI/NUC/PET: Report Reviewed by me
Medical Tests (PFT, Pathology etc): Report Reviewed by me
Labs: Labs Reviewed by me
[2024-09-24] MEDS: TYLENOL 650 MG PO (07:33)
[2024-09-24] MEDS: ADVAIR HFA 230/21 MCG INHALER 2 PUFF INH ×2 (07:49→20:04)
--- NOTE | 2024-09-24 07:56 | PTCARENOTE ---
Received patient this morning maintaining bedrest, right groin dressing is dry and intact, area is soft but ecchymosis noted on inner thigh and scrotum. Patient seen by Dr. Corley and ordered 1 unit PRBC's. Medicated with tylenol as ordered, unit
of blood transfusing now. Call damon in reach, waiting for repeat u/s.
[2024-09-24] MEDS: LOW STRENGTH ASPIRIN 81 MG PO (09:40)
[2024-09-24] MEDS: ZYLOPRIM 300 MG PO (09:40)
[2024-09-24] MEDS: PROTONIX 40 MG PO (09:40)
[2024-09-24] MEDS: PROZAC 20 MG PO ×2 (09:40→20:26)
[2024-09-24] MEDS: PLAVIX 75 MG PO (09:40)
[2024-09-24] MEDS: FLUSH (NSS) 2 FLUSH IV (09:41)
--- NOTE | 2024-09-24 10:33 | PTCARENOTE ---
Blood transfused without incident, awaiting ultrasound
--- NOTE | 2024-09-24 11:05 | W.PN.UPDATE ---
Update Note
Progress Note Update
Patient admitted to same Dr. Wang. Patient offers no complaints at this time. Groin site soft, nontender, remains stable.
Ultrasound reviewed by Dr. Ivan. Stable hematoma and no evidence of pseudoaneurysm.
[2024-09-24] MEDS: TOPROL XL 12.5 MG PO (11:15)
[2024-09-24 13:51] LABS: % Basophils 0.6 % (0-2); % Eosinophils 2.3 % (0-6); % Immature Granulocytes 0.2 % (0-0.5); % Lymphocytes 18.8 % (20.5-51.1); % Monocytes 11.4 % (1.7-9.3); % Neutrophils 66.7 % (42.2-75.2); Absolute Eosinophils 0.2 10^3/uL (0-0.7); Absolute Lymphocytes 1.2 10^3/uL (1.2-3.4); Absolute Monocytes 0.7 10^3/uL (0.1-0.6); Absolute Neutrophils 4.3 10^3/uL (1.4-6.5); Hematocrit 25.6 % (39.0-52.0); Hemoglobin 8.2 g/dL (13.0-18.0); Mean Corpuscular Hgb 29.1 pg (27.0-31.0); Mean Corpuscular Volume 90.8 fL (80.0-94.0); Mean Platelet Volume 9.9 fL (7.4-10.4); Nucleated Red Blood Cells % 0 % (-); Platelet Count 175 10^3/uL (130-400); Red Blood Cell Count 2.82 10^6/uL (4.70-6.10); Red Cell Dist. Width 16.5 % (11.5-14.5); White Blood Cell Count 6.4 10^3/uL (4.8-10.8)
--- NOTE | 2024-09-24 13:51 | CM ---
Reviewed chart. Met with Mr. Landa to review discharge plans. He states he is feeling better. Prior to admission he resides with his daughter in a second floor condo with fourteen steps to enter. Prior to admission he was independent with
ambulation and adls. He does uses a rollator at home sometimes. He has a shower and a rollator. He has had [facility] in the past. He was also in [facility] in the past for SNF/Rehab. He has a prescription plan and PACE. Will
need to see his current functional level to see if he will have any skilled care needs. Medical work-up in progress. The discharge plan is to return home with his daughter and [facility] if indicated when medically stable.
[2024-09-24 14:11] LABS: Albumin 3.5 g/dl (3.5-5.0); Blood Urea Nitrogen 18 mg/dl (9-20); Carbon Dioxide 33 mmol/L (22-30); Chloride 99 mmol/L (98-107); Estimated Creatinine Clearance 54 ml/min; Glucose 140 mg/dl (70-99); Phosphorus 3.5 mg/dl (2.5-4.5); Potassium 4.3 mmol/L (3.5-5.1); Sodium 139 mmol/L (135-145); eGFR > 60.00
--- NOTE | 2024-09-24 15:24 | PTCARENOTE ---
Patient resting comfortably, VSS, was able to tolerate metoprolol this morning. Right groin dressing remains dry and intact, groin is soft but tender to touch, no increase in size of hematoma that is marked, scrotum very ecchymotic. Dr. Robins
rounding on the unit, notified of repeat Hg, continue bedrest for tonight and re-evaluate in the morning. Patient is tired and comfortable with maintaining bedrest. Call damon in reach.
[2024-09-24] MEDS: LIPITOR 40 MG PO (17:53)
[2024-09-24] MEDS: SINGULAIR 10 MG PO (22:51)
--- NOTE | 2024-09-24 23:35 | PTCARENOTE ---
Pt rec'd at change of shift on CBR. Right groin soft but tender to touch good pedal pulses. Pt with non prod cough encouraged to hold groin with coughing. Sinus on telemetry no ectopy. At 2300 pt given Percocet for right groin discomfort.
[2024-09-25] VITALS (8 sets, daily range): BP systolic 109–130; BP diastolic 50–77; PULSE 76; O2SAT 95
[2024-09-25] MEDS: SYNTHROID 50 MCG PO (04:45)
[2024-09-25 05:48] LABS: % Basophils 0.6 % (0-2); % Eosinophils 2.3 % (0-6); % Immature Granulocytes 0.4 % (0-0.5); % Lymphocytes 18.9 % (20.5-51.1); % Neutrophils 67.8 % (42.2-75.2); Absolute Basophils 0.1 10^3/uL (0-0.2); Absolute Eosinophils 0.2 10^3/uL (0-0.7); Absolute Lymphocytes 1.5 10^3/uL (1.2-3.4); Absolute Monocytes 0.8 10^3/uL (0.1-0.6); Absolute Neutrophils 5.4 10^3/uL (1.4-6.5); Hematocrit 24.5 % (39.0-52.0); Hemoglobin 7.9 g/dL (13.0-18.0); Mean Corp Hgb Conc. 32.2 g/dL (33.0-37.0); Mean Corpuscular Hgb 29.3 pg (27.0-31.0); Mean Corpuscular Volume 90.7 fL (80.0-94.0); Mean Platelet Volume 10.7 fL (7.4-10.4); Nucleated Red Blood Cells % 0 % (-); Platelet Count 176 10^3/uL (130-400); Red Cell Dist. Width 16.4 % (11.5-14.5); White Blood Cell Count 7.9 10^3/uL (4.8-10.8)
[2024-09-25 06:13] LABS: Albumin 3.2 g/dl (3.5-5.0); Blood Urea Nitrogen 18 mg/dl (9-20); Calcium 8.9 mg/dl (8.4-10.2); Carbon Dioxide 31 mmol/L (22-30); Chloride 102 mmol/L (98-107); Estimated Creatinine Clearance 54 ml/min; Glucose 112 mg/dl (70-99); Phosphorus 3.7 mg/dl (2.5-4.5); Potassium 4.5 mmol/L (3.5-5.1); Sodium 139 mmol/L (135-145); eGFR > 60.00
[2024-09-25] MEDS: ADVAIR HFA 230/21 MCG INHALER 2 PUFF INH ×2 (07:48→18:40)
[2024-09-25] MEDS: LOW STRENGTH ASPIRIN 81 MG PO (08:48)
[2024-09-25] MEDS: PROTONIX 40 MG PO (08:48)
[2024-09-25] MEDS: PLAVIX 75 MG PO (08:48)
[2024-09-25] MEDS: PROZAC 20 MG PO ×2 (08:49→19:47)
[2024-09-25] MEDS: ZYLOPRIM 300 MG PO (08:49)
[2024-09-25] MEDS: FLUSH (NSS) 2 FLUSH IV (08:49)
[2024-09-25] MEDS: TOPROL XL 12.5 MG PO (08:49)
--- NOTE | 2024-09-25 09:28 | PTCARENOTE ---
Received patient this morning resting in bed, offers no complaints other than some right groin discomfort when palpated. Right groin dressing is dry and intact, area remains edematous but soft with purple ecchymosis on scrotum. Right wrist dressing
removed, no hematoma or bleeding noted, ecchymosis present. Dr. Robins in to see the patient, will allow OOB and have PT consulted.
--- NOTE | 2024-09-25 09:58 | W.PN.CD ---
Today's Communication / Plan
-
titrate Toprol XL
add farxiga today
assess for entresto tomorrow
trend tele
trend Hgb
PT/OT
Impression / Plan
-
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 Patient admitted with acute anterior ST [facility] on 09/23/2024 with stenting
of LAD as noted below.
# CAD, STEMI.
-Cardiac catheterization 09/23/2024. LAD occluded with some propagation into the diagonal with 70% stenosis in the proximal diagonal and 60% in the mid third no other obstructive disease in the left circumflex or RCA. Patient underwent successful
stenting of the LAD with a 3.0 x 15 ELEANOR jailing the origin of D1 residual 90% stenosis of ostium of D1. D1 with SABINE-3 flow
- Continue aspirin/Plavix/statin
# ICM EF 40%
- titrate Toprol XL
-add farxiga today
-assess for entresto tomorrow
# Right groin hematoma.
- Right groin hematoma noted 09/23/2024
- Vascular consulted: stable
- s/p pRBC
# NSVT. Patient had runs of asymptomatic NSVT 09/24 and 09/25
-7 beats today on 09/25
- titrate Toprol XL
# Paroxysmal A fib. Prior history. [id number] 5.
- Patient with recent bleeding issues/GI bleed and now with issues with groin hematoma. Not currently on anticoagulation. Patient remains in sinus rhythm. Patient is currently on antiplatelet therapy.
# GIB: prior recent history. Not active this admission
-Recent, currently controlled.
-S/P APC + clip of duodenal angioectasia.
-S/P biopsy of laryngeal lesion. 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
Physical Exam
Vital Signs/Labs
Vital Signs
Temp Pulse Resp BP Pulse Ox
98.2 F 78 20 129/64 95
09/25/24 08:21 09/25/24 08:17 09/25/24 08:21 09/25/24 08:17 09/25/24 08:21
09/25/24 04:52
09/25/24 04:52
Magnesium 1.8 mg/dl (1.6-2.3) 09/23/24 22:30
Triglycerides 79 mg/dl (10-149) 09/23/24 04:50
LDL Cholesterol, Calc 34 mg/dl 09/23/24 04:50
VLDL Cholesterol, Calc 15 mg/dl (0-30) 09/23/24 04:50
HDL Cholesterol 51 mg/dl 09/23/24 04:50
LAB Results
09/23/24 09/23/24 09/23/24
04:50 06:45 11:00
Troponin I 0.332 H* Cancelled Cancelled
09/23/24 09/23/24 09/23/24
11:44 12:45 16:55
Troponin I 111.000 H* D Cancelled 72.300 H* D
09/23/24 09/24/24
18:45 03:48
Troponin I Cancelled 34.400 H*
Physical Exam
Constitutional: No acute distress and Comfortable
EENT: Moist mucous membranes
Cardiovascular: Rhythm & rate is regular, Pedal edema is absent, JVD pressure is normal and Systolic murmur absent
Respiratory: Respiratory effort normal and Lungs clear to auscul.
Neuro/Psych: AO x 3
Data Reviewed
-
Date of Service: September 25, 2024
EKG: Other (Tele: SR 70s, 7 beats NSVT)
Labs: Labs Reviewed by me
[2024-09-25] MEDS: FARXIGA 10 MG PO (10:37)
--- NOTE | 2024-09-25 11:02 | CM ---
Reviewed chart. Asked to check on coverage for Farxiga and Farxiga. Telephone call to his insurance to check on co-pay for Farxiga and Entresto. They are both Tier 3 medications. Farxiga would be $12.15 a month and Entresto would also be $12.15
a month. Reviewed with him. He is agreeable to the co-pay. Placed the one month free coupons for Farxiga and Entresto in his red discharge folder. We reviewed [facility] and he is agreeable to [facility] and he would like to use [facility]. Awaiting his physical therapy evaluation to see if he will have any skilled care needs. [facility] to [facility] the [facility]. Sent the referral. Prior to admission he resides with his daughter in a second floor
condo with fourteen steps to enter. Prior to admission he was independent with ambulation and adls. He has a rollator and shower chair at [facility]. He has had [facility] in the past and he has been in [facility] in the past. He has
a prescription plan and PACE. Medical work-up in progress. The discharge plan is to return home with his daughter and [facility] when medically stable.
[2024-09-25] MEDS: LIPITOR 40 MG PO (18:43)
[2024-09-25] MEDS: TOPROL XL 25 MG PO (19:48)
--- NOTE | 2024-09-25 21:08 | PTCARENOTE ---
Pt rec'd at change of shift sitting on side of bed with daughter present. Sinus with freq pac's noted. Right femoral site remains a little puffy but soft, ecchymosis noted in scrotal area. right radial rotary cutter feeder. Pt and daughter can be heard going through
page by page of heart failure book. diet restrictions
[2024-09-25] MEDS: SINGULAIR 10 MG PO (22:57)
[2024-09-26 04:58] VITALS: BP 117/57
[2024-09-26] MEDS: SYNTHROID 50 MCG PO (05:14)
[2024-09-26 05:18] VITALS: BMI 26.8
[2024-09-26 05:22] LABS: Hematocrit 25.2 % (39.0-52.0); Hemoglobin 8.1 g/dL (13.0-18.0); Mean Corp Hgb Conc. 32.1 g/dL (33.0-37.0); Mean Corpuscular Hgb 29.8 pg (27.0-31.0); Mean Corpuscular Volume 92.6 fL (80.0-94.0); Mean Platelet Volume 9.9 fL (7.4-10.4); Platelet Count 166 10^3/uL (130-400); Red Blood Cell Count 2.72 10^6/uL (4.70-6.10); Red Cell Dist. Width 16.2 % (11.5-14.5); White Blood Cell Count 8.5 10^3/uL (4.8-10.8)
[2024-09-26 05:36] LABS: Blood Urea Nitrogen 21 mg/dl (9-20); Calcium 9.1 mg/dl (8.4-10.2); Carbon Dioxide 29 mmol/L (22-30); Chloride 103 mmol/L (98-107); Estimated Creatinine Clearance 50 ml/min; Glucose 100 mg/dl (70-99); Potassium 4.6 mmol/L (3.5-5.1); Sodium 140 mmol/L (135-145); eGFR > 60.00
[2024-09-26 08:48] VITALS: BP 120/67
[2024-09-26] MEDS: TOPROL XL 25 MG PO (09:10)
[2024-09-26] MEDS: FARXIGA 10 MG PO (09:10)
[2024-09-26] MEDS: PLAVIX 75 MG PO (09:10)
[2024-09-26] MEDS: ZYLOPRIM 300 MG PO (09:11)
[2024-09-26] MEDS: PROZAC 20 MG PO ×2 (09:11→19:46)
[2024-09-26] MEDS: PROTONIX 40 MG PO (09:11)
[2024-09-26] MEDS: LOW STRENGTH ASPIRIN 81 MG PO (09:11)
--- NOTE | 2024-09-26 10:29 | W.PN.CD ---
Today's Communication / Plan
-
titrate Toprol XL: now at 50mg bid
added xiga 09/25
start entresto 24/26mg bid today
Impression / Plan
-
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 Patient admitted with acute anterior ST [place] on 09/23/2024 with stenting
of LAD as noted below.
# CAD, STEMI.
-Cardiac catheterization 09/23/2024. LAD occluded with some propagation into the diagonal with 70% stenosis in the proximal diagonal and 60% in the mid third no other obstructive disease in the left circumflex or RCA. Patient underwent successful
stenting of the LAD with a 3.0 x 15 ELEANOR jailing the origin of D1 residual 90% stenosis of ostium of D1. D1 with SABINE-3 flow
- Continue aspirin/Plavix/statin
# ICM EF 40%
- titrate Toprol XL: now at 50mg bid
-added farxiga 09/25
-start entresto 24/26mg bid today
# Right groin hematoma.
- Right groin hematoma noted 09/23/2024
- Vascular consulted: stable
- s/p pRBC
# NSVT. Patient had runs of asymptomatic NSVT 09/24 and 09/25
-7 beats today on 09/25
- titrate Toprol XL
# Paroxysmal A fib. Prior history. [id number] 5.
- Patient with recent bleeding issues/GI bleed and now with issues with groin hematoma. Not currently on anticoagulation. Patient remains in sinus rhythm. Patient is currently on antiplatelet therapy.
# GIB: prior recent history. Not active this admission
-Recent, currently controlled.
-S/P APC + clip of duodenal angioectasia.
-S/P biopsy of laryngeal lesion. 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
Physical Exam
Vital Signs/Labs
Vital Signs
Temp Pulse Resp BP Pulse Ox
98.4 F 68 18 150/67 96
09/26/24 08:50 09/26/24 09:10 09/26/24 08:50 09/26/24 09:10 09/26/24 08:50
09/25/24 09/26/24 09/27/24
06:59 06:59 06:59
Actual Weight 84.6 kg
09/26/24 05:08
09/26/24 05:08
Magnesium 1.8 mg/dl (1.6-2.3) 09/23/24 22:30
Triglycerides 79 mg/dl (10-149) 09/23/24 04:50
LDL Cholesterol, Calc 34 mg/dl 09/23/24 04:50
VLDL Cholesterol, Calc 15 mg/dl (0-30) 09/23/24 04:50
HDL Cholesterol 51 mg/dl 09/23/24 04:50
LAB Results
09/23/24 09/23/24 09/23/24
11:00 11:44 16:55
Troponin I Cancelled 111.000 H* D 72.300 H* D
09/24/24
03:48
Troponin I 34.400 H*
Physical Exam
Constitutional: No acute distress and Comfortable
EENT: Moist mucous membranes
Cardiovascular: Rhythm & rate is regular, Pedal edema is absent, JVD pressure is normal and Systolic murmur absent
Respiratory: Respiratory effort normal and Lungs clear to auscul.
Neuro/Psych: AO x 3
Data Reviewed
-
Date of Service: September 26, 2024
EKG: Other (Tele: SR 60s-70s)
Labs: Labs Reviewed by me
[2024-09-26] MEDS: ENTRESTO 24 MG/26 MG 1 TAB PO ×2 (11:29→19:46)
[2024-09-26 11:32] VITALS: BP 118/53
[2024-09-26] MEDS: ADVAIR HFA 230/21 MCG INHALER 2 PUFF INH ×2 (13:17→18:04)
[2024-09-26 15:36] VITALS: BP 109/52
[2024-09-26] MEDS: LIPITOR 40 MG PO (18:14)
--- NOTE | 2024-09-26 18:26 | PTCARENOTE ---
Removed gauze dressing from pt's right groin site. Pt's right groin site ecchymotic and tender to touch. Offered comfort measures.
[2024-09-26 18:44] VITALS: BP 116/57
[2024-09-26] MEDS: TOPROL XL 50 MG PO (19:46)
[2024-09-26 22:28] VITALS: BP 128/59
[2024-09-26] MEDS: SINGULAIR 10 MG PO (22:29)
--- NOTE | 2024-09-27 01:38 | PTCARENOTE ---
Pt. has no complaints of CP/discomfort this shift, VSS, NSR with frequent PAC's on the monitor (PAC's decreased post 1999 Toprol admin.). Right groin site still puffy but soft, ecchymosis noted down into scrotum, unchanged from beginning of shift.
Pedal pulse palpable. Pt. reports discomfort only with movement, advised to take it slow and easy when ambulating/transferring. Understanding verbalized. Currently sleeping.
[2024-09-27 04:01] VITALS: BP 114/55
[2024-09-27 04:44] LABS: % Basophils 0.6 % (0-2); % Eosinophils 2.2 % (0-6); % Immature Granulocytes 0.4 % (0-0.5); % Lymphocytes 18.1 % (20.5-51.1); % Monocytes 8.7 % (1.7-9.3); Absolute Basophils 0.1 10^3/uL (0-0.2); Absolute Eosinophils 0.2 10^3/uL (0-0.7); Absolute Lymphocytes 1.4 10^3/uL (1.2-3.4); Absolute Monocytes 0.7 10^3/uL (0.1-0.6); Absolute Neutrophils 5.5 10^3/uL (1.4-6.5); Hemoglobin 8.5 g/dL (13.0-18.0); Mean Corp Hgb Conc. 31.5 g/dL (33.0-37.0); Mean Corpuscular Hgb 29.5 pg (27.0-31.0); Mean Corpuscular Volume 93.8 fL (80.0-94.0); Mean Platelet Volume 10.3 fL (7.4-10.4); Nucleated Red Blood Cells % 0 % (-); Platelet Count 200 10^3/uL (130-400); Red Blood Cell Count 2.88 10^6/uL (4.70-6.10); Red Cell Dist. Width 16.3 % (11.5-14.5); White Blood Cell Count 7.9 10^3/uL (4.8-10.8)
[2024-09-27 04:55] LABS: Blood Urea Nitrogen 23 mg/dl (9-20); Calcium 9.4 mg/dl (8.4-10.2); Carbon Dioxide 29 mmol/L (22-30); Chloride 106 mmol/L (98-107); Estimated Creatinine Clearance 50 ml/min; Glucose 124 mg/dl (70-99); Potassium 5.3 mmol/L (3.5-5.1); Sodium 142 mmol/L (135-145); eGFR > 60.00
[2024-09-27 06:00] VITALS: BMI 26.4
[2024-09-27] MEDS: SYNTHROID 50 MCG PO (06:22)
[2024-09-27] MEDS: ADVAIR HFA 230/21 MCG INHALER 2 PUFF INH ×2 (07:46→20:24)
[2024-09-27 08:18] VITALS: BP 119/59
[2024-09-27] MEDS: PROTONIX 40 MG PO (08:24)
[2024-09-27] MEDS: ENTRESTO 24 MG/26 MG 1 TAB PO ×2 (08:24→20:36)
[2024-09-27] MEDS: TOPROL XL 50 MG PO ×2 (08:25→20:36)
[2024-09-27] MEDS: FARXIGA 10 MG PO (08:25)
[2024-09-27] MEDS: ZYLOPRIM 300 MG PO (08:25)
[2024-09-27] MEDS: PROZAC 20 MG PO ×2 (08:25→20:36)
[2024-09-27] MEDS: LOW STRENGTH ASPIRIN 81 MG PO (08:25)
[2024-09-27] MEDS: PLAVIX 75 MG PO (08:25)
--- NOTE | 2024-09-27 10:10 | W.PN.CD ---
Today's Communication / Plan
-
cont Toprol XL
mild hyperkalemia: trend
-will stop entresto if persists
Impression / Plan
-
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 Patient admitted with acute anterior [facility] on 09/23/2024 with stenting
of LAD as noted below.
# CAD, STEMI.
-Cardiac catheterization 09/23/2024. LAD occluded with some propagation into the diagonal with 70% stenosis in the proximal diagonal and 60% in the mid third no other obstructive disease in the left circumflex or RCA. Patient underwent successful
stenting of the LAD with a 3.0 x 15 ELEANOR jailing the origin of D1 residual 90% stenosis of ostium of D1. D1 with SABINE-3 flow
- Continue aspirin/Plavix/statin
# ICM EF 40%
- titrate Toprol XL: now at 50mg bid
-added farxiga 09/25
-started entresto 24/26mg bid 09/26
# Hyperkalemia
-mild, trend
-if does not resolve, will assess to stop entresto
# Right groin hematoma.
- Right groin hematoma noted 09/23/2024
- Vascular consulted: stable
- s/p pRBC
# NSVT. Patient had runs of asymptomatic NSVT 09/24 and 09/25
-7 beats today on 09/25, none since then
- continue Toprol XL
# Paroxysmal A fib. Prior history. [id number] 5.
- Patient with recent bleeding issues/GI bleed and now with issues with groin hematoma. Not currently on anticoagulation. Patient remains in sinus rhythm. Patient is currently on antiplatelet therapy.
# GIB: prior recent history. Not active this admission
-Recent, currently controlled.
-S/P APC + clip of duodenal angioectasia.
-S/P biopsy of laryngeal lesion. 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
Physical Exam
Vital Signs/Labs
Vital Signs
Temp Pulse Resp BP Pulse Ox
98.6 F 56 20 119/59 97
09/27/24 08:19 09/27/24 09:00 09/27/24 08:19 09/27/24 08:24 09/27/24 08:19
09/26/24 09/27/24 09/28/24
06:59 06:59 06:59
Actual Weight 84.6 kg 83.5 kg
09/27/24 04:16
09/27/24 04:16
Magnesium 1.8 mg/dl (1.6-2.3) 09/23/24 22:30
Triglycerides 79 mg/dl (10-149) 09/23/24 04:50
LDL Cholesterol, Calc 34 mg/dl 09/23/24 04:50
VLDL Cholesterol, Calc 15 mg/dl (0-30) 09/23/24 04:50
HDL Cholesterol 51 mg/dl 09/23/24 04:50
Physical Exam
Constitutional: No acute distress and Comfortable
EENT: Moist mucous membranes
Cardiovascular: Rhythm & rate is regular, Pedal edema is absent, JVD pressure is normal and Systolic murmur absent
Respiratory: Respiratory effort normal
Neuro/Psych: AO x 3
Data Reviewed
-
Date of Service: September 27, 2024
EKG: Other (Tele: sinus 60s, PAC's)
Labs: Labs Reviewed by me
[2024-09-27 11:04] VITALS: BP 111/54
--- NOTE | 2024-09-27 14:13 | PTCARENOTE ---
Discussed plan to monitor pt's potassium level. Encouraged pt to increase activity. Will monitor.
[2024-09-27 16:26] VITALS: BP 108/55
[2024-09-27] MEDS: LIPITOR 40 MG PO (17:41)
[2024-09-27 18:36] VITALS: BP 115/67
[2024-09-27 22:22] VITALS: BP 113/57
[2024-09-27] MEDS: SINGULAIR 10 MG PO (22:22)
--- NOTE | 2024-09-27 23:00 | PTCARENOTE ---
Pt rec'd at change of shift awake,alert with mild discomfort at right groin. Denies need for pain medications. Right groin soft,ecchymotic tender with palpitation. Sinus on telemetry.
[2024-09-28] VITALS (10 sets, daily range): BP systolic 94–140; BP diastolic 47–69; PULSE 59–63; O2SAT 96; BMI 26.3
[2024-09-28] MEDS: SYNTHROID 50 MCG PO (05:01)
[2024-09-28 05:26] LABS: % Basophils 0.7 % (0-2); % Eosinophils 2.3 % (0-6); % Immature Granulocytes 0.3 % (0-0.5); % Lymphocytes 16.8 % (20.5-51.1); % Monocytes 8.1 % (1.7-9.3); % Neutrophils 71.8 % (42.2-75.2); Absolute Basophils 0.1 10^3/uL (0-0.2); Absolute Eosinophils 0.2 10^3/uL (0-0.7); Absolute Lymphocytes 1.6 10^3/uL (1.2-3.4); Absolute Monocytes 0.8 10^3/uL (0.1-0.6); Absolute Neutrophils 6.9 10^3/uL (1.4-6.5); Mean Corp Hgb Conc. 32.1 g/dL (33.0-37.0); Mean Corpuscular Hgb 29.3 pg (27.0-31.0); Mean Corpuscular Volume 91.2 fL (80.0-94.0); Mean Platelet Volume 10.4 fL (7.4-10.4); Nucleated Red Blood Cells % 0 % (-); Platelet Count 227 10^3/uL (130-400); Red Blood Cell Count 3.07 10^6/uL (4.70-6.10); Red Cell Dist. Width 16.3 % (11.5-14.5); White Blood Cell Count 9.6 10^3/uL (4.8-10.8)
[2024-09-28 05:47] LABS: Blood Urea Nitrogen 25 mg/dl (9-20); Calcium 9.2 mg/dl (8.4-10.2); Carbon Dioxide 25 mmol/L (22-30); Chloride 106 mmol/L (98-107); Estimated Creatinine Clearance 50 ml/min; Glucose 106 mg/dl (70-99); Potassium 4.6 mmol/L (3.5-5.1); Sodium 140 mmol/L (135-145); eGFR > 60.00
[2024-09-28] MEDS: ADVAIR HFA 230/21 MCG INHALER 2 PUFF INH ×2 (07:52→19:13)
--- NOTE | 2024-09-28 08:35 | W.PN.CD ---
Addendum entered and electronically signed by Donny Robins MD 09/28/24 09:08:
79 yo male with CAD, STEMI s/p LAD stent 09/23, ICM EF 40%, post procedure groin hematoma. Still with significant groin pain. No chest pain. Exam with RRR, no murmurs, no edema. Tele: SB 55-60, no arrhythmia.
Hematoma. Repeat groin u/s.
PT/OT eval. He is having trouble performing ADL due to pain.
ICM EF 40%. Cont Toprol XL, entresto, farxiga. Hyperkalemia has resolved, but will remain off of aldactone at this time.
Original Note:
Today's Communication / Plan
-
CAD: No CP. Continue ASA, Plavix, statin
ICM: No SOB. Continue metoprolol, Entresto, Farxiga- continue to titrate GDMT as tolerated in follow-up
Right groin hematoma: assessment as noted below, causing him worsened pain- repeat groin u/s
PT/OT today
Impression / Plan
-
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 Patient admitted with acute anterior ST CO on 09/23/2024 with stenting
of LAD as noted below.
# CAD, STEMI.
-Cardiac catheterization 09/23/2024. LAD occluded with some propagation into the diagonal with 70% stenosis in the proximal diagonal and 60% in the mid third no other obstructive disease in the left circumflex or RCA. Patient underwent successful
stenting of the LAD with a 3.0 x 15 ELEANOR jailing the origin of D1 residual 90% stenosis of ostium of D1. D1 with SABINE-3 flow
- Continue aspirin/Plavix/statin
# ICM EF 40%
-titrate Toprol XL: now at 50mg bid
-added Farxiga 09/25
-started Entresto 24/26mg bid 09/26
# Hyperkalemia
-mild, resolved
# Right groin hematoma.
- Right groin hematoma noted 09/23/2024
- Vascular consulted: stable
- s/p pRBC
# NSVT. Patient had runs of asymptomatic NSVT 09/24 and 09/25
-7 beats today on 09/25, none since then
- continue Toprol XL
# Paroxysmal A fib. Prior history. [id number] 5.
- Patient with recent bleeding issues/GI bleed and now with issues with groin hematoma. Not currently on anticoagulation. Patient remains in sinus rhythm. Patient is currently on antiplatelet therapy.
# GIB: prior recent history. Not active this admission
-Recent, currently controlled.
-S/P APC + clip of duodenal angioectasia.
-S/P biopsy of laryngeal lesion. 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
Subjective:
-no CP or SOB
-right groin painful - hematoma noted, soft- good right pedal pulse- discussed with nursing who thinks stable since Saturday
Physical Exam
Vital Signs/Labs
Vital Signs
Temp Pulse Resp BP Pulse Ox
97.6 F 58 18 113/57 97
09/28/24 08:29 09/28/24 08:07 09/28/24 08:29 09/27/24 22:22 09/28/24 08:29
09/27/24 09/28/24 09/29/24
06:59 06:59 06:59
Actual Weight 83.5 kg 83.1 kg
09/28/24 05:12
09/28/24 05:12
Magnesium 1.8 mg/dl (1.6-2.3) 09/23/24 22:30
Triglycerides 79 mg/dl (10-149) 09/23/24 04:50
LDL Cholesterol, Calc 34 mg/dl 09/23/24 04:50
VLDL Cholesterol, Calc 15 mg/dl (0-30) 09/23/24 04:50
HDL Cholesterol 51 mg/dl 09/23/24 04:50
Physical Exam
Constitutional: No acute distress
EENT: Anicteric
Cardiovascular: Rhythm & rate is regular
Respiratory: Respiratory effort normal and Lungs clear to auscul.
Neuro/Psych: AO x 3
Other: Cath Site (right groin with soft hematoma, ecchymosis)
Data Reviewed
-
Date of Service: September 28, 2024
EKG: Other (SR)
Medical Tests (PFT, Pathology etc): Other (order u/s)
Labs: Labs Reviewed by me
[2024-09-28] MEDS: FARXIGA 10 MG PO (09:49)
[2024-09-28] MEDS: PROZAC 20 MG PO ×2 (09:49→20:37)
[2024-09-28] MEDS: PLAVIX 75 MG PO (09:49)
[2024-09-28] MEDS: PROTONIX 40 MG PO (09:49)
[2024-09-28] MEDS: LOW STRENGTH ASPIRIN 81 MG PO (09:49)
[2024-09-28] MEDS: FLUSH (NSS) 1 FLUSH IV (09:50)
[2024-09-28] MEDS: TOPROL XL 50 MG PO ×2 (09:50→20:37)
[2024-09-28] MEDS: ZYLOPRIM 300 MG PO (09:50)
[2024-09-28] MEDS: ENTRESTO 24 MG/26 MG 1 TAB PO ×2 (09:50→20:37)
--- NOTE | 2024-09-28 10:34 | PTCARENOTE ---
Received patient this morning resting in bed. Complaining of severe discomfort in the right groin, most notable when he sits on the toilet. Area remains edematous but soft with a large area of ecchymosis on the hip, groin and scrotum. Patient sent
for a repeat ultrasound of the right groin.
--- NOTE | 2024-09-28 15:03 | CM ---
Chart reviewed. Patient is independent of ADLS, lives with his daughter in a 2nd floor condo, [address], ambulates with a rollator, has a shower chair and grab bars. PT evaluation recommending VN. Referral sent to [facility]. Plan is for the patient to
return home with [facility]. CM to follow
[2024-09-28] MEDS: LIPITOR 40 MG PO (18:14)
[2024-09-28] MEDS: SINGULAIR 10 MG PO (22:25)
--- NOTE | 2024-09-28 23:24 | PTCARENOTE ---
Pt rec'd in bed with daughter at bedside. Right groin remains ecchymotic but soft. Still with c/o mild pain when sitting.
[2024-09-29 04:03] VITALS: BP 125/64
[2024-09-29 04:25] LABS: % Basophils 0.8 % (0-2); % Eosinophils 1.6 % (0-6); % Immature Granulocytes 0.4 % (0-0.5); % Lymphocytes 18.2 % (20.5-51.1); % Monocytes 8.8 % (1.7-9.3); % Neutrophils 70.2 % (42.2-75.2); Absolute Basophils 0.1 10^3/uL (0-0.2); Absolute Eosinophils 0.2 10^3/uL (0-0.7); Absolute Lymphocytes 1.9 10^3/uL (1.2-3.4); Absolute Monocytes 0.9 10^3/uL (0.1-0.6); Absolute Neutrophils 7.3 10^3/uL (1.4-6.5); Hematocrit 27.8 % (39.0-52.0); Hemoglobin 8.9 g/dL (13.0-18.0); Mean Corpuscular Hgb 29.6 pg (27.0-31.0); Mean Corpuscular Volume 92.4 fL (80.0-94.0); Mean Platelet Volume 10.1 fL (7.4-10.4); Nucleated Red Blood Cells % 0 % (-); Platelet Count 222 10^3/uL (130-400); Red Blood Cell Count 3.01 10^6/uL (4.70-6.10); Red Cell Dist. Width 16.6 % (11.5-14.5); White Blood Cell Count 10.4 10^3/uL (4.8-10.8)
[2024-09-29 04:50] LABS: Blood Urea Nitrogen 28 mg/dl (9-20); Calcium 9.1 mg/dl (8.4-10.2); Carbon Dioxide 24 mmol/L (22-30); Chloride 110 mmol/L (98-107); Estimated Creatinine Clearance 54 ml/min; Glucose 106 mg/dl (70-99); Potassium 4.5 mmol/L (3.5-5.1); Sodium 140 mmol/L (135-145); eGFR > 60.00
[2024-09-29] MEDS: ADVAIR HFA 230/21 MCG INHALER 2 PUFF INH (07:28)
[2024-09-29 07:43] VITALS: BP 123/63
[2024-09-29] MEDS: PLAVIX 75 MG PO (07:53)
[2024-09-29] MEDS: PROTONIX 40 MG PO (07:53)
[2024-09-29] MEDS: LOW STRENGTH ASPIRIN 81 MG PO (07:53)
[2024-09-29] MEDS: ENTRESTO 24 MG/26 MG 1 TAB PO (07:53)
[2024-09-29] MEDS: FARXIGA 10 MG PO (07:53)
[2024-09-29] MEDS: TOPROL XL 50 MG PO (07:53)
[2024-09-29] MEDS: PROZAC 20 MG PO (07:53)
[2024-09-29] MEDS: ZYLOPRIM 300 MG PO (07:53)
[2024-09-29] MEDS: SYNTHROID 50 MCG PO (07:57)
--- NOTE | 2024-09-29 08:32 | W.PN.CD ---
Today's Communication / Plan
-
Ambulate.
Maintain DAPT.
OMT/GDMT stable.
PT/OT.
Discharge planning.
Impression / Plan
-
Impression/Plan: 79-year-old male with a history of CVA, PAF, hypertension, hyperlipidemia, asthma and depression recently admitted twice with GI bleed due to duodenal angioectasia s/p clip/APC and pharyngeal polyp, now admitted with acute anterior
ST SD on 09/23/2024 with PCI of LAD, complicated by right femoral artery hematoma/acute blood loss anemia requiring transfusion.
#CAD, STEMI
-Acute, threat to life, resolving.
-Troponin peaked at 111.
-S/P successful IVUS guided PCI of the LAD with a 3.0 x 15 ELEANOR jailing the origin of D1 residual 90% stenosis of ostium of D1. D1 with SABINE-3 flow.
-Continue aspirin/clopidogrel/statin.
#ICMO
-New diagnosis due to STEMI.
-LVEF = 40%.
-GDMT
-Beta Artur = Metoprolol succinate 50 mg BID.
-ACEI/ARB/ARNi = Sacubitril/Valsartan 24/26 mg BID.
-SGLT2i = Dapagliflozin 10 mg daily.
-MRA = On hold due to hyperkalemia.
-ICD = Not indicated.
#Right groin hematoma
-Acute, secondary to femoral access, closed with angioseal, clearly ruptured when patient got out of bed to use commode, noted 09/23/2024.
-Vascular US negative for pseudoaneurysm. CTA shows hematoma without vessel disruption.
-S/P 1 unit of PRBC's (09/24/2024).
-Conservative management.
#NSVT
-Asymptomatic NSVT 09/24 and 09/25.
-Resolved on increased dose of metoprolol.
#Paroxysmal A fib.
-Prior history in the setting of MSSA PNA/bacteremia.
-Currently in NSR.
-Rate/rhythm control with metoprolol succinate.
-[id number] 5 (CHF, HTN, Age x2, Vascualr disease).
-Patient with recent bleeding issues/GI bleed and now with issues with groin hematoma, previously taken off of anticoagulation. Maintain DAPT.
#GIB: prior recent history. Not active this admission
-Recent, currently controlled.
-S/P APC + clip of duodenal angioectasia.
-S/P biopsy of laryngeal lesion. 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
#Dispo
-IVU.
-Full code.
-Discharge planning.
Subjective/Interval History:
H/H stable.
PT/OT working with patient due to pain with hematoma. They recommend continued home health at the time of discharge.
DATA:
Cardiac Catheterization/PCI, 09/23/2024:
CONCLUSIONS
1. Acute anterior ST elevation myocardial infarction.
2. Right dominant circulation with an acute, thrombotic occlusion of the proximal/mid LAD with propagation of the thrombus into the ostium of D1, a 70% lesion in the origin of D1 and a 60% lesion in the mid third of D1, status post successful IVUS
guided PCI of the LAD occlusion ([employer] [place] 3.0 x 15 ELEANOR, postdilated with a 3.0 NC balloon throughout and a 3.25 NC balloon in the proximal and mid stent), jailing the ostium of D1 and resulting in a 90% lesion in the origin of D1 but
restoring SABINE-3 flow in the LAD proper and maintaining SABINE-3 flow in D1.
3. Normal filling pressures (LVEDP = 12 mmHg at 84.4 kg).
4. Likely mild aortic valve stenosis based on pressure gradient at pullback.
Transthoracic Echo, 09/23/2024:
CONCLUSIONS
Mild to moderately decreased left ventricular systolic function. Left
ventricular ejection fraction is 40% by visual estimate.
LAD wall motion abnormality.
No significant valvular disease.
Compared to the prior imaging on 05/27/2024, the ejection fraction has decreased
and the wall motion abnormality in the inferoseptal and anterior wall are new
with worsening in the apex and anteroseptal wall.
Groin US, 09/23/2024:
IMPRESSION:
Normal appearance of right common femoral artery and common femoral vein. No evidence of pseudoaneurysm or arteriovenous fistula in the right groin. There is a small 3.7 x 1.7 x 3.9 cm hematoma located deep to the puncture site from recent
catheterization. Urgent study findings communicated via [employer] to the ordering providers on 09/23/24 at 12:25pm.
CTA, 09/24/2024:
IMPRESSION:
Enlarged right groin hematoma with a tiny focus of active bleeding.
Short segment focal infrarenal abdominal aortic dissection as described above..
Diverticulosis.
Mild diffuse bladder wall thickening. This can be seen with cystitis or bladder outlet obstruction.
Moderate prostate hypertrophy.
Groin US, 09/24/2024:
IMPRESSION:
Redemonstration of right groin hematoma measuring up to 9.4 cm.
No evidence for pseudoaneurysm.
Groin US< 09/28/2024:
IMPRESSION:
Right groin hematoma measuring 7 cm x 2.4 cm x 3.1 cm. No evidence of active color flow within the hematoma. The hematoma is slightly smaller compared to the examination on 09/24/2024.
Physical Exam
Vital Signs/Labs
Vital Signs
Temp Pulse Resp BP Pulse Ox
36.8 C 62 18 125/64 95
09/29/24 08:03 09/29/24 07:30 09/29/24 08:03 09/29/24 04:03 09/29/24 08:03
09/27/24 09/28/24 09/29/24
11:59 11:59 11:59
Actual Weight 83.5 kg 83.1 kg
09/29/24 04:12
09/29/24 04:11
Magnesium 1.8 mg/dl (1.6-2.3) 09/23/24 22:30
Triglycerides 79 mg/dl (10-149) 09/23/24 04:50
LDL Cholesterol, Calc 34 mg/dl 09/23/24 04:50
VLDL Cholesterol, Calc 15 mg/dl (0-30) 09/23/24 04:50
HDL Cholesterol 51 mg/dl 09/23/24 04:50
Physical Exam
Constitutional: No acute distress and Comfortable
EENT: Anicteric and Moist mucous membranes
Cardiovascular: Rhythm & rate is regular, Pedal edema is absent, JVD pressure is normal, S1S2 is normal and Murmur/rub/gallop absent
Respiratory: Respiratory effort normal, Lungs clear to auscul., Wheeze Absent, Crackles Absent and Rhonchi Absent
GI: Soft, Distention absent, Flat, Non tender and Normal bowel sounds
Neuro/Psych: AO x 3
Other: Cath Site (Right femoral access site is ecchymotic, extending into the right scrotum. There is tenderness to palpation.)
Data Reviewed
-
Date of Service: September 29, 2024
Medical Decision Making: Reviewed Test Results and Independent Historian Assessment
EKG: Tracing Personally Visualized and interpreted and Report Reviewed by me
Echo: Tracing Personally Visualized and interpreted and Report Reviewed by me
X-Ray/CT/US/MRI/NUC/PET: Image Personally Visualized and interpreted and Report Reviewed by me
Medical Tests (PFT, Pathology etc): Image Personally Visualized and interpreted and Report Reviewed by me
Labs: Labs Reviewed by me
Old Records: Reviewed
--- NOTE | 2024-09-29 10:09 | W.DS.TRANS ---
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
-
Discharge Instructions:
Sleep Apnea Risk High
Discharge Diagnosis/Procedures STEMI
Procedure 09/23/2024: Cardiac catheterization with
ELEANOR of LAD
Ischemic cardiomyopathy
NSVT
Right groin hematoma
Diet Low Cholesterol,2 Gram Sodium
Activity No strenuous activity
Additional Activity See attached instructions
Driving Restrictions No driving for 24 hours
Bathing Restrictions None
Other Services Cardiac Rehab,VN
Specialty Instructions Weigh Daily
Instructions: *CBC Heart Failure Instructions
Stand-Alone Forms: DC Instructions- Cath/EP Lab
Changes to Home Medications: Yes
Discharge Medications:
DC Medications w/original date entered in [employer]
albuterol sulfate 90 mcg/actuation aerosol inhaler 2 puff inhalation R QIDPRN PRN sob 04/16/24
allopurinol 300 mg tablet 300 mg PO DAILY Gout 04/16/24
fluoxetine 20 mg capsule 20 mg PO BID Mental Health/Anxiety 04/16/24
levothyroxine 50 mcg tablet (Synthroid) 50 mcg PO DAILY Thyroid 04/16/24
montelukast 10 mg tablet (Singulair) 10 mg PO HS Allergies 04/16/24
atorvastatin 40 mg tablet 40 mg PO QPM #30 tabs 06/23/24
Metamucil Gummy 3 gummy PO DAILY Constipation 08/06/24
fluticasone propionate 230 mcg-salmeterol 21 mcg/actuation HFA inhaler (Advair HFA) 2 puff inhalation R BID Lung/Breathing Issues 08/06/24
pantoprazole 40 mg tablet,delayed release (Protonix) 40 mg PO DAILY Gastrointestinal Issue 08/06/24
acetaminophen 325 mg tablet 650 mg (2 x 325 mg) PO Q4HPRN PRN mild pain #30 tabs 09/25/24
aspirin 81 mg chewable tablet 81 mg PO DAILY #90 tabs 09/25/24
clopidogrel 75 mg tablet 75 mg PO DAILY #90 tabs 09/25/24
dapagliflozin propanediol 10 mg tablet 10 mg PO DAILY #30 tabs 09/29/24
metoprolol succinate 50 mg tablet,extended release 24 hr 50 mg PO BID #60 tabs 09/29/24
sacubitril 24 mg-valsartan 26 mg tablet (Entresto) 1 tab PO BID #60 tabs 09/29/24
Home Medication Changes
Discontinue medications: Diltiazem 240 mg daily, furosemide 20 mg daily
New medications: Aspirin 81 mg, clopidogrel 75 mg, Farxiga, Entresto, metoprolol succinate
Pending Results: No
[2024-09-29 11:03] VITALS: BP 125/71
--- NOTE | 2024-09-29 11:04 | W.HF.CON ---
Heart Failure
- LV Function
Left ventricular function study result: LV Ejection fraction 36-40%
Ejection Fraction Percentage: 40
- ARNI
Patient already on ARNI: Yes
- ACEI/ARB
Patient already on ACEI/ARB: No
Heart Failure ACEI/ARB Not Indicated: Patient ordered/on ARNI
- Beta Artur
Patient already on Evidence Based Beta Artur: Yes
- Mineralocorticord Receptor Antagonist
Patient already on MRA: No
Heart Failure MRA Contraindication: Hyperkalemia - serum >5
- SGLT-2 Inhibitor
Patient already on SGLT-2 Inhibitor: Yes
- NYHA CHF Classification
NYHA CHF Classification Level: Class III - Symptoms w/ min exertion, interferes w/ nml daily activity
- ACC/AHA Stage
ACC/AHA Stage: Stage C: Symptomatic Heart Failure
--- NOTE | 2024-09-29 11:13 | PTCARENOTE ---
Patient discharge teaching completed and he verbalized understanding. IV and telemetry removed. All educational booklets provided to patient. His daughter will be coming to drive him home today
[2024-09-29 11:39] VITALS: BMI 26.0
[2024-09-29 12:48] VITALS: BP 115/50
--- NOTE | 2024-09-29 12:59 | PTCARENOTE ---
Patient discharged to home. Escorted to [facility] in a wheelchair
== END 2024-09-29 13:03 | disposition home health service (06) | DRG 322 ==
LOC: IVU 06:58
PROVIDERS: Internal Medicine; Internal Medicine Cardiovascular Disease; Nurse Practitioner; ADMITTING PHYSICIAN Internal Medicine Cardiovascular Disease; CONSULT PHYSICIAN Surgery Vascular Surgery; EMERGENCY PHYSICIAN Student in an Organized Health Care Education/Training Program; FAMILY PHYSICIAN Family Medicine
PROC: 4A023N7 Measurement of Cardiac Sampling and Pressure, Left Heart, Percutaneous Approach (ICD-10-PCS; 2024-09-23)
PROC: 027034Z Dilation of Coronary Artery, One Artery with Drug-eluting Intraluminal Device, Percutaneous Approach (ICD-10-PCS; 2024-09-23)
PROC: B240ZZ3 Ultrasonography of Single Coronary Artery, Intravascular (ICD-10-PCS; 2024-09-23)
PROC: B2111ZZ Fluoroscopy of Multiple Coronary Arteries using Low Osmolar Contrast (ICD-10-PCS; 2024-09-23)
PROC: 30233N1 Transfusion of Nonautologous Red Blood Cells into Peripheral Vein, Percutaneous Approach (ICD-10-PCS; 2024-09-24)
DX: I21.02 ST elevation (STEMI) myocardial infarction involving left anterior descending coronary artery (principal); I50.32 Chronic diastolic (congestive) heart failure; D62 Acute posthemorrhagic anemia; I47.20 Ventricular tachycardia, unspecified; I97.630 Postprocedural hematoma of a circulatory system organ or structure following a cardiac catheterization; I48.0 Paroxysmal atrial fibrillation; J45.909 Unspecified asthma, uncomplicated; I25.5 Ischemic cardiomyopathy; C10.9 Malignant neoplasm of oropharynx, unspecified; I11.0 Hypertensive heart disease with heart failure; E78.00 Pure hypercholesterolemia, unspecified; F32.A Depression, unspecified; I45.10 Unspecified right bundle-branch block; I25.10 Atherosclerotic heart disease of native coronary artery without angina pectoris; E87.5 Hyperkalemia; Y84.0 Cardiac catheterization as the cause of abnormal reaction of the patient, or of later complication, without mention of misadventure at the time of the procedure; Y71.0 Diagnostic and monitoring cardiovascular devices associated with adverse incidents; Y92.239 Unspecified place in hospital as the place of occurrence of the external cause; I69.398 Other sequelae of cerebral infarction; Z87.891 Personal history of nicotine dependence; Z90.49 Acquired absence of other specified parts of digestive tract; Z87.01 Personal history of pneumonia (recurrent); Z85.828 Personal history of other malignant neoplasm of skin; Z79.890 Hormone replacement therapy; Z87.19 Personal history of other diseases of the digestive system
CPT/HCPCS: 74174; 80048; 80053; 80061; 80069; 83036; 83735; 84484; 85014; 85018; 85025; 85027; 85347; 86850; 86900; 86901; 86920; 92978; 93005; 93306; 93458; 93926; 94640; 96374; 97116; 97163; 97166; 97530; 99152; 99153; 99291; C1725; C1753; C1760; C1769; C1874; C1894; C9606; P9016; Q9967

== ENCOUNTER 2024-11-09 14:34 | Emergency (ER) | payer OTHER, SELFPAY ==
--- NOTE | 2024-11-09 18:02 | ED.GENMED ---
History of Present Illness
General
Chief Complaint: Skin Surface Trauma
Source: patient
Exam Limitations: none
Time Seen by Provider: 11/09/24 17:37
Nursing documentation reviewed up to this point in time: agreed with
History of Present Illness
History of Present Illness:
Patient is an 79-year-old male who presents to the ER for evaluation. Patient reports he bumped his left phipps today in cardiac rehab on an exercise machine. Patient is on Plavix. He denies any other injuries.
Past History
Past History
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
ED Past Surgical History: Cholecystectomy, Orthopedic (Bilateral knee surgery) and Tonsilectomy
Social History
Tobacco: Former smoker
Alcohol: None
Personal:
Living: with family
Family History
Family History: Unable to obtain
Review of Systems
Review of Systems
Allergies reviewed?: Yes
Other source history: family
All Other Systems: ROS reviewed and negative except as documented in HPI and ROS
Phy Exam
General Physical Exam
General Presentation: no apparent distress
General age: appears stated age
General Skin: warm and dry
General Habitus: normal
General Mental: alert
General Hydration: appears well hydrated
Neurological Exam
Neurological Exam: alert and oriented x3
Musculoskeletal Exam
Musculoskeletal Exam: other (Small hematoma to proximal left anterior phipps strong distal pulses no calf tenderness or swelling no abrasions or lacerations)
Skin Exam
Skin Exam: normal color and warm/dry
Psychiatric Exam
Psychiatric Exam: normal mood/affect
Course
Orders/Labs/Results
Orders:
Orders
11/09/24 17:58
Tib/Fib, Left 2 View [CR Leg Tibia/fibula Left 2 Vw] Urgent
Comment:
Reason For Exam: TRAUMA
11/09/24 18:05
Vital Signs- Treatment ONCE
Frequency: Once
Vital Signs
Initial and Last Documented VS:
Initial Vital Signs
Temp Pulse Resp Pulse Ox
98.1 F 45 18 98
11/09/24 14:58 11/09/24 14:58 11/09/24 14:58 11/09/24 14:58
Last Documented Vital Signs
Temp Pulse Resp BP Pulse Ox
98.1 F 59 18 114/73 100
11/09/24 14:58 11/09/24 18:43 11/09/24 14:58 11/09/24 18:43 11/09/24 18:43
MDM/Problems Addressed
Differential Diagnosis Includes:
Not limited to contusion/hematoma fracture
MDM/Problems Addressed:
Symptoms are consistent with contusion patient in no acute distress able to bear weight x-rays negative.
*Radiology
Radiology exam reviewed: preliminary read by ED provider
*Pulse Oximetry
SaO2: 98
Oxygen Mode of Delivery: Room air
Patient hypoxic: no (100% ra )
*Critical Care Note
Total Time (30-74mins, 75-104mins- exclusive of procedures): Not Applicable
ED Attending Note
-
Portions of this chart may have been created with voice recognition software.� Occasional wrong word or��sound alike� substitutions may have occurred due to the inherent limitations of voice recognition software.
Discharge Plan
Departure
Patient Disposition: Home (Routine Discharge)
Date of Disposition: 11/09/24
Time of Disposition: 18:53
Patient with high blood pressure during this ER visit?: No
Condition: Good
Discharge Problem:
Contusion
Instructions: Contusion
Prescriptions:
No Action
levothyroxine [Synthroid] 50 mcg Tablet
50 mcg PO DAILY
montelukast [Singulair] 10 mg Tablet
10 mg PO HS
allopurinol 300 mg Tablet
300 mg PO DAILY
albuterol sulfate 90 mcg/actuation Hfa Aerosol Inhaler
2 puff INHALATION R QIDPRN PRN (Reason: sob)
fluoxetine 20 mg Capsule
20 mg PO BID
atorvastatin 40 mg Tablet
40 mg PO QPM Qty: 30 0RF
pantoprazole [Protonix] 40 mg Tablet,Delayed Release (Dr/Ec)
40 mg PO DAILY
fluticasone propion-salmeterol [Advair HFA] 230-21 mcg/actuation Hfa Aerosol Inhaler
2 puff INHALATION R BID
Metamucil Gummy
3 gummy PO DAILY
clopidogrel 75 mg Tablet
75 mg PO DAILY Qty: 90 3RF
aspirin 81 mg Tablet,Chewable
81 mg PO DAILY Qty: 90 0RF
acetaminophen 325 mg Tablet
650 mg PO Q4HPRN PRN (Reason: mild pain) Qty: 30 0RF
Entresto 24-26 mg Tablet
1 tab PO BID Qty: 60 2RF
dapagliflozin propanediol 10 mg Tablet
10 mg PO DAILY Qty: 30 2RF
metoprolol succinate 50 mg Tablet Extended Release 24 Hr
50 mg PO BID Qty: 60 2RF
Activity Restrictions/Additional Instructions:
As discussed x-rays are negative for fracture .
symptoms are consistent with contusion(bruise) .
you may ice the affected for the next 24 to 48 hours. Area keep elevated. Return if any worsening of symptoms.
Interventions
Interventions:
*Risk Screen - Suicide Last Done: 11/09/24 16:51
*General Assessment Last Done: 11/09/24 16:51
*Neglect/Abuse Screening Last Done: 11/09/24 16:51
*ED- Fall Risk Assessment Last Done: 11/09/24 16:51
*ED COVID-19 Vaccine History Last Done: 11/09/24 16:51
ED-Skin Assessment Last Done: 11/09/24 16:51
Discharge Date and Time
Print Language: ANDORRAN
[2024-11-09 18:43] VITALS: BP 114/73
== END 2024-11-09 19:20 | disposition home or self-care (01) ==
LOC: EMR 14:34
PROVIDERS: EMERGENCY PHYSICIAN Emergency Medicine; FAMILY PHYSICIAN Family Medicine
DX: S80.12XA Contusion of left lower leg, initial encounter (principal); W22.09XA Striking against other stationary object, initial encounter; E78.00 Pure hypercholesterolemia, unspecified; I10 Essential (primary) hypertension; J45.909 Unspecified asthma, uncomplicated; Z79.02 Long term (current) use of antithrombotics/antiplatelets; Z85.828 Personal history of other malignant neoplasm of skin; Z86.73 Personal history of transient ischemic attack (TIA), and cerebral infarction without residual deficits; Z87.891 Personal history of nicotine dependence
CPT/HCPCS: 99283; 73590

== ENCOUNTER 2024-11-16 15:07 | Outpatient (RCR) | payer OTHER, SELFPAY | END 2024-11-16 23:59 | disposition home or self-care (01) | LOC: CRHB 15:07 | PROVIDERS: ATTENDING PHYSICIAN Internal Medicine; FAMILY PHYSICIAN Family Medicine | DX: I25.10 Atherosclerotic heart disease of native coronary artery without angina pectoris (principal); Z95.5 Presence of coronary angioplasty implant and graft; I25.2 Old myocardial infarction | CPT/HCPCS: G0422; G0423 ==

== ENCOUNTER 2024-12-16 13:47 | Outpatient (RCR) | payer OTHER, SELFPAY | END 2024-12-16 23:59 | disposition home or self-care (01) | LOC: CRHB 13:47 | PROVIDERS: ATTENDING PHYSICIAN Internal Medicine; FAMILY PHYSICIAN Family Medicine | DX: I25.10 Atherosclerotic heart disease of native coronary artery without angina pectoris (principal); I25.2 Old myocardial infarction; Z95.5 Presence of coronary angioplasty implant and graft | CPT/HCPCS: G0422; G0423 ==

== ENCOUNTER 2025-01-15 14:06 | Outpatient (RCR) | payer OTHER, SELFPAY | END 2025-01-15 23:59 | disposition home or self-care (01) | LOC: CRHB 14:06 | PROVIDERS: ATTENDING PHYSICIAN Internal Medicine; FAMILY PHYSICIAN Family Medicine | DX: I25.10 Atherosclerotic heart disease of native coronary artery without angina pectoris (principal); Z95.5 Presence of coronary angioplasty implant and graft; I25.2 Old myocardial infarction | CPT/HCPCS: G0422; G0423 ==

== ENCOUNTER 2025-01-27 14:01 | Outpatient (RCR) | payer OTHER, SELFPAY | END 2025-01-27 17:27 | disposition home or self-care (01) | LOC: CRHB 14:01 | PROVIDERS: ATTENDING PHYSICIAN Internal Medicine; FAMILY PHYSICIAN Family Medicine | DX: I25.10 Atherosclerotic heart disease of native coronary artery without angina pectoris (principal); Z95.5 Presence of coronary angioplasty implant and graft; I25.2 Old myocardial infarction | CPT/HCPCS: G0422; G0423 ==